=== PATIENT | female | born 1960 | race Caucasian/White ===

== ENCOUNTER → 2017-12-06 13:32 | Outpatient (CLI) | payer OTHER, SELFPAY ==
[2017-12-06 15:15] LABS: Amphetamine Urine VISTA POSITIVE (<1000 ng/mL); Barbiturate Urine VISTA NEGATIVE (< 200 ng/mL); Benzodiazepine Urine VISTA NEGATIVE (< 200 ng/mL); Cocaine Urine VISTA NEGATIVE (< 300 ng/mL); Ecstacy Urine VISTA NEGATIVE (< 500 ng/mL); Methadone Urine VISTA NEGATIVE (< 300 ng/mL); PCP Urine VISTA NEGATIVE (< 25 ng/mL); THC Urine VISTA NEGATIVE (< 50 ng/mL); Vista UDS pH Range 5
== END ==
PROVIDERS: Family Provider Family Medicine; PCP Family Medicine; Visit Provider Anesthesiology Pain Medicine
DX: F11.20 Opioid dependence, uncomplicated (principal)
CPT/HCPCS: 80307

== ENCOUNTER → 2018-03-29 10:58 | Outpatient (CLI) | payer OTHER, SELFPAY ==
--- NOTE | 2018-03-29 11:02 | RAD_ITS ---
STUDY: X-RAY - SACRUM/COCCYX REASON FOR EXAM: Female, 57 years old. Back pain TECHNIQUE: 3 view(s) of the sacrum and coccyx were obtained. COMPARISON: None. FINDINGS: Normal bilateral sacroiliac joints. Normal visualized sacral ala and fused sacral bodies. Normal sacrococcygeal junction with a normal angulation. Normal coccygeal segments. Anterior listhesis L4 on L5. Jaundiced disease at L5-S1. The presacral soft tissue structures are unremarkable. RAD/Sacrum-Coccyx min 2 Views IMPRESSION: Normal x-rays of the sacrum and coccyx. Degenerative changes lumbar spine. Electronically Signed: Stanislav Ceballos DO at 23:58 EDT , Service support ,
--- NOTE | 2018-03-29 11:35 | RAD_ITS ---
STUDY: X-RAY - LUMBAR SPINE REASON FOR EXAM: Female, 57 years old. Back pain times few months TECHNIQUE: 3 view(s) of the lumbar spine were obtained. COMPARISON: MRI lumbar spine 09/09/2017. FINDINGS: Normal lumbar lordosis. There is no substantial scoliosis. There is a normal alignment of the vertebrae. Normal vertebral bodies and endplates. Disc space narrowing with vacuum disc formation at L5-S1, adjacent sclerosis. Mild disc space narrowing L4-5. Grade 1 anterolisthesis L4 on L5 and L5-S1. There is facet arthropathy and hypertrophy L4-5, 5 S1. The soft tissue structures are unremarkable. RAD/Lumbar Spine 2 or 3 Views IMPRESSION: Degenerative changes with predominantly lower lumbar facet arthropathy, grade 1 anterolisthesis L4 on L5, L5-S1 without significant change. Electronically Signed: Ashley Escobar MD at 7:58 EDT , Service support ,
== END ==
PROVIDERS: Family Provider Family Medicine; PCP Family Medicine; Visit Provider Anesthesiology Pain Medicine
DX: M54.9 Dorsalgia, unspecified (principal); W19.XXXA Unspecified fall, initial encounter
CPT/HCPCS: 72100; 72220

== ENCOUNTER 2021-01-04 19:09 | Emergency (ER) | payer MEDICARE, SELFPAY ==
[2021-01-04 19:10] VITALS: BP 155/86; PULSE 88; RESP 18; TEMP 36.6; O2SAT 98; BMI 39.7
--- NOTE | 2021-01-04 19:20 | EKG12_ITS ---
Test Reason : ABD PAIN Blood Pressure : / mmHG Vent. Rate : 082 BPM Atrial Rate : 082 BPM P-R Int : 156 ms QRS Dur : 078 ms QT Int : 384 ms P-R-T Axes : 068 005 048 degrees QTc Int : 448 ms Normal sinus rhythm Normal ECG Confirmed by ALEJANDRO FLORES, DAISY ([id number]), news copy editor AGUSTÍN SIDDIQUI ([id number]) on 01/08/2021 7:47:58 AM Referred By: ROCIO Confirmed By:DAISY ALLEN MD
--- NOTE | 2021-01-04 19:20 | CT_ITS ---
STUDY: CT ABDOMEN AND PELVIS WITHOUT CONTRAST REASON FOR EXAM: Female, 60 years old. Pain RADIATION DOSAGE (If Supplied By Facility): CTDIvol = ( 21.43 ) mGy, DLP = ( 1102.9 ) mGycm TECHNIQUE: Transaxial images were obtained from the dome of the diaphragm to the symphysis pubis without oral contrast, and without intravenous contrast. Sagittal and coronal images were reconstructed. Individualized dose optimization techniques were used for this CT. COMPARISON: None. FINDINGS: The visualized lung bases are unremarkable. The visualized portions of the heart are within normal limits. Normal liver. Cholelithiasis. Mild dilatation of the extrahepatic biliary system. Normal spleen. Normal pancreas. Normal bilateral adrenal glands. Normal right kidney. Normal left kidney. Small hiatal hernia. Normal small intestine. Normal colon. The appendix is visualized and appears normal. Normal abdominal aorta. Normal inferior vena cava. Normal retroperitoneum. Normal urinary bladder. Normal abdominal wall. Degenerative vertebral changes. Lumbosacral surgical fusion.. CT/Abdomen/Pelvis without Cont IMPRESSION: Small hiatal hernia. Cholelithiasis. Dilated common bile duct. Electronically Signed: Redd Walton DO at 21:01 EDT Tel [phone], Service support ,
[2021-01-04 19:30] LABS: Absolute Lymphocyte Count 1.19 X10^3/uL (0.83-4.51); Absolute Neutrophil Count 7.1 X10^3/uL (2.0-7.7); Basophil# 0.06 X10^3/uL; Basophil% 0.6 % (0-1); Eosinophil# 0.12 X10^3/uL; Eosinophils% 1.3 % (0-5); Hematocrit 42.6 % (37-47); Hemoglobin 12.1 g/dL (12.0-15.0); Lymphocyte # 1.19 X10^3/ul (4.0); Lymphocyte % 12.8 % (19-41); Mean Corp Hgb Conc 28.4 g/dL (32-36); Mean Corpuscular Hgb 23.3 pg (27.0-32.0); Mean Corpuscular Volume 81.9 fL (81-99); Mean Platelet Vol. 10.6 fl (6.2-12.0); Monocyte# 0.77 X10^3/uL; Monocyte% 8.3 % (0-10); NRBC Flagged by Analyzer 0 % (0-5); Neutrophil % 76.7 % (47-70); Platelet Count 369 K/mm3 (150-450); RBC Distribution Width CV 16.5 % (11.6-14.6); RBC Distribution Width SD 49.1 fl (35.1-43.9); White Blood Count 9.3 K/mm3 (4.4-11.0)
[2021-01-04] MEDS: morphine 8 MG/ML Syringe IV ×3 (19:32→22:40)
[2021-01-04] MEDS: Ondansetron 4 MG/2 ML Vial IV (19:32)
--- NOTE | 2021-01-04 19:33 | ED.DCSUM_ITS ---
History of Present Illness Chief Complaint: Abd Pain Informant: Patient, Family Onset: Today, Weeks Maximum Severity: Mild Narrative: Patient presents complaining of right-sided abdominal pain that she has had on and off for weeks she did not see her provider has not had this evaluated it intensified today, for unspecified reasons, it is not associate with activity food or meals, her bowel and bladder habits are unremarkable she has not seen her providers in over a month so some of her meds are not been taken, she has no history of GI ailment, no history of hepatobiliary dysfunction ulcer gallbladder bowel problems, she has had no exposures to coronavirus no cough no fever Past Medical History - Allergies and Home Meds Allergies/Adverse Reactions: Allergies hydroxychloroquine [From Plaquenil] Allergy (Verified 01/04/21 19:12) Hives nalbuphine [From Nubain] Allergy (Verified 01/04/21 19:12) Itching flu vaccine Allergy (Mild, Uncoded 01/04/21 19:12) unknown Primary Care Physician: Rigo Marcano MD [Primary Care Provider] - Past Medical History: - - Multiple unspecified disorders she is not been taking her meds for about a month Surgical History: - - BLTL. Smoking Status: Current every day smoker - Family History Maternal Family History: Family History (Last Updated 11/26/17 @ 09:29 by Gabby Borja) Other Cancer Cardiovascular disease Diabetes Hypertension Family History: Reports: Cancer, Heart Disease, Hypertension Paternal Family History: Family History (Last Updated 11/26/17 @ 09:29 by Gabby Borja) Other Cancer Cardiovascular disease Diabetes Hypertension Family History: Reports: Cancer, Heart Disease, Hypertension Review of Systems General: Denies: Chills, Fever, Sweats Eyes: Denies: Visual changes - bilaterally, Diplopia ENT: Denies: Rhinorrhea, Sore throat Cardiovascular: Denies: Chest pain, Palpitations Respiratory: Denies: Dyspnea, Cough, Dyspnea on exertion Gastrointestinal: Reports: Abdominal pain. Denies: Nausea, Vomiting, Diarrhea, Melena, Hematochezia Genitourinary: Denies: Dysuria, Hematuria, Frequency Musculoskeletal: Denies: Back pain, Extremity Pain Skin: Denies: Rash, Wounds Neurological: Denies: Headache, Weakness, Numbness Physical Exam Vital Signs/Narrative: Vital Signs Temp Pulse Resp BP Pulse Ox 01/04/21 19:10 97.8 F 88 18 155/86 H 98 General: Well nourished, Well developed, No Acute Distress Head: Normocephalic, Atraumatic Eyes: Perrl, EOMI ENT: Moist mucous membranes, No rhinorrhea Neck: Supple, Nontender Cardiovascular: Regular rate, Regular rhythm, No murmurs Respiratory: No distress, CTA bilaterally, Chest nontender Abdomen: Soft, Nondistended, Normal bowel sounds, Tender Back: Nontender, Normal Inspection Extremities: Nontender, No edema Skin: Normal color, No rash Neurological: Alert, Oriented x3, Cranial nerves II-XII grossly intact, Normal Strength, Normal Sensation Psychological: Normal affect, Normal Mood Diagnostic/Tx/Re-eval - Medical Decision Making Has pain to the right upper abdomen there is no rebound or guarding the backs unremarkable vital signs are unremarkable given all the above ED screening evaluation Patient's ED evaluation shows a white count of 9, her liver enzymes are elevated, her lipase is 32,000, her CT abdomen pelvis shows intrahepatic duct dilatation and dilatation of common bile duct, Lashanda lithiasis, at this time she was started on IV antibiotics continue pain management fluids, we spoke with surgery they indicates she will require ERCP Reviewed the CT report with the radiologist again they do not note any major abnormalities of the gallbladder except for the gallstones there is a stone that may or may not be in the neck of the gallbladder there is no gallbladder wall edema Spoke with the patient about potentially transferring to tertiary care center she agreed to transfer to [facility] if that was necessary by the surgical team here informs me now that they are unable to perform ERCP at this time we spoke with the [facility] transfer center septic her and she is transfer to [facility] the management, she remains hemodynamically stable Transfer to [facility] ED Impression final Cholecystitis, likely common bile duct stone acute pancreatitis ED Disposition - Plan for ED Patient: Referrals: Rigo Marcano MD [Primary Care Provider] -
[2021-01-04] MEDS: 0.9% Normal Saline 1,000 ML 125 ML IV (19:53)
[2021-01-04 21:00] VITALS: O2SAT 83
[2021-01-04 21:01] VITALS: BP 143/39; PULSE 73; RESP 18; O2SAT 98
[2021-01-04 21:21] LABS: ALB/GLOB Ratio 0.8 RATIO (0.9-2.4); AST(SGOT) 197 U/L (15-37); Alanine Aminotransfer ALT/SGPT 269 U/L (13-56); Albumin, Serum 3.9 g/dL (3.2-5.0); Alkaline Phosphatase 502 U/L (45-117); Anion Gap 8 (5-15); BUN 8 mg/dL (7-18); Calcium,Total 9.6 mg/dL (8.5-10.1); Chloride 106 mmol/L (98-107); EST Glomerular Filtration Rate 78 mL/min (>60); Est Glom Filt Rate - Afr Amer 94 mL/min (>60); Estimated Creatinine Clearance 66.19 ml/min; Globulin 4.7 g/dL (2.2-4.2); Glucose 119 mg/dL (74-106); Lipase 32049 U/L (73-393); Potassium 3.7 mmol/L (3.5-5.1); Protein, Total 8.6 g/dL (6.4-8.2); Sodium Level 138 mmol/L (136-145)
[2021-01-04 21:41] LABS: Bacteria 0 SEEN /hpf (None Seen); White Blood Cells 0 SEEN /hpf (0-5)
[2021-01-04 21:43] LABS: Color, Urine Amber (Yellow); Glucose, Dipstick Normal (Normal); Ketone-Dipstick 50 mg/dl (Negative); Leukocyte Esterase-Dipstick 25 /ul (Negative); Nitrite-Dipstick Negative (Negative); Occult Blood-Urine 10 /ul (Negative); Protein-Dipstick 30 mg/dl (Negative); Urine Clarity Cloudy (Clear); Urine Urobilinogen 4 mg/dl (Normal)
[2021-01-04 21:50] LABS: Urine Bilirubin Dipstick 3 mg/dL (Negative)
[2021-01-04 21:51] LABS: Squamous Epithelial Cells - UA 0-5 SEEN /hpf (5-10)
[2021-01-04 21:53] LABS: Hyaline Cast 0-5 SEEN /lpf (0-5)
[2021-01-04 21:54] LABS: Red Blood Cells-Urine 0-5 SEEN /hpf (0-5)
[2021-01-04 21:57] LABS: Mucous, Urine RARE /hpf (<or=2+)
[2021-01-04 22:24] VITALS: BP 117/50; PULSE 57; RESP 18; O2SAT 95
== END 2021-01-04 23:04 | disposition short-term general hospital (02) ==
LOC: ED 21:43
PROVIDERS: Emergency Provider Emergency Medicine; PCP Family Medicine
DX: K80.20 Calculus of gallbladder without cholecystitis without obstruction (principal); K44.9 Diaphragmatic hernia without obstruction or gangrene; K83.8 Other specified diseases of biliary tract; F17.200 Nicotine dependence, unspecified, uncomplicated
CPT/HCPCS: 74176; 80053; 81001; 83690; 85025; 93005; 96361; 96365; 96375; 96376; 99285; J7030; A4216; J2405

== ENCOUNTER 2023-08-23 03:35 | Inpatient (IN) | payer MEDICARE, SELFPAY ==
[2023-08-23] VITALS (18 sets, daily range): BP systolic 143–209; BP diastolic 59–132; PULSE 78–172; RESP 16–26; TEMP 36.6–36.7; O2SAT 89–98; BMI 38.4; BMI 38.0
--- NOTE | 2023-08-23 03:44 | EKG12_ITS ---
Test Reason : DYSRHYTHMIA Blood Pressure : / mmHG Vent. Rate : 097 BPM Atrial Rate : 097 BPM P-R Int : 158 ms QRS Dur : 080 ms QT Int : 384 ms P-R-T Axes : 054 006 052 degrees QTc Int : 487 ms Normal sinus rhythm Prolonged QT Abnormal ECG Confirmed by ALEJANDRO FLORES, DAISY ([id number]), general expeditor MATTEO MAYO ([id number]) on 08/25/2023 12:43:24 PM Referred By: Confirmed By:DAISY ALLEN MD
--- NOTE | 2023-08-23 03:44 | RAD_ITS ---
EXAM: XR CHEST, 1 VIEW CLINICAL INDICATION: cough, dyspnea TECHNIQUE: Frontal view of the chest. COMPARISON: 02/12/2017. FINDINGS: LUNGS AND PLEURAL SPACES: Unremarkable. No consolidation or edema. No pneumothorax. No effusion. HEART: Unremarkable. Cardiac silhouette not enlarged. MEDIASTINUM: Central airways and mediastinal contour are unremarkable. BONES/JOINTS: Unremarkable. No acute fracture. SOFT TISSUES: Unremarkable. RAD/Chest 1 View (Portable) IMPRESSION: No radiographic evidence of acute cardiopulmonary disease. Electronically Signed: Richy Jeronimo MD at 4:55 EST ,
--- NOTE | 2023-08-23 03:45 | ED.VIS.DYS ---
HPI History of Present Illness Chief Complaint: Shortness of Breath Detail of Chief Complaint: Shortness of breath that woke her up tonight Informant: patient Narrative Narrative: Patient presents to the emergency department complaining of shortness of breath. Patient states that she has had a cough for about 6 weeks. Her last couple days cough bringing up some yellow phlegm. She denies chest pain. She denies recent travel or surgery. She states that her grandkids were sick 6 weeks ago but they have gotten better. Patient states that she has not gone to the doctors for years. Currently noncompliant with her blood pressure medicine. She has not had a fever. [facility] Medical History Other intervertebral disc degeneration, lumbar region Other intervertebral disc degeneration, lumbosacral region Radiculopathy, lumbar region Radiculopathy, lumbosacral region Home Medications NK 08/23/23 [History Last Taken Unknown] Allergy/AdvReac Type Severity Reaction Status Date / Time Influenza Virus Vaccines Allergy Mild PT UNABLE Verified 01/18/23 11:15 TO RESPOND-NEEDS F/U hydroxychloroquine Allergy Hives Verified 01/04/21 19:12 [From Plaquenil] nalbuphine [From Nubain] Allergy Itching Verified 01/04/21 19:12 Family History Other Cancer Cardiovascular disease Diabetes Hypertension Surgical History partial ovary removed Social History Smoking Status: Current some day smoker tobacco type: e-cigarettes ROS ROS ED Review of Systems ROS Unobtainable: other Constitutional Constitutional ED: Reports lethargy; Denies chills, fever(s), sweats or weight loss Eyes Eyes: Denies blurry vision, change in vision or diplopia ENT ENT ED: Denies rhinorrhea or sore throat Cardiovascular Cardiovascular: Denies chest pain, orthopnea or racing heartbeat Respiratory/Chest Respiratory/Chest: Reports dyspnea and dyspnea on exertion; Denies cough, orthopnea or sputum Gastrointestinal Gastrointestinal: Denies abdominal pain, diarrhea, nausea or vomiting Genitourinary Genitourinary ED: Denies dysuria, hematuria or urinary frequency Musculoskeletal Musculoskeletal: Denies arthralgias, back pain, myalgias or neck pain Integumentary Denies abscess, Abrasions or rash Neurologic Neurologic: Denies headache(s) or weakness Psychiatric Psychiatric: Denies anxiety, depression or suicidal thoughts Endocrine Endocrinology: Denies polydipsia, polyphagia or polyuria Hematologic/Lymphatic Hematologic/Lymphatic: Denies easy bleeding, easy bruising or lymphadenopathy Allergic/Immunologic Allergic/Immunologic ED: Denies mouth swelling, tongue swelling or urticaria EXAM Physical Exam Const Vital Signs: 08/23/23 03:36 08/23/23 03:39 08/23/23 03:48 Temperature 98.0 F Temperature Source Temporal Pulse Rate 118 H Respiratory Rate 22 H Respiratory Effort Short of Breath Respiratory Pattern Tachypnea Blood Pressure 209/69 H Blood Pressure Mean 115 Pulse Ox 93 93 Oxygen Delivery Method Room Air Room Air Room Air 08/23/23 03:50 08/23/23 06:22 08/23/23 07:26 Temperature Temperature Source Pulse Rate 112 H 172 H Respiratory Rate 26 H 26 H Respiratory Effort Respiratory Pattern Tachypnea Blood Pressure 143/93 H Blood Pressure Mean 109 Pulse Ox 98 94 Oxygen Delivery Method Room Air Room Air 08/23/23 08:02 Temperature Temperature Source Pulse Rate 129 H Respiratory Rate 23 H Respiratory Effort Respiratory Pattern Blood Pressure 150/132 H Blood Pressure Mean 138 Pulse Ox 92 Oxygen Delivery Method Room Air Positive well nourished and well developed General Appearance ED: well developed and NAD HEENT Reports TM's clear and moist mucous membranes normocephalic and atraumatic; Negative for trauma or tenderness Tympanic Membrane ED: Yes TM's clear Eyes PERRL and EOMs intact bilaterally General Eye ED: Negative for pale conjunctiva or scleral icterus Neck no lymphadenopathy, supple and no JVD General: Negative for tenderness Chest Wall inspection of chest normal and palpation of chest normal Chest: Negative for tenderness Resp normal respiratory effort and No clear to auscultation bilaterally Resp Narrative: Good aeration bilaterally. Patient has expiratory wheezes bilaterally. Mild tachypnea. Mild conversational dyspnea. No accessory muscle use or retractions. Effort and Inspection: Negative for respiratory distress or pain with movement Auscultation: wheezes; Negative for rhonchi or diminished lung sounds Cardio regular rate, regular rhythm, S1 normal heart sound, S2 normal heart sound and no murmurs Peripheral Pulses: pulses 2+ throughout GI normal to inspection, nondistended, normoactive bowel sounds, soft to palpation, non-tender, non-distended and no masses Back/Spine no CVA tenderness and no thoracic nor lumbar tenderness Extremity normal to inspection General Extremety ED: Negative for edema General Extremity: Negative for edema Neuro oriented x3, CN's II-XII intact bilaterally, no sensory deficits noted and gait normal Sensorium / Orientation: awake, alert, oriented to person, oriented to place and oriented to time Motor Exam: strength 5/5 throughout and strength abnormal Psych mental status grossly normal Skin no rashes or lesions noted and no wounds MDM MDM MDM Narrative Medical decision making narrative: Patient presented with cough and dyspnea with wheezing. In the differential would be pneumonia or asthmatic bronchitis. Patient also initially presented hypertensive but without treatment and her hypertension improved. Systolic down to the 160s and diastolic down into the 80s. Patient was given DuoNeb aerosol as well as Solu-Medrol 125 mg IV. She continued to complain of dyspnea and was given more breathing treatments. She continued to complain of feeling dyspneic therefore I obtained a D-dimer which was elevated. I ordered a CTA of the chest to rule out PE. While awaiting D-dimer results patient became tachycardic and repeat EKG shows A-fib RVR I ordered Cardizem 20 mg IV bolus. Ordered a heparin drip. Discussed case with hospitalist will evaluate patient for admission. Turn case over to morning physician awaiting CTA results. Lab Data Attestation: I reviewed the patient's lab results. Labs: Laboratory Results - last 24 hr 08/23/23 08/23/23 03:45 03:54 WBC 6.8 RBC 4.16 L Hgb 9.8 L Hct 34.2 L MCV 82.2 MCH 23.6 L MCHC 28.7 L RDW Std Deviation 49.7 H RDW Coeff of Mango 16.8 H Plt Count 392 MPV 9.2 Immature Gran % (Auto) 0.300 Neut % (Auto) 67.8 Lymph % (Auto) 18.9 L [place] % (Auto) 8.4 Eos % (Auto) 3.7 Baso % (Auto) 0.9 Absolute Neuts (auto) 4.6 Absolute Lymphs (auto) 1.28 Nucleated RBC % 0 D-Dimer Quant (PE/DVT) 1.08 H* Sodium 140 Potassium 3.6 Chloride 107 Carbon Dioxide 25.0 Anion Gap 8 BUN 8 Creatinine 0.59 Estim Creat Clear Calc 87.56 Est GFR (MDRD) Af Amer 133 Est GFR (MDRD) Non-Af 110 BUN/Creatinine Ratio 13.5 Glucose 121 H Lactic Acid 1.3 Calcium 8.9 Radiography Diagnostic Testing: Clinical Impression(s) from Imaging Studies Chest X-Ray 08/23/23 03:44 IMPRESSION: No radiographic evidence of acute cardiopulmonary disease. Electronically Signed: Richy Jeronimo MD at 4:55 EST , 1 view chest x-ray obtained interpreted by myself as no evidence of infiltrate or pneumothorax or acute process. Radiology in agreement. EKG Initial EKG: Attestation: I personally reviewed and interpreted this EKG as follows: Comments: Sinus rhythm with rate of 97 bpm with prolonged QT Repeat EKG secondary to tachycardia shows A-fib RVR with rate of [address] changes. Discharge Plan Triage Chief Complaint: Shortness of Breath ED Provider: Gabriella Conrad Dx/Rx/DC Orders Clinical Impression: Acute dyspnea, Reactive airway disease, Atrial fibrillation with rapid ventricular response Prescriptions: No Action NK Primary Care Provider: Rigo Marcano Referrals: Rigo Marcano MD [Primary Care Provider] - Disposition Disposition: Acute Care [facility]
[2023-08-23] MEDS: Ipratropium/Albuterol Sulfate 3 ML AMPUL.NEB INHALATION ×2 (03:50→05:21)
[2023-08-23 04:03] LABS: Absolute Lymphocyte Count 1.28 X10^3/uL (0.83-4.51); Absolute Neutrophil Count 4.6 X10^3/uL (2.0-7.7); Basophil# 0.06 X10^3/uL; Basophil% 0.9 % (0-1); Eosinophil# 0.25 X10^3/uL; Eosinophils% 3.7 % (0-5); Hematocrit 34.2 % (37-47); Hemoglobin 9.8 g/dL (12.0-15.0); Lymphocyte # 1.28 X10^3/ul (0.83-4.51); Lymphocyte % 18.9 % (19-41); Mean Corp Hgb Conc 28.7 g/dL (32-36); Mean Corpuscular Hgb 23.6 pg (27.0-32.0); Mean Corpuscular Volume 82.2 fL (81-99); Mean Platelet Vol. 9.2 fl (6.2-12.0); Monocyte# 0.57 X10^3/uL; Monocyte% 8.4 % (0-10); NRBC Flagged by Analyzer 0 % (0-5); Neutrophil # 4.58 X10^3/uL (2.7-7.7); Neutrophil % 67.8 % (47-70); Platelet Count 392 K/mm3 (150-450); RBC Distribution Width CV 16.8 % (11.6-14.6); RBC Distribution Width SD 49.7 fl (35.1-43.9); Red Blood Count 4.16 M/mm3 (4.2-5.4); White Blood Count 6.8 K/mm3 (4.4-11.0)
[2023-08-23] MEDS: MethylPREDNISolone 125 MG/2 ML Vial IV (04:07)
[2023-08-23] MEDS: 0.9% Normal Saline (1000mL) 1,000 ML 150 ML IV (04:07)
[2023-08-23 04:40] LABS: Anion Gap 8 (5-15); BUN 8 mg/dL (7-18); BUN/Creat Ratio 13.5 RATIO (10-20); Calcium,Total 8.9 mg/dL (8.5-10.1); Chloride 107 mmol/L (98-107); Creatinine, Serum 0.59 mg/dL (0.55-1.02); EST Glomerular Filtration Rate 110 mL/min (>60); Est Glom Filt Rate - Afr Amer 133 mL/min (>60); Estimated Creatinine Clearance 87.56 ml/min; Glucose 121 mg/dL (74-106); Potassium 3.6 mmol/L (3.5-5.1); Sodium Level 140 mmol/L (136-145)
[2023-08-23 04:41] LABS: Lactic Acid 1.3 mmol/L (0.4-1.9)
[2023-08-23] MEDS: Albuterol 2.5 MG/3 ML VIAL.NEB. INHALATION ×2 (05:21→05:32)
--- NOTE | 2023-08-23 05:55 | CPS ---
[8803] x1 Duoneb & x2 Albuterol given to pt. in ER. Pre-HR=96, RR=26 with diminished breath sounds with scattered wheezes throughout. Post-MW=109, RR=24 with clearer breath sounds throughout; scattered wheezes still present.
[2023-08-23 07:44] LABS: D-Dimer Quantitative (DVT/PE) 1.08 FEU/ug/m (0.27-0.49)
--- NOTE | 2023-08-23 07:46 | CT_ITS ---
STUDY: CTA CHEST WITH CONTRAST REASON FOR EXAM: Female, 62 years old. Dyspnea RADIATION DOSAGE (If Supplied By Facility): CTDIvol = ( 14.76 ) mGy, DLP = ( 440.53 ) mGycm TECHNIQUE: Transaxial imaging was performed following intravenous administration of 100 ml of Isovue-370 contrast material. Coronal and sagittal reformatted images were created. 3D post processed images were created. Individualized dose optimization techniques were used for this CT. COMPARISON: Prior study dated: 02/12/17 FINDINGS: LUNGS: There are no pulmonary infiltrates. There are no pulmonary nodules or masses. PLEURAL SPACE: There are no pleural effusions. There is no pneumothorax. MEDIASTINUM: The heart and pericardium are within normal limits. There is no pneumomediastinum. There is no thoracic lymphadenopathy. VESSELS There is no pulmonary embolus. The pulmonary artery is normal in caliber. There is a stable 4.8 cm aneurysm of the ascending aorta. The aortic arch and descending thoracic aorta are normal in caliber. There is no thoracic aortic dissection. UPPER ABDOMEN: Images through the upper abdomen demonstrate no significant abnormality. BONES: There are no destructive osseous lesions. SOFT TISSUES: The visualized soft tissues are unremarkable. CT/CTA Chest W/WO Contrast IMPRESSION: No pulmonary embolus. Stable 4.8 cm aneurysm of the ascending aorta. No thoracic aortic dissection. No pulmonary infiltrates or pleural effusions. Electronically Signed: Heriberto Christensen MD at 9:02 EST ,
--- NOTE | 2023-08-23 07:52 | PCM.HP.STD ---
HPI - General General Date of Admission: 08/23/23 Date of Service: 08/23/23 HPI Narrative BEE SIDDIQUI, is a 62 F who came to ED after she was short of breath, progressively worsening for 6 weeks along with cough. She stated she had episodes of shortness of breath on exertion for last 6 weeks and mild cough with clearish sputum which turned with thick yellowish-greenish sputum. Last night she woke up with shortness of breath therefore came to ED. Denies fever or chills. She has mild pleuritic chest pain on the left posterior chest wall on coughing. In ED, no hypoxia but was tachypneic and short of breath. She is also tachycardic and BP high 209/69. Initially was sinus tachycardia but turned into A-fib with RVR after sometimes giving DuoNeb. She had 20 mg IV Cardizem bolu. Heart rate slowed down later on converted. She has history of SVT and was recommended ablation long time ago but has not seen cardiology/EP for at least for 5 years. Currently, she is not on home medications. She used to take metoprolol. She had history of mild smoking quit cigarette 10 years ago but she is still symptoms due to e-cigarette/vaping. She stated she used to smoke sometimes and a pack used to last for 7 days. Denies history of COPD and asthma and chronic shortness of breath. [facility] Medical History Other intervertebral disc degeneration, lumbar region Other intervertebral disc degeneration, lumbosacral region Radiculopathy, lumbar region Radiculopathy, lumbosacral region Home Medications NK 08/23/23 [History Last Taken Unknown] Allergy/AdvReac Type Severity Reaction Status Date / Time Influenza Virus Vaccines Allergy Mild PT UNABLE Verified 01/18/23 11:15 TO RESPOND-NEEDS F/U hydroxychloroquine Allergy Hives Verified 01/04/21 19:12 [From Plaquenil] nalbuphine [From Nubain] Allergy Itching Verified 01/04/21 19:12 Family History Other Cancer Cardiovascular disease Diabetes Hypertension Surgical History partial ovary removed Social History household members: spouse and children Smoking Status: Current some day smoker tobacco type: e-cigarettes ROS ROS Narrative Constitutional: Reports fatigue and weakness. No fever. HEENT: Reports systems reviewed and no addt'l complaints, except as documented Respiratory/Chest: Mild wheezing. Rest as described in HPI. CVS: Pleuritic chest pain as described in HPI Gastrointestinal: Denies coffee ground emesis, hematemesis or vomiting Genitourinary: Denies burning urination or new urinary tract symptoms Musculoskeletal: Denies acute joint pain or limited range of motion. No acute injury Neurologic: Denies seizure-like symptoms. No acute strokelike symptoms. skin: No ulcer. No rash Endocrinology: Reports systems reviewed and no addt'l complaints, except as documented Hematologic/Lymphatic: Reports systems reviewed and no addt'l complaints, except as documented Rest 14 ROS are negative except as mentioned in HPI Vital Signs Vital Signs Vital Signs: 08/23/23 03:36 08/23/23 03:39 08/23/23 03:48 Temperature 98.0 F Temperature Source Temporal Pulse Rate 118 H Respiratory Rate 22 H Respiratory Effort Short of Breath Respiratory Pattern Tachypnea Blood Pressure 209/69 H Blood Pressure Mean 115 Pulse Ox 93 93 Oxygen Delivery Method Room Air Room Air Room Air 08/23/23 03:50 08/23/23 06:22 08/23/23 07:26 Temperature Temperature Source Pulse Rate 112 H 172 H Respiratory Rate 26 H 26 H Respiratory Effort Respiratory Pattern Tachypnea Blood Pressure 143/93 H Blood Pressure Mean 109 Pulse Ox 98 94 Oxygen Delivery Method Room Air Room Air Weight Weight: 223 lb 12.307 oz Body Mass Index (BMI) 38.4 Physical Exam Narrative General: Alert, Oriented x3, Cooperative HEENT: Atraumatic, PERRLA, EOMI, Normocephalic Oral: No Gingival or Mucosal Lesions/ Ulcerations Neck: Supple, No JVD, Negative Carotid Bruits Lungs: Air entry diminished in bilateral lung bases. Bilateral expiratory wheezing. Tachypnea Cardiovascular: Regular rate, Regular Rhythm, mild sinus tachycardia, No murmurs Abdomen: Bowel Sounds Present, Soft, Non Tender, Non-Distended : No renal angle tenderness. No suprapubic tenderness. Extremities: No edema, Capillary Refill Less than 3 Seconds Skin: No rashes, No breakdown Musculoskeletal: No Tenderness to Palpation of Joints or Extremities. ROM intact. Neurological: Cranial nerves II-XII grossly intact, DTR 2+/4. No acute focal neurological deficit. Psych/Mental Status: Anxious, ADHD. Results Lab / Micro Data 08/23/23 03:45 08/23/23 03:45 Labs: Laboratory Results - last 24 hr 08/23/23 03:45: WBC 6.8, RBC 4.16 L, Hgb 9.8 L, Hct 34.2 L, MCV 82.2, MCH 23.6 L, MCHC 28.7 L, RDW Std Deviation 49.7 H, RDW Coeff of Mango 16.8 H, Plt Count 392, MPV 9.2, Immature Gran % (Auto) 0.300, Neut % (Auto) 67.8, Lymph % (Auto) 18.9 L, [place] % (Auto) 8.4, Eos % (Auto) 3.7, Baso % (Auto) 0.9, Absolute Neuts (auto) 4.6, Absolute Lymphs (auto) 1.28, Nucleated RBC % 0, Sodium 140, Potassium 3.6, Chloride 107, Carbon Dioxide 25.0, Anion Gap 8, BUN 8, Creatinine 0.59, Estim Creat Clear Calc 87.56, Est GFR (MDRD) Af Amer 133, Est GFR (MDRD) Non-Af 110, BUN/Creatinine Ratio 13.5, Glucose 121 H, Lactic Acid 1.3, Calcium 8.9 08/23/23 03:54: D-Dimer Quant (PE/DVT) 1.08 H* Micro: Microbiology 08/23/23 04:10 Nasal Secretion SARS-CoV-2 & FLU Antigen (Rapid) - Final Imagaing Radiology Impression Chest X-Ray 08/23/23 03:44 IMPRESSION: No radiographic evidence of acute cardiopulmonary disease. Electronically Signed: Richy Jeronimo MD at 4:55 EST , Assessment & Plan Assessment/Plan (1) Reactive airway disease: QUALIFIERS: Asthma severity: severe Asthma persistence: persistent Asthma complication type: with acute exacerbation Qualified Code(s): J45.51 - Severe persistent asthma with (acute) exacerbation (2) Atrial fibrillation with rapid ventricular response: PLAN: Plan 62-year-old female being admitted for progressive worsening shortness of breath/dyspnea, cough with sputum production 1. Subacute worsening shortness of breath/dyspnea, transient new onset A-fib with history of SVT: Patient is being admitted to PCU. It is unclear whether patient shortness of breath/dyspnea on exertion is a cardiac or pulmonary in origin. She might have airway reactive disease. BNP and 2D echo ordered. Respiratory panel and COVID PCR ordered. Sputum culture ordered. Patient is being managed on scheduled bronchodilator, IV Solu-Medrol, Mucinex, incentive spirometry and Pep. Chest x-ray individually does not show acute cardiopulmonary abnormality. CTPA did not show pulmonary embolism 2. History of SVT with transient new onset A-fib, resolved. Had transient A-fib probably due to DuoNeb and later which got converted with 20 mg IV Cardizem. Started on metoprolol 25 mg twice daily. 3. Ascending thoracic aortic Aneurysm: CTA chest showed stable 0.8 cm, AA thoracic aneurysm but no thoracic aortic dissection. No pulmonary infiltrate. No effusions. (4) Essential hypertension, hypertensive urgency: Systolic blood pressure is still high. Started on HCTZ was Lisinopril. From previous admission in 2017 it seems patient was on metoprolol, hydrochlorothiazide, Lasix. (5) Hypothyroidism: Patient not taking Synthroid. TSH and free T4 tomorrow AM. (6) ADHD: Patient was on Adderall in the past (7) morbid strange obesity: BMI 38.0 kg/m?. 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 (8) DVT prophylaxis: SCDs, lovenox. Living will/advanced directive/end of life care: Patient does not have living will or advanced directive. She does not have designated power of health care attorney for health office and states she lives with her dog/pets. After discussion of benefits/risks procedures involved with full code, DNR CC arrest and DNR CC, the patient opted for full code. Patient does want artificial life support including intubation, tube feed, ventilator and/chest compression, central venous catheter, vasopressor and DC shock if needed Total time spent in [id number] encounter in discussion of advanced directive 17 minutes. Microbiology Past 72 Hours 08/23/23 04:10 Nasal Secretion SARS-CoV-2 & FLU Antigen (Rapid) - Final Laboratory Results 08/23/23 03:45: WBC 6.8, RBC 4.16 L, Hgb 9.8 L, Hct 34.2 L, MCV 82.2, MCH 23.6 L, MCHC 28.7 L, RDW Std Deviation 49.7 H, RDW Coeff of Mango 16.8 H, Plt Count 392, MPV 9.2, Immature Gran % (Auto) 0.300, Neut % (Auto) 67.8, Lymph % (Auto) 18.9 L, [place] % (Auto) 8.4, Eos % (Auto) 3.7, Baso % (Auto) 0.9, Absolute Neuts (auto) 4.6, Absolute Lymphs (auto) 1.28, Nucleated RBC % 0, Sodium 140, Potassium 3.6, Chloride 107, Carbon Dioxide 25.0, Anion Gap 8, BUN 8, Creatinine 0.59, Estim Creat Clear Calc 87.56, Est GFR (MDRD) Af Amer 133, Est GFR (MDRD) Non-Af 110, BUN/Creatinine Ratio 13.5, Glucose 121 H, Lactic Acid 1.3, Calcium 8.9 08/23/23 03:54: D-Dimer Quant (PE/DVT) 1.08 H* Clinical Impression(s) from Imaging Studies Chest X-Ray 08/23/23 03:44 IMPRESSION: No radiographic evidence of acute cardiopulmonary disease. Charges/Coding Visit Charges Inpatient E&M: 77229 Init Hosp L3 Procedures Hospitalists Procedures: 97382 Advncd Care Plan 30 Min
[2023-08-23] MEDS: dilTIAZem 25 MG/5 ML Vial 20 MG IV BOLUS (07:56)
[2023-08-23 08:13] LABS: Prothrombin Time (Protime)PT. 13.6 SECONDS (11.7-14.9)
[2023-08-23 08:14] LABS: Partial Thromboplast Time 29.2 Seconds (24.1-36.2)
[2023-08-23] MEDS: HEPARIN/D5w 25,000 UNITS 25,000 UNITS/250 ML IV.SOLN. 14 UNITS CONT INF (08:35)
[2023-08-23] MEDS: Heparin Injection (Vial) 5,000 UNIT/ML VIAL 7500 UNIT IV (08:36)
[2023-08-23 09:02] LABS: Magnesium 2.6 mg/dL (1.6-2.6); Phosphorus 3.6 mg/dL (2.5-4.9)
--- NOTE | 2023-08-23 09:10 | ECHOD_ITS ---
Reason For Study: DYSPNEA Procedure This was a 2D Doppler, Color Flow transthoracic echocardiogram. Technically difficult study due to patient movement. Exam performed portable in patient room. Left Ventricle Mildly dilated left ventricle. Mild concentric left ventricular hypertrophy. The left ventricular ejection fraction is 60 %. Diastolic function is indeterminate. Right Ventricle Normal right ventricle. Atria The left atrium is mildly enlarged. Normal right atrium. Mitral Valve Mild (1+) mitral valve insufficiency. Tricuspid Valve Mild tricuspid valve insufficiency. Aortic Valve Trisinus/trileaflet aortic valve. Moderately severe (3+) aortic valve insufficiency. Pulmonic Valve The pulmonic valve is not well visualized. Trivial pulmonic valve insufficiency. Great Vessels Severely dilated aortic root. Pericardium/Pleural No pericardial effusion. MMode/2D Measurements & Calculations LVIDd: 5.6 cm IVSd: 1.1 cm LVOT diam: 2.3 cm LVIDs: 3.3 cm LVPWd: 1.2 cm LVOT area: 4.0 cm2 RVDd: 2.9 cm FS: 40.5 % Ao root diam: 5.0 cm LAV(MOD-bp): 61.5 ml LVAd ap4: 29.4 cm2 LAV(MOD-bp) Indexed: 30.0 ml/m2 LVLd ap4: 8.2 cm LAV(MOD-sp2): 58.5 ml EDV(MOD-sp4): 86.4 ml LAV(MOD-sp4): 59.1 ml EDV(sp4-el): 89.2 ml LVAs ap4: 20.3 cm2 LVLs ap4: 7.2 cm ESV(MOD-sp4): 48.8 ml ESV(sp4-el): 48.4 ml EF(MOD-sp4): 43.6 % EF(sp4-el): 45.7 % SV(MOD-sp4): 37.7 ml SV(sp4-el): 40.8 ml LA A4 area: 20.8 cm2 LA dimension(2D): 3.6 cm RA A4 area: 16.4 cm2 TAPSE: 1.5 cm Time Measurements MV dec time: 0.30 sec Doppler Measurements & Calculations MV E max renny: 115.6 cm/sec Lat Peak E' Renny: 8.1 cm/sec Med Peak E' Renny: 6.0 cm/sec MV A max renny: 128.0 cm/sec E/E' lat: 14.3 E/E' med: 19.4 MV E/A: 0.90 MV V2 max: 170.4 cm/sec Ao V2 max: 181.5 cm/sec MV max P.7 mmHg MV dec slope: 390.8 cm/sec2 Ao max P.2 mmHg MV V2 mean: 115.1 cm/sec Ao V2 mean: 124.2 cm/sec MV mean P.8 mmHg Ao mean P.0 mmHg MV V2 VTI: 66.9 cm Ao V2 VTI: 42.4 cm AI max renny: 419.4 cm/sec PA V2 max: 93.4 cm/sec AI max P.4 mmHg PA V2 mean: 63.8 cm/sec AI dec slope: 337.5 cm/sec2 AI P1/2t: 364.0 msec ECHO/Echo Complete Interpretation Summary Mildly dilated left ventricle. Mild concentric left ventricular hypertrophy. The left ventricular ejection fraction is 60 %. Diastolic function is indeterminate. The left atrium is mildly enlarged. Mild tricuspid valve insufficiency. Moderately severe (3+) aortic valve insufficiency. Severely dilated aortic root. Ordering Physician: Dom Pepper Referring Physician: Rigo Nguyen Performed By: Candi Byrd RCS
--- NOTE | 2023-08-23 09:11 | ED.RN ---
HEPARIN DRIP RATE CONFIRMED WITH ROEL CHARGE NURSE ON PCU AT 0850. DRIP ADMINISTERING AT 14ML/HR. PT DENIES S/S INFILTRATION OR INFECTION AT IV SITES. PT A &OX3. PT STATES SHE WILL CALL SISTER AND UPDATE HER.
[2023-08-23 09:48] LABS: BNP,B-Type NATRIURETIC PEPTIDE 77.4 pg/mL (0-100)
[2023-08-23 10:50] LABS: Troponin-I HS 7 pg/mL (3.0-54.0)
[2023-08-23] MEDS: guaiFENesin/D-Methorphan TAB.SR.12H 2 TABLET PO ×2 (10:59→21:15)
[2023-08-23] MEDS: Metoprolol Tartrate 25 MG Tablet PO ×2 (10:59→21:16)
[2023-08-23] MEDS: Lisinopril 10 MG Tablet PO ×2 (10:59→21:15)
[2023-08-23 13:07] LABS: Troponin-I HS 6 pg/mL (3.0-54.0)
[2023-08-23] MEDS: 0.9% Saline Lock 10 ML Syringe IV ×2 (13:20→14:53)
[2023-08-23] MEDS: Ipratropium 0.5 MG/2.5 ML SOLUTION INHALATION ×2 (13:51→20:31)
[2023-08-23] MEDS: Acetaminophen 325 MG Tablet 650 MG PO ×2 (14:39→21:15)
[2023-08-23] MEDS: hydrALAZINE 20 MG/ML Vial 10 MG IV (14:52)
[2023-08-23 16:50] LABS: Troponin-I HS 6 pg/mL (3.0-54.0)
[2023-08-24] VITALS (11 sets, daily range): BP systolic 118–148; BP diastolic 44–63; PULSE 71–95; RESP 16–20; TEMP 36.6–36.8; O2SAT 92–98
[2023-08-24] MEDS: Acetaminophen 325 MG Tablet 650 MG PO (03:50)
[2023-08-24] MEDS: 0.9% Saline Lock 10 ML Syringe IV (06:47)
[2023-08-24] MEDS: Ipratropium 0.5 MG/2.5 ML SOLUTION INHALATION ×5 (07:35→23:06)
--- NOTE | 2023-08-24 07:54 | PN.HOSP_ITS ---
Reason for Visit Reason for Visit: Diagnoses Unspecified atrial fibrillation (08/23/23) Severe persistent asthma with (acute) exacerbation (08/23/23) Objective Data Objective Data Vital Signs: Vital Signs Temp Pulse Resp BP Pulse Ox O2 Del Method O2 Flow Rate 98.0 F 95 18 126/44 H 94 Nasal Cannula 1 08/24/23 02:15 08/24/23 07:36 08/24/23 07:36 08/24/23 02:15 08/24/23 07:36 08/24/23 07:36 08/24/23 07:36 Oxygen Flow Rate (L/min) 1 Oxygen Delivery Method Nasal Cannula Weight: 221 lb 9.033 oz Body Mass Index (BMI) 38.0 Intake & Output: Intake and Output for Last 24 Hours 08/22/23 08/23/23 08/24/23 23:59 23:59 23:59 Intake Total 1034.77 / 1534.77 1000 / 1000 Output Total 1000 / 1400 850 / 850 Balance 34.77 / 134.77 150 / 150 Lab / Micro Data 08/24/23 07:15 08/24/23 07:15 Labs: Laboratory Results - last 24 hr 08/23/23 03:45: Phosphorus 3.6, Magnesium 2.6, B-Natriuretic Peptide 77.4 08/23/23 03:54: PT 13.6, INR 1.0, APTT 29.2 08/23/23 10:22: Troponin I High Sens 7 08/23/23 12:23: Troponin I High Sens 6 08/23/23 16:22: Troponin I High Sens 6 Micro: Microbiology 08/23/23 11:00 Sputum, Expectorated/Coughed Gram Stain - Final 08/23/23 08:40 Mucosa - Nasopharyngeal Respiratory Panel (PCR) - Final 08/23/23 08:40 Mucosa - Nasopharyngeal Coronavirus COVID-19 PCR - Final 08/23/23 04:10 Nasal Secretion SARS-CoV-2 & FLU Antigen (Rapid) - Final Radiography Diagnostic Testing: Radiology Impression Chest CTA 08/23/23 07:46 IMPRESSION: No pulmonary embolus. Stable 4.8 cm aneurysm of the ascending aorta. No thoracic aortic dissection. No pulmonary infiltrates or pleural effusions. Electronically Signed: Heriberto Christensen MD at 9:02 EST , Physical Exam Narrative Seen and examined. Patient noted headache since last evening and Tylenol not helping her. Denies chronic headache including migraine or tension headache. It started after admission probably medication induced therefore Solu-Medrol or nebulization therefore Solu-Medrol changed to prednisone. Physical exam General: Alert, Oriented x3, Cooperative HEENT: Atraumatic, PERRLA, EOMI, Normocephalic Oral: No Gingival or Mucosal Lesions/ Ulcerations Neck: Supple, No JVD, Negative Carotid Bruits Lungs: Air entry diminished in bilateral lung bases. Wheezing and tachypnea has improved. Cardiovascular: Regular rate, Regular Rhythm, mild sinus tachycardia, No murmurs Abdomen: Bowel Sounds Present, Soft, Non Tender, Non-Distended : No renal angle tenderness. No suprapubic tenderness. Extremities: No edema, Capillary Refill Less than 3 Seconds Skin: No rashes, No breakdown Musculoskeletal: No Tenderness to Palpation of Joints or Extremities. ROM intact. Neurological: Cranial nerves II-XII grossly intact, DTR 2+/4. No acute focal neurological deficit. Psych/Mental Status: Anxious, ADHD. Assessment & Plan Assessment/Plan (1) Reactive airway disease: QUALIFIERS: Asthma complication type: with acute exacerbation Asthma persistence: persistent Asthma severity: severe Qualified Code(s): J45.51 - Severe persistent asthma with (acute) exacerbation (2) Atrial fibrillation with rapid ventricular response: PLAN: Plan 62-year-old female being admitted for progressive worsening shortness of breath/dyspnea, cough with sputum production 1. Subacute worsening shortness of breath/dyspnea, possible reactive airway disease, transient new onset A-fib with history of SVT: Patient is being admitted to PCU. It is unclear whether patient shortness of breath/dyspnea on exertion is a cardiac or pulmonary in origin. She might have airway reactive disease. BNP and 2D echo ordered. Respiratory panel and COVID PCR ordered. Sputum culture ordered. Patient is being managed on scheduled bronchodilator, IV Solu-Medrol, Mucinex, incentive spirometry and Pep. Chest x-ray individually does not show acute cardiopulmonary abnormality. CTPA did not show pulmonary embolism 08/24: Solu-Medrol changed to prednisone.On ipratropium nebulization. Advised to follow-up in pulmonary clinic for PFT and sleep study and evaluation. 2. History of SVT with transient new onset A-fib, resolved. Had transient A-fib probably due to DuoNeb and later which got converted with 20 mg IV Cardizem. Started on metoprolol 25 mg twice daily. 08/24: Patient remains in sinus rhythm. Heart rate is controlled. 3. Ascending thoracic aortic Aneurysm: CTA chest showed stable 0.8 cm, AA thoracic aneurysm but no thoracic aortic dissection. No pulmonary infiltrate. No effusions. (4) Essential hypertension, hypertensive urgency: Systolic blood pressure is still high. Started on HCTZ was Lisinopril. From previous admission in 2017 it seems patient was on metoprolol, hydrochlorothiazide, Lasix. (5) Hypothyroidism: Patient not taking Synthroid. TSH and free T4 tomorrow AM. (6) ADHD: Patient was on Adderall in the past (7) morbid strange obesity: BMI 38.0 kg/m?. 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 (8) DVT prophylaxis: SCDs, lovenox. Living will/advanced directive/end of life care: Patient does not have living will or advanced directive. She does not have designated power of corporate associate attorney for health office and states she lives with her dog/pets. After discussion of benefits/risks procedures involved with full code, DNR CC arrest and DNR CC, the patient opted for full code. Patient does want artificial life support including intubation, tube feed, ventilator and/chest compression, central venous catheter, vasopressor and DC shock if needed Total time spent in [id number] encounter in discussion of advanced directive 17 minutes. Microbiology Past 72 Hours 08/23/23 04:10 Nasal Secretion SARS-CoV-2 & FLU Antigen (Rapid) - Final Laboratory Results 08/23/23 03:45: WBC 6.8, RBC 4.16 L, Hgb 9.8 L, Hct 34.2 L, MCV 82.2, MCH 23.6 L , MCHC 28.7 L, RDW Std Deviation 49.7 H, RDW Coeff of Mango 16.8 H, Plt Count 392, MPV 9.2, Immature Gran % (Auto) 0.300, Neut % (Auto) 67.8, Lymph % (Auto) 18.9 L , [place] % (Auto) 8.4, Eos % (Auto) 3.7, Baso % (Auto) 0.9, Absolute Neuts (auto) 4.6, Absolute Lymphs (auto) 1.28, Nucleated RBC % 0, Sodium 140, Potassium 3.6, Chloride 107, Carbon Dioxide 25.0, Anion Gap 8, BUN 8, Creatinine 0.59, Estim Creat Clear Calc 87.56, Est GFR (MDRD) Af Amer 133, Est GFR (MDRD) Non-Af 110, BUN/Creatinine Ratio 13.5, Glucose 121 H, Lactic Acid 1.3, Calcium 8.9 08/23/23 03:54: D-Dimer Quant (PE/DVT) 1.08 H* Clinical Impression(s) from Imaging Studies Chest X-Ray 08/23/23 03:44 IMPRESSION: No radiographic evidence of acute cardiopulmonary disease. Charges/Coding Visit Charges Inpatient E&M: 68145 Subs Hosp L2
[2023-08-24 08:16] LABS: Absolute Lymphocyte Count 0.94 X10^3/uL (0.83-4.51); Hematocrit 33.8 % (37-47); Hemoglobin 9.7 g/dL (12.0-15.0); Lymphocyte # 0.94 X10^3/ul (0.83-4.51); Lymphocyte % 8.4 % (19-41); Mean Corp Hgb Conc 28.7 g/dL (32-36); Mean Corpuscular Hgb 23.5 pg (27.0-32.0); Mean Platelet Vol. 9.3 fl (6.2-12.0); Monocyte# 0.31 X10^3/uL; Monocyte% 2.8 % (0-10); NRBC Flagged by Analyzer 0 % (0-5); Neutrophil # 9.95 X10^3/uL (2.7-7.7); Neutrophil % 88.4 % (47-70); Platelet Count 466 K/mm3 (150-450); RBC Distribution Width CV 16.7 % (11.6-14.6); RBC Distribution Width SD 49.5 fl (35.1-43.9); Red Blood Count 4.12 M/mm3 (4.2-5.4); White Blood Count 11.2 K/mm3 (4.4-11.0)
[2023-08-24 09:05] LABS: Anion Gap 5 (5-15); BUN 13 mg/dL (7-18); BUN/Creat Ratio 19.8 RATIO (10-20); Calcium,Total 9.6 mg/dL (8.5-10.1); Chloride 108 mmol/L (98-107); Cholesterol 207 mg/dL (200); Creatinine, Serum 0.66 mg/dL (0.55-1.02); EST Glomerular Filtration Rate 98 mL/min (>60); Est Glom Filt Rate - Afr Amer 118 mL/min (>60); Estimated Creatinine Clearance 78.27 ml/min; Glucose 133 mg/dL (74-106); High Density Lipoprotein 60 mg/dL; Sodium Level 137 mmol/L (136-145); Thyroid Stim Hormone (TSH) 1.53 uIU/mL (0.358-3.74); Triglycerides 95 mg/dL; Very Low Density Lipoprotein 19 mg/dL (5-40)
[2023-08-24] MEDS: Lisinopril 10 MG Tablet PO ×2 (10:23→22:13)
[2023-08-24] MEDS: guaiFENesin/D-Methorphan TAB.SR.12H 2 TABLET PO ×2 (10:23→22:13)
[2023-08-24] MEDS: Ketorolac 15 MG/ML Vial IV (10:23)
[2023-08-24] MEDS: Metoprolol Tartrate 25 MG Tablet PO ×2 (10:23→22:14)
[2023-08-24] MEDS: Amox/Clavulanate 875 MG Tablet PO ×2 (10:23→22:13)
--- NOTE | 2023-08-24 10:35 | CASEMGMT ---
Addendum entered by Mike Seals 08/24/23 16:25: Call received back from Dr Marcano's office. He is unable to take pt back at this time as he is not accepting new pt's. Pt made aware and was provided w/local physician's directory. Pt made aware to let staff know if she needs assistance w/getting an appt to get established w/a new PCP. Original Note: RN?CM?[employer]?CM?to room to meet with patient for initial transition planning/care coordination?assessment.?RN?CM?introduced self and role at [facility].? Pt voices understanding and consents to?assessment?at this time.? Pt resting in bed in no distress at this time.? Pt is A/O at this time and answers all questions appropriately.?? Care providers, pharmacy, and demographics verified/updated at this time. PCP: Pt used to see Dr Marcano but states she has not been in to see him for a few years. She states she would like to return to him. Call to Dr Marcano's office who states they will send message to Dr Marcano to see if he will accept her again. Awaiting return call. Specialists: [facility] Type Copy Examiner in [place] Preferred Pharmacy: [facility] Retail @ discharge Insurance: TDX Prescription Benefit:?Yes Living Will/HPOA:?Pt does not currently have LW/HCPOA and declines info at this time.? Pt made aware that she can contact as an out-pt and make appt in the future if she decides she would like to talk with someone about this or would like to utilize [facility] social work for advanced directive completion.? Given Glass Products Inspector Rac card with information and contact number. Pt expresses understanding.? LNOK: . 7 children. Only contact listed is daughter, Janine, and pt states does not want anyone else listed at this time Living Arrangements: Lives w/ and son in 2-story home w/FFSU w/one step to enter. Pt states she is independent w/ADL's and IADL's. States most groceries are on-line/home delivered Transportation:?Family DME: ? Denies using any DME and denies needs.?No home O2. No preference of DME co, should she qualify for O2 @ discharge. Does not have a pulse ox. HHC/SNF: No hx of either. Discussed [facility] and pt agreeable to referral for new-onset A-Fib Pt wishes to return home and states has no concerns with going home at time of discharge.? CM?to follow for home oxygen needs and any further discharge planning/needs.? Pt voices no further concerns/needs at this time.? Advised pt to ask for?CM?if any further questions/concerns/needs arise.? Voices understanding. PLAN:??Home w/Pt Link Follow for anti-coag Karina DE JESUSN?RN?CM
[2023-08-24] MEDS: Ibuprofen 600 MG Tablet PO (22:13)
[2023-08-25] VITALS (12 sets, daily range): BP systolic 105–132; BP diastolic 46–60; PULSE 64–88; RESP 16–20; TEMP 36.1–37; O2SAT 96–98
[2023-08-25] MEDS: Ipratropium 0.5 MG/2.5 ML SOLUTION INHALATION ×5 (03:32→20:06)
[2023-08-25] MEDS: Acetaminophen 325 MG Tablet 650 MG PO ×2 (03:44→21:13)
[2023-08-25] MEDS: Ibuprofen 600 MG Tablet PO (04:31)
--- NOTE | 2023-08-25 05:12 | NURSING ---
Addendum entered by Jeannette Little Read 08/25/23 05:24: Pt. made a comment earlier on in the shift that she was upset about no longer receiving IV solumedrol- stated it just started working and the didn't even tell me they were taking me off of it. Original Note: pt. c/o difficulty breathing, feels like she needs to cough something up but can't; strong, barking cough- SpO2 @ 98% on room air, placed on 2L O2 for comfort; normal color to skin. LCTA. VS WNL. Pt. coughing into emesis bag but no mucus/ phlegm noted inside. Pt. provided with cool water and warm tea; breathing tx. given by resp. approx. 1.5 hrs. ago. No coughing heard when walking past room shortly after giving warm tea.
--- NOTE | 2023-08-25 05:33 | RAD_ITS ---
INDICATION: c/o SOB -- portable EXAMINATION/TECHNIQUE: X-RAY - XR Chest 1 View AP portable. 5:46 AM COMPARISON: 08/23/2023 FINDINGS: LINES/DEVICES: None. LUNGS: No consolidation. No pneumothorax. MEDIASTINUM: Unremarkable. CARDIAC SILHOUETTE: Not enlarged. BONES AND SOFT TISSUES: No acute abnormalities. RAD/Chest 1 View (Portable) IMPRESSION: No evidence of active intrathoracic disease. Electronically Signed: Anuradha Flores MD at 6:24 EST ,
[2023-08-25] MEDS: Ketorolac 15 MG/ML Vial IV (06:25)
[2023-08-25] MEDS: 0.9% Saline Lock 10 ML Syringe IV ×4 (06:25→23:48)
[2023-08-25] MEDS: Benzonatate 100 MG Capsule PO ×3 (06:26→23:58)
[2023-08-25] MEDS: BENZOCAINE/MENTHOL 1 LOZENGE MUCOUS MEM (06:26)
--- NOTE | 2023-08-25 07:00 | NURSING ---
Notified Dr. Jimenez of pt.'s change in status (SOB, coughing); ordered PRN tessalon pearles 100 mg 1 cap PO TID, cough drops po 1 drop q2h PRN, 1x dose of toradol 15 mg/1 ml, give 15 mg IV, and chest x-ray
[2023-08-25] MEDS: predniSONE 20 MG Tablet 40 MG PO (08:38)
[2023-08-25] MEDS: Metoprolol Tartrate 25 MG Tablet PO ×2 (09:02→21:11)
[2023-08-25] MEDS: Lisinopril 10 MG Tablet PO ×2 (09:02→21:11)
[2023-08-25] MEDS: Amox/Clavulanate 875 MG Tablet PO ×2 (09:02→21:12)
[2023-08-25] MEDS: guaiFENesin/D-Methorphan TAB.SR.12H 2 TABLET PO (09:02)
[2023-08-25] MEDS: guaiFENesin/Codeine 5 ML UDC 10 ML PO ×4 (12:41→21:11)
[2023-08-25] MEDS: MethylPREDNISolone 125 MG/2 ML Vial 60 MG IV ×3 (12:55→23:47)
--- NOTE | 2023-08-25 15:45 | CHAPLAIN ---
Type of Pastoral Visit _x__ Initial Visit ___ Follow-up Visit ___ On-call Visit ___ General Patient Visit ___ Spiritual Assessment ___ Family Conference ___ Bereavement ___ Rapid Response ___ Code Blue ___ Other (describe below) Pastoral Care Referral From _x__ Patient ___ Family ___ Nurse ___ Physician ___ Hygiene Teacher ___ R[employer] Press Operator ___ Other (describe below) Sacrament/Intervention _x__ Active listening ___ Anointing ___ Caodaism ___ Bereavement ___ Communion _x__ Courtney exploration ___ ___ Life review _x__ Prayer ___ Reconciliation ___ Sacrament of Sick _x__ Supportive presence ___ Wedding ___ Other (describe below) Pastoral Comments patient admits to concerns about her health and what is happening in her body; pt also reveals loneliness and dealing with family/people who do stupid; looking for the bright things in her life the patient has kittens and two grandchildren in [employer] school who are doing so well and learning good things in life and courtney; pt admits that this is about only thing that keeps her going; pt is open to presence and prayers for support;
--- NOTE | 2023-08-25 16:20 | PCM.PN.HOSP ---
Reason for Visit Reason for Visit: Diagnoses Unspecified atrial fibrillation (08/23/23) Severe persistent asthma with (acute) exacerbation (08/23/23) Objective Data Objective Data Vital Signs: Vital Signs Temp Pulse Resp BP Pulse Ox O2 Del Method O2 Flow Rate 97.2 F L 85 20 H 105/57 L 98 Nasal Cannula 2 08/25/23 10:00 08/25/23 13:28 08/25/23 13:28 08/25/23 10:00 08/25/23 10:00 08/25/23 10:00 08/25/23 10:03 Oxygen Flow Rate (L/min) 2 Oxygen Delivery Method Nasal Cannula Weight: 221 lb 9.033 oz Body Mass Index (BMI) 38.0 Intake & Output: Intake and Output for Last 24 Hours 08/23/23 08/24/23 08/25/23 23:59 23:59 23:59 Intake Total 1034.77 / 1534.77 1000 / 1000 1959 Output Total 1000 / 1400 850 / 850 Balance 34.77 / 134.77 150 / 150 1959 Lab / Micro Data 08/24/23 07:15 08/24/23 07:15 Micro: Microbiology 08/23/23 11:00 Sputum, Expectorated/Coughed Gram Stain - Final 08/23/23 11:00 Sputum, Expectorated/Coughed Respiratory Culture - Preliminary Staphylococcus aureus 08/23/23 08:40 Mucosa - Nasopharyngeal Respiratory Panel (PCR) - Final 08/23/23 08:40 Mucosa - Nasopharyngeal Coronavirus COVID-19 PCR - Final 08/23/23 04:10 Nasal Secretion SARS-CoV-2 & FLU Antigen (Rapid) - Final Radiography Diagnostic Testing: Radiology Impression Chest X-Ray 08/25/23 05:33 IMPRESSION: No evidence of active intrathoracic disease. Electronically Signed: Anuradha Flores MD at 6:24 EST , Physical Exam Narrative Seen and examined. Patient headache has improved and it seems probably from the cough. She still has wheezing and cough and he states that Solu-Medrol was helping therefore Solu-Medrol was restarted. Sputum culture shows Staph aureus. Patient on Augmentin. Vancomycin added Physical exam General: Alert, Oriented x3, Cooperative HEENT: Atraumatic, PERRLA, EOMI, Normocephalic Oral: No Gingival or Mucosal Lesions/ Ulcerations Neck: Supple, No JVD, Negative Carotid Bruits Lungs: Air entry diminished in bilateral lung bases. Bilateral wheezing, Intractable cough. Respiratory rate 20 mild tachypnea on 2 L of oxygen. Mild respiratory distress. Cardiovascular: Regular rate, Regular Rhythm, mild sinus tachycardia, diastolic murmur on right second ICS. Abdomen: Bowel Sounds Present, Soft, Non Tender, Non-Distended : No renal angle tenderness. No suprapubic tenderness. Extremities: No edema, Capillary Refill Less than 3 Seconds Skin: No rashes, No breakdown Musculoskeletal: No Tenderness to Palpation of Joints or Extremities. ROM intact. Neurological: Cranial nerves II-XII grossly intact, DTR 2+/4. No acute focal neurological deficit. Psych/Mental Status: Anxious, ADHD. Assessment & Plan Assessment/Plan (1) Reactive airway disease: QUALIFIERS: Asthma severity: severe Asthma persistence: persistent Asthma complication type: with acute exacerbation Qualified Code(s): J45.51 - Severe persistent asthma with (acute) exacerbation (2) Atrial fibrillation with rapid ventricular response: PLAN: Plan 62-year-old female being admitted for progressive worsening shortness of breath/dyspnea, cough with sputum production 1. Subacute worsening shortness of breath/dyspnea, possible reactive airway disease, transient new onset A-fib with history of SVT: Patient is being admitted to PCU. It is unclear whether patient shortness of breath/dyspnea on exertion is a cardiac or pulmonary in origin. She might have airway reactive disease. BNP and 2D echo ordered. Respiratory panel and COVID PCR ordered. Sputum culture ordered. Patient is being managed on scheduled bronchodilator, IV Solu-Medrol, Mucinex, incentive spirometry and Pep. Chest x-ray individually does not show acute cardiopulmonary abnormality. CTPA did not show pulmonary embolism 08/24: Solu-Medrol changed to prednisone.On ipratropium nebulization. Advised to follow-up in pulmonary clinic for PFT and sleep study and evaluation. 08/25: Patient was put back on Solu-Medrol. Repeat chest x-ray was done which does not show acute infiltrate but patient has cough with purulent sputum and sputum culture showing Staph aureus therefore vancomycin was started. Patient already on Augmentin. Respiratory panel and COVID PCR are negative. 2. History of SVT with transient new onset A-fib, resolved. Had transient A-fib probably due to DuoNeb and later which got converted with 20 mg IV Cardizem. Started on metoprolol 25 mg twice daily. 08/24: Patient remains in sinus rhythm. Heart rate is controlled. 3. Ascending thoracic aortic Aneurysm: CTA chest showed stable 0.8 cm, AA thoracic aneurysm but no thoracic aortic dissection. No pulmonary infiltrate. No effusions. (4) Essential hypertension, hypertensive urgency: Systolic blood pressure is still high. Started on HCTZ was Lisinopril. From previous admission in 2017 it seems patient was on metoprolol, hydrochlorothiazide, Lasix. (5) Hypothyroidism: Patient not taking Synthroid. TSH and free T4 tomorrow AM. (6) ADHD: Patient was on Adderall in the past (7) morbid strange obesity: BMI 38.0 kg/m?. [employer] consult weight loss and lifestyle changes encouraged. (8) DVT prophylaxis: SCDs, lovenox. Living will/advanced directive/end of life care: Patient does not have living will or advanced directive. She does not have designated power of securities attorney for health office and states she lives with her dog/pets. After discussion of benefits/risks procedures involved with full code, DNR CC arrest and DNR CC, the patient opted for full code. Patient does want artificial life support including intubation, tube feed, ventilator and/chest compression, central venous catheter, vasopressor and DC shock if needed Clinical Impression(s) from Imaging Studies Chest X-Ray 08/23/23 03:44 IMPRESSION: No radiographic evidence of acute cardiopulmonary disease. Electronically Signed: Richy Jeronimo MD at 4:55 EST , Chest CTA 08/23/23 07:46 IMPRESSION: No pulmonary embolus. Stable 4.8 cm aneurysm of the ascending aorta. No thoracic aortic dissection. No pulmonary infiltrates or pleural effusions. Electronically Signed: Heriberto Christensen MD at 9:02 EST , Echocardiogram 08/23/23 09:10 Interpretation Summary Mildly dilated left ventricle. Mild concentric left ventricular hypertrophy. The left ventricular ejection fraction is 60 %. Diastolic function is indeterminate. The left atrium is mildly enlarged. Mild tricuspid valve insufficiency. Moderately severe (3+) aortic valve insufficiency. Severely dilated aortic root. Chest X-Ray 08/25/23 05:33 IMPRESSION: No evidence of active intrathoracic disease. Charges/Coding Visit Charges Inpatient E&M: 96303 Subs Hosp L2
[2023-08-25] MEDS: Vancomycin HCl 1,500 MG in 0.9% Normal Saline (500mL Bag) 500 ML 250 MG IV (17:44)
--- NOTE | 2023-08-25 19:07 | PCM.RX.CS ---
Consult Antibiotic Management Pharmacy has been consulted to manage selected antiobiotic: Vancomycin Type of Intervention Type of Consult: New start Suspected Infection Suspected Infection: Pneumonia Labs Labs: Sodium 137 mmol/L (136-145) 08/24/23 07:15 Potassium 4.0 mmol/L (3.5-5.1) 08/24/23 07:15 Chloride 108 mmol/L (98-107) H 08/24/23 07:15 Carbon Dioxide 24.0 mmol/L (21.0-32.0) 08/24/23 07:15 Anion Gap 5 (5-15) 08/24/23 07:15 BUN 13 mg/dL (7-18) 08/24/23 07:15 Creatinine 0.66 mg/dL (0.55-1.02) 08/24/23 07:15 Est GFR (MDRD) Af Amer 118 mL/min (>60) 08/24/23 07:15 Est GFR (MDRD) Non-Af 98 mL/min (>60) 08/24/23 07:15 BUN/Creatinine Ratio 19.8 RATIO (10-20) 08/24/23 07:15 Glucose 133 mg/dL (74-106) H 08/24/23 07:15 Microbiology Microbiology: Microbiology 08/25/23 17:55 Urine, Random Legionella Antigen - Final 08/25/23 17:55 Urine, Random Streptococcus pneumoniae Antigen (M - Final 08/23/23 11:00 Sputum, Expectorated/Coughed Gram Stain - Final 08/23/23 11:00 Sputum, Expectorated/Coughed Respiratory Culture - Preliminary Staphylococcus aureus 08/23/23 08:40 Mucosa - Nasopharyngeal Respiratory Panel (PCR) - Final 08/23/23 08:40 Mucosa - Nasopharyngeal Coronavirus COVID-19 PCR - Final 08/23/23 04:10 Nasal Secretion SARS-CoV-2 & FLU Antigen (Rapid) - Final Goal Trough Goal Trough: 15-20 mcg/mL Pharmacy Plan for Drug Dosing Pharmacy Plan for Drug Dosing: NEW START IV VANCOMYCIN Consulting Physician: Dr. Pepper Indication: R/O pneumonia Goal Trough: 15-20 SrCr: 0.66 CrCl: 104 mL/min (using adjbw) Comments: Patient had initial dose of 1500mg IV x1 08/25/23 @7704 Vancomycin Dose: Based on CrCl using adjusted body weight, pt technically qualifies for Q8h dosing. However; due to her age and possible accumulation of vancomycin d/t habitus, am hesitant to start vancomycin at this frequency. Will Start patient on 2000mg IV Q12hr instead, and can adjust based on trough levels thereafter. Pending Level: 08/27/23 @4598 Pharmacy Service will continue to monitor and adjust dosing as required.
[2023-08-25 19:24] LABS: M R Staph aureus DNA By PCR Negative (Negative); Probe Check PASS; Specimen Processing Control PASS
[2023-08-25] MEDS: guaiFENesin/D-Methorphan TAB.SR.12H 1 TABLET PO (21:11)
[2023-08-26] VITALS (12 sets, daily range): BP systolic 118–156; BP diastolic 43–99; PULSE 63–96; RESP 14–20; TEMP 36.4–36.7; O2SAT 94–100
[2023-08-26] MEDS: guaiFENesin/Codeine 5 ML UDC 10 ML PO ×6 (02:21→21:42)
[2023-08-26] MEDS: 0.9% Saline Lock 10 ML Syringe IV (06:16)
[2023-08-26] MEDS: MethylPREDNISolone 125 MG/2 ML Vial 60 MG IV ×3 (06:16→18:42)
[2023-08-26] MEDS: Vancomycin HCl 2,000 MG in 0.9% Normal Saline (500mL Bag) 500 ML 250 MG IV (06:19)
[2023-08-26 06:49] LABS: Absolute Lymphocyte Count 0.68 X10^3/uL (0.83-4.51); Absolute Neutrophil Count 5.7 X10^3/uL (2.0-7.7); Hematocrit 31.8 % (37-47); Hemoglobin 9.2 g/dL (12.0-15.0); Lymphocyte # 0.68 X10^3/ul (0.83-4.51); Lymphocyte % 10.4 % (19-41); Mean Corp Hgb Conc 28.9 g/dL (32-36); Mean Corpuscular Hgb 23.6 pg (27.0-32.0); Mean Corpuscular Volume 81.5 fL (81-99); Mean Platelet Vol. 9.4 fl (6.2-12.0); Monocyte# 0.11 X10^3/uL; Monocyte% 1.7 % (0-10); NRBC Flagged by Analyzer 0 % (0-5); Neutrophil % 87.4 % (47-70); Platelet Count 413 K/mm3 (150-450); RBC Distribution Width CV 16.3 % (11.6-14.6); RBC Distribution Width SD 48.5 fl (35.1-43.9); White Blood Count 6.5 K/mm3 (4.4-11.0)
[2023-08-26] MEDS: Ipratropium 0.5 MG/2.5 ML SOLUTION INHALATION ×3 (07:16→22:00)
[2023-08-26 07:53] LABS: Anion Gap 4 (5-15); BUN 19 mg/dL (7-18); BUN/Creat Ratio 28.9 RATIO (10-20); Calcium,Total 8.9 mg/dL (8.5-10.1); Chloride 110 mmol/L (98-107); Creatinine, Serum 0.66 mg/dL (0.55-1.02); EST Glomerular Filtration Rate 97 mL/min (>60); Est Glom Filt Rate - Afr Amer 118 mL/min (>60); Estimated Creatinine Clearance 78.27 ml/min; Glucose 176 mg/dL (74-106); Sodium Level 138 mmol/L (136-145)
[2023-08-26] MEDS: Metoprolol Tartrate 25 MG Tablet PO ×2 (08:16→21:43)
[2023-08-26] MEDS: guaiFENesin/D-Methorphan TAB.SR.12H 1 TABLET PO ×2 (08:16→21:43)
[2023-08-26] MEDS: Amox/Clavulanate 875 MG Tablet PO ×2 (08:16→21:43)
[2023-08-26] MEDS: Lisinopril 10 MG Tablet PO ×2 (10:57→21:42)
--- NOTE | 2023-08-26 11:52 | CON.PCM.CA_ITS ---
Assessment & Plan Assessment/Plan (1) First detected episode of atrial fibrillation: PLAN: Presently normal sinus rhythm. Brief episode of A-fib in the setting of asthma exacerbation and pneumonia. Continue aspirin. Monitor. If any further episodes, then will recommend anticoagulation. Recommend 15-day event monitor upon discharge home. (2) Aortic regurgitation: PLAN: Moderate to severe aortic regurgitation noted on echocardiogram. Recommend cardiac MRI as an outpatient for further evaluation. (3) Thoracic aortic aneurysm: PLAN: 4.8 cm ascending thoracic aortic aneurysm. For optimal blood pressure control. Recommend establishing care with thoracic surgery for follow-up. (4) Reactive airway disease: QUALIFIERS: Asthma severity: severe Asthma persistence: persistent Asthma complication type: with acute exacerbation Qualified Co de(s): J45.51 - Severe persistent asthma with (acute) exacerbation PLAN: As per internal medicine. (5) Pneumonia: PLAN: As per internal medicine. (6) HTN (hypertension): QUALIFIERS: Hypertension type: essential hypertension Qualified Code(s): I10 - Essential (primary) hypertension PLAN: Beta-blockers and NIANA inhibitors. HPI Consult Data Date of Consult: 08/26/23 HPI Narrative Reason for Consultation: Atrial fibrillation HPI Narrative: This lady has history of thoracic aortic aneurysm and hypertension. Also history of asthma. She has been admitted to the hospital with asthma exacerbation with pneumonia. In the emergency room, she was noted to be in atrial fibrillation. Subsequently she converted on her own. Patient has had an echocardiogram done as part of her workup. It showed moderate to severe aortic regurgitation. Severely dilated ascending aorta was also reported. Normal LV systolic function with mildly dilated left ventricle. Patient denies any chest pain either at rest or with exertion. She does complain of shortness of breath with exertion. No orthopnea. No PND. No ankle edema. Denies any history of palpitations. Denies any bleeding disorders. [facility] Medical History (Updated 08/26/23 @ 11:[address] Melida Moore MD) Hypertension Other intervertebral disc degeneration, lumbar region Other intervertebral disc degeneration, lumbosacral region Radiculopathy, lumbar region Radiculopathy, lumbosacral region Home Medications NK 08/23/23 [History Last Taken Unknown] Allergy/AdvReac Type Severity Reaction Status Date / Time Influenza Virus Vaccines Allergy Mild PT UNABLE Verified 01/18/23 11:15 TO RESPOND-NEEDS F/U hydroxychloroquine Allergy Hives Verified 01/04/21 19:12 [From Plaquenil] [email or web address] [From Nubain] Allergy Itching Verified 01/04/21 19:12 Family History (Updated 08/23/23 @ 09:35 by Florence Purcell) Father Cancer Mother Cardiovascular disease Sister Diabetes Mother Hypertension Surgical History partial ovary removed Social History (Updated 08/23/23 @ 09:35 by Florence Purcell) household members: spouse and children Smoking Status: Current some day smoker tobacco type: e-cigarettes Physical Exam Narrative Comfortable. No apparent distress. Lying flat. Heart sounds 1 and 2 are noted. 3/6 systolic murmur and 2/6 diastolic murmur at base. Chest clear to auscultation. Alert oriented x 3. No ankle edema. Risk Stratification Risk Stratification Applicable: No Objective Data Vital Signs: Vital Signs Temp Pulse Resp BP Pulse Ox O2 Del Method O2 Flow Rate 97.6 F L 63 16 134/57 H 100 Room Air 2 08/26/23 10:54 08/26/23 10:54 08/26/23 10:54 08/26/23 10:54 08/26/23 10:54 08/26/23 10:54 08/26/23 07:16 Oxygen Flow Rate (L/min) 2 Oxygen Delivery Method Room Air Weight: 221 lb 9.033 oz Body Mass Index (BMI) 38.0 Intake & Output: Intake and Output for Last 24 Hours 08/24/23 08/25/23 08/26/23 23:59 23:59 23:59 Intake Total 1000 / 1000 3210 / 3210 Output Total 850 / 850 Balance 150 / 150 3210 / 3210 Lab / Micro Data 08/26/23 06:08 08/26/23 06:08 Labs: Laboratory Results - last 24 hr 08/25/23 17:55: MRSA (PCR) Negative 08/26/23 06:08: WBC 6.5, RBC 3.90 L, Hgb 9.2 L, Hct 31.8 L, MCV 81.5, MCH 23.6 L , MCHC 28.9 L, RDW Std Deviation 48.5 H, RDW Coeff of Mango 16.3 H, Plt Count 413, MPV 9.4, Immature Gran % (Auto) 0.500, Neut % (Auto) 87.4 H, Lymph % (Auto) 10.4 L, Josephine % (Auto) 1.7, Eos % (Auto) 0.0, Baso % (Auto) 0.0, Absolute Neuts (auto) 5.7, Absolute Lymphs (auto) 0.68 L, Nucleated RBC % 0, Sodium 138, Potassium 4.0, Chloride 110 H, Carbon Dioxide 24.0, Anion Gap 4 L, BUN 19 H, Creatinine 0.66, Estim Creat Clear Calc 78.27, Est GFR (MDRD) Af Amer 118, Est GFR (MDRD) Non-Af 97, BUN/Creatinine Ratio 28.9 H, Glucose 176 H, Calcium 8.9 Micro: Microbiology 08/23/23 11:00 Sputum, Expectorated/Coughed Gram Stain - Final 08/23/23 11:00 Sputum, Expectorated/Coughed Respiratory Culture - Preliminary Staphylococcus aureus 08/25/23 17:55 Urine, Random Legionella Antigen - Final 08/25/23 17:55 Urine, Random Streptococcus pneumoniae Antigen (M - Final Rhythm Strip Rhythm Strip: Sinus Rhythm Cardiology Labs/Tests 08/26/23 06:08: WBC 6.5, RBC 3.90 L, Hgb 9.2 L, Hct 31.8 L, MCV 81.5, MCH 23.6 L , MCHC 28.9 L, Plt Count 413, MPV 9.4, Immature Gran % (Auto) 0.500, Neut % (Auto) 87.4 H, Lymph % (Auto) 10.4 L, Josephine % (Auto) 1.7, Eos % (Auto) 0.0, Baso % (Auto) 0.0, Absolute Neuts (auto) 5.7, Nucleated RBC % 0, Sodium 138, Pota ssium 4.0, Chloride 110 H, Carbon Dioxide 24.0, Anion Gap 4 L, BUN 19 H, Creatinine 0.66, Est GFR (MDRD) Af Amer 118, Est GFR (MDRD) Non-Af 97, BUN/Creatinine Ratio 28.9 H, Glucose 176 H, Calcium 8.9 Rhythm: EKG: First ECG showed atrial fibrillation with rapid ventricular response. Subsequent ECG normal sinus rhythm. ECHO: Stress Test: Cardiac Cath: PCI: CT Surgery: Holter monitor: EPS: PPM: CXR: Chest CT Scan:
[2023-08-26] MEDS: Benzonatate 100 MG Capsule PO (14:08)
--- NOTE | 2023-08-26 14:29 | PN.HOSP_ITS ---
Reason for Visit Reason for Visit: Diagnoses Essential (primary) hypertension (08/23/23) Nonrheumatic aortic (valve) insufficiency (08/23/23) Unspecified atrial fibrillation (08/23/23) Thoracic aortic aneurysm, without rupture, unspecified (08/23/23) Pneumonia, unspecified organism (08/23/23) Severe persistent asthma with (acute) exacerbation (08/23/23) Objective Data Objective Data Vital Signs: Vital Signs Temp Pulse Resp BP Pulse Ox O2 Del Method O2 Flow Rate 97.6 F L 79 20 H 134/57 H 100 Room Air 2 08/26/23 10:54 08/26/23 13:19 08/26/23 13:19 08/26/23 10:54 08/26/23 10:54 08/26/23 10:54 08/26/23 07:16 Oxygen Flow Rate (L/min) 2 Oxygen Delivery Method Room Air Weight: 221 lb 9.033 oz Body Mass Index (BMI) 38.0 Intake & Output: Intake and Output for Last 24 Hours 08/24/23 08/25/23 08/26/23 23:59 23:59 23:59 Intake Total 1000 / 1000 3210 / 3210 1340 / 1340 Output Total 850 / 850 Balance 150 / 150 3210 / 3210 1340 / 1340 Lab / Micro Data 08/26/23 06:08 08/26/23 06:08 Labs: Laboratory Results - last 24 hr 08/25/23 17:55: MRSA (PCR) Negative 08/26/23 06:08: WBC 6.5, RBC 3.90 L, Hgb 9.2 L, Hct 31.8 L, MCV 81.5, MCH 23.6 L , MCHC 28.9 L, RDW Std Deviation 48.5 H, RDW Coeff of Mango 16.3 H, Plt Count 413, MPV 9.4, Immature Gran % (Auto) 0.500, Neut % (Auto) 87.4 H, Lymph % (Auto) 10.4 L, Wilkes % (Auto) 1.7, Eos % (Auto) 0.0, Baso % (Auto) 0.0, Absolute Neuts (auto) 5.7, Absolute Lymphs (auto) 0.68 L, Nucleated RBC % 0, Sodium 138, Potassium 4.0, Chloride 110 H, Carbon Dioxide 24.0, Anion Gap 4 L, BUN 19 H, Creatinine 0.66, Estim Creat Clear Calc 78.27, Est GFR (MDRD) Af Amer 118, Est GFR (MDRD) Non-Af 97, BUN/Creatinine Ratio 28.9 H, Glucose 176 H, Calcium 8.9 Micro: Microbiology 08/23/23 03:45 Blood Culture (Wb) - Anticubital Left Blood Culture - Preliminary No growth in 48 hours. 08/23/23 11:00 Sputum, Expectorated/Coughed Gram Stain - Final 08/23/23 11:00 Sputum, Expectorated/Coughed Respiratory Culture - Final Staphylococcus aureus Streptococcus group C 08/25/23 17:55 Urine, Random Legionella Antigen - Final 08/25/23 17:55 Urine, Random Streptococcus pneumoniae Antigen (M - Final 08/23/23 08:40 Mucosa - Nasopharyngeal Respiratory Panel (PCR) - Final 08/23/23 08:40 Mucosa - Nasopharyngeal Coronavirus COVID-19 PCR - Final 08/23/23 04:10 Nasal Secretion SARS-CoV-2 & FLU Antigen (Rapid) - Final Rhythm Strip Rhythm Strip: Sinus Rhythm Physical Exam Narrative Seen and examined. Patient headache has improved and it seems probably from the cough. She still has wheezing and cough and he states that Solu-Medrol was helping therefore Solu-Medrol was restarted. Sputum culture shows Staph aureus. Patient on Augmentin. Sputum culture shows MSSA. Will discontinue IV vancomycin. Physical exam General: Alert, Oriented x3, Cooperative HEENT: Atraumatic, PERRLA, EOMI, Normocephalic Oral: No Gingival or Mucosal Lesions/ Ulcerations Neck: Supple, No JVD, Negative Carotid Bruits Lungs: Air entry diminished in bilateral lung bases. Cough and wheezing is better. Respiratory rate 20 mild tachypnea. No hypoxia. Mild respiratory distress resolved. Cardiovascular: Regular rate, sinus rhythm, diastolic murmur on right second ICS. Abdomen: Bowel Sounds Present, Soft, Non Tender, Non-Distended : No renal angle tenderness. No suprapubic tenderness. Extremities: No edema, Capillary Refill Less than 3 Seconds Skin: No rashes, No breakdown Musculoskeletal: No Tenderness to Palpation of Joints or Extremities. ROM intact. Neurological: Cranial nerves II-XII grossly intact, DTR 2+/4. No acute focal neurological deficit. Psych/Mental Status: Anxious, ADHD. Assessment & Plan Assessment/Plan (1) Reactive airway disease: QUALIFIERS: Asthma severity: severe Asthma persistence: persistent Asthma complication type: with acute exacerbation Qualified Code(s): J45.51 - Severe persistent asthma with (acute) exacerbation (2) Atrial fibrillation with rapid ventricular response: PLAN: Plan 62-year-old female being admitted for progressive worsening shortness of breath/dyspnea, cough with sputum production 1. Subacute worsening shortness of breath/dyspnea, possible reactive airway disease, transient new onset A-fib with history of SVT: Patient is being admitted to PCU. It is unclear whether patient shortness of breath/dyspnea on exertion is a cardiac or pulmonary in origin. She might have airway reactive disease. BNP and 2D echo ordered. Respiratory panel and COVID PCR ordered. Sputum culture ordered. Patient is being managed on scheduled bronchodilator, IV Solu-Medrol, Mucinex, incentive spirometry and Pep. Chest x-ray individually does not show acute cardiopulmonary abnormality. CTPA did not show pulmonary embolism 08/24: Solu-Medrol changed to prednisone.On ipratropium nebulization. Advised to follow-up in pulmonary clinic for PFT and sleep study and evaluation. 08/25: Patient was put back on Solu-Medrol. Repeat chest x-ray was done which does not show acute infiltrate but patient has cough with purulent sputum and sputum culture showing Staph aureus therefore vancomycin was started. Patient already on Augmentin. Respiratory panel and COVID PCR are negative. 08/26: Sputum culture growing 1+ MSSA and strep group C 2+. Augmentin covers MSSA and strep therefore discontinue IV vancomycin discussed with ID. Chest x- ray does not show pneumonia or patient might have acute bronchitis due to MSSA and strep group C. Hypoxia resolved. 2. History of SVT with transient new onset A-fib, resolved. Had transient A-fib probably due to DuoNeb and later which got converted with 20 mg IV Cardizem. Started on metoprolol 25 mg twice daily. 08/24: Patient remains in sinus rhythm. Heart rate is controlled. 08/26: [employer] was consulted as per patient request. Recommended 15 days event monitor upon discharge. Moderate to severe AR on echo in commended cardiac MRI as an outpatient. Continue beta-adam and NAINA inhibitor. 3. Ascending thoracic aortic Aneurysm: CTA chest showed stable 4.8 cm, AA thoracic aneurysm but no thoracic aortic dissection. No pulmonary infiltrate. No effusions. [employer] recommended establishing care with thoracic surgery for follow-up as an outpatient for 4.8 cm ascending thoracic aortic aneurysm is stable. (4) Essential hypertension, hypertensive urgency: Systolic blood pressure is still high. Started on HCTZ was Lisinopril. From previous admission in 2017 it seems patient was on metoprolol, hydrochlorothiazide, Lasix. (5) Hypothyroidism: Patient not taking Synthroid. TSH and free T4 tomorrow AM. (6) ADHD: Patient was on Adderall in the past (7) morbid strange obesity: BMI 38.0 kg/m?. [employer] consult weight loss and lifestyle changes encouraged. (8) DVT prophylaxis: SCDs, lovenox. Living will/advanced directive/end of life care: Patient does not have living will or advanced directive. She does not have designated power of disability attorney for health office and states she lives with her dog/pets. After discussion of benefits/risks procedures involved with full code, DNR CC arrest and DNR CC, the patient opted for full code. Patient does want artificial life support including intubation, tube feed, ventilator and/chest compression, central venous catheter, vasopressor and DC shock if needed Clinical Impression(s) from Imaging Studies Chest X-Ray 08/23/23 03:44 IMPRESSION: No radiographic evidence of acute cardiopulmonary disease. Electronically Signed: Richy Jeronimo MD at 4:55 EST , Chest CTA 08/23/23 07:46 IMPRESSION: No pulmonary embolus. Stable 4.8 cm aneurysm of the ascending aorta. No thoracic aortic dissection. No pulmonary infiltrates or pleural effusions. Electronically Signed: Heriberto Christensen MD at 9:02 EST , Echocardiogram 08/23/23 09:10 Interpretation Summary Mildly dilated left ventricle. Mild concentric left ventricular hypertrophy. The left ventricular ejection fraction is 60 %. Diastolic function is indeterminate. The left atrium is mildly enlarged. Mild tricuspid valve insufficiency. Moderately severe (3+) aortic valve insufficiency. Severely dilated aortic root. Chest X-Ray 08/25/23 05:33 IMPRESSION: No evidence of active intrathoracic disease. Charges/Coding Visit Charges Inpatient E&M: 21074 Subs Hosp L2
[2023-08-26] MEDS: Benzonatate 100 MG Capsule 200 MG PO (18:41)
[2023-08-27] VITALS (8 sets, daily range): BP systolic 139–153; BP diastolic 59–78; PULSE 65–81; RESP 16–20; TEMP 36.6–36.7; O2SAT 94–98
[2023-08-27] MEDS: 0.9% Saline Lock 10 ML Syringe IV ×4 (00:01→12:12)
[2023-08-27] MEDS: guaiFENesin/Codeine 5 ML UDC 10 ML PO ×3 (02:05→10:24)
[2023-08-27] MEDS: MethylPREDNISolone 125 MG/2 ML Vial 60 MG IV ×3 (05:30→12:12)
[2023-08-27 06:38] LABS: Absolute Lymphocyte Count 0.99 X10^3/uL (0.83-4.51); Hematocrit 32.3 % (37-47); Hemoglobin 9.3 g/dL (12.0-15.0); Lymphocyte # 0.99 X10^3/ul (0.83-4.51); Lymphocyte % 12.1 % (19-41); Mean Corp Hgb Conc 28.8 g/dL (32-36); Mean Corpuscular Hgb 23.3 pg (27.0-32.0); Mean Platelet Vol. 9.6 fl (6.2-12.0); Monocyte# 0.17 X10^3/uL; Monocyte% 2.1 % (0-10); NRBC Flagged by Analyzer 0 % (0-5); Neutrophil # 6.99 X10^3/uL (2.7-7.7); Neutrophil % 85.2 % (47-70); Platelet Count 428 K/mm3 (150-450); RBC Distribution Width CV 16.4 % (11.6-14.6); RBC Distribution Width SD 48.3 fl (35.1-43.9); Red Blood Count 3.99 M/mm3 (4.2-5.4); White Blood Count 8.2 K/mm3 (4.4-11.0)
[2023-08-27 07:19] LABS: Anion Gap 3 (5-15); BUN 17 mg/dL (7-18); BUN/Creat Ratio 27.8 RATIO (10-20); Calcium,Total 8.8 mg/dL (8.5-10.1); Chloride 111 mmol/L (98-107); Creatinine, Serum 0.61 mg/dL (0.55-1.02); EST Glomerular Filtration Rate 106 mL/min (>60); Est Glom Filt Rate - Afr Amer 128 mL/min (>60); Estimated Creatinine Clearance 84.69 ml/min; Glucose 143 mg/dL (74-106); Potassium 3.8 mmol/L (3.5-5.1); Sodium Level 140 mmol/L (136-145)
--- NOTE | 2023-08-27 09:34 | DCINST_ITS ---
Discharge Instructions Diet Discharge Diet: 2000 mg Sodium Diet Activity Discharge Activity: Return to Normal Activity Weight Bearing Status: Weight bearing as tolerated Dressing / Incision Call your doctor if you observe: Fever of 101 or Higher, Coldness, Increased Pain, Numbness or Tingling, Change in Color, Inability to urinate, Inability to have a bowel movement, Using more than 1 pad per hour, Shortness of breath, Dizziness, Fainting spells, Swelling in the ankles, Chest pain, Prolonged hiccupping, Increased palpitations (irregular heartbeat) and Calf discomfort Follow Up Care When: IN 2 WEEKS Test Results: Test results from this visit will be discussed in further detail at your follow- up appointment, if applicable. Discharge Plan Admission Admit Date/Time: 08/23/23 07:57 Primary Reason for Your Visit: PNEUMONIA, AI Attending Provider: Dom Pepper Primary Care Provider: Care PhysicianMisty Primary Consulting Providers: Melida Moore Instructions Additional Instructions / Restrictions: Advised to follow-up with the thoracic surgery, referral by PCP to follow-up for thoracic ascending aortic aneurysm Discharge Orders/Prescriptions Prescriptions: New benzonatate 100 mg Capsule 200 mg PO TID PRN PRN (Reason: COUGH) Qty: 30 0RF amoxicillin-pot clavulanate 875-125 mg Tablet 1 tab PO BID 5 Days Qty: 10 0RF lisinopril 10 mg Tablet 10 mg PO BID 30 Days Qty: 60 2RF Rx Instructions: Hold for SBP less than 120 mmHg Mucinex DM 30-600 mg Tablet Extended Release 12 Hr 1 tab PO BID 7 Days Qty: 14 0RF metoprolol tartrate 25 mg Tablet 25 mg PO BID 30 Days Qty: 60 2RF Rx Instructions: Hold for heart less than 50 or systolic blood pressure less than 100 mmHg. Atrovent HFA 17 mcg/actuation HFA aerosol inhaler 2 puff inhalation Q6H PRN (Reason: shortness of breath or wheezing) 30 Days Qty: 12.9 0RF Rx Instructions: administer with spacer budesonide-formoterol [Symbicort] 160-4.5 mcg/actuation HFA aerosol inhaler 2 puff inhalation BID Qty: 10.2 0RF prednisone 10 mg tablet 10 mg PO DAILY Qty: 30 0RF Rx Instructions: 40 mg for 3 days 30 mg for 3 days, 20 mg for 3 days,and 10 mg for 3 days codeine-guaifenesin [Guaifenesin AC] 10-100 mg/5 mL liquid 5 ml PO Q6H PRN (Reason: SEVERE COUGH) 7 Days Qty: 120 0RF No Action NK Referrals / Follow Up: Melida Moore MD [Med Staff - Active Staff] - Within 1 Month Miguelito Gamez MD [Med Staff - Active Staff] - Within 2 Weeks (FOR Reactive airway disease r/o asthma, pneumonia) Rigo Marcano MD [Non-Staff] - Care Physician,No Primary [Primary Care Provider] - Disposition Disposition (needs filled in before D/C Order can be placed): Home, Self Care
--- NOTE | 2023-08-27 09:46 | PCM.DC.SUM ---
Providers Date of Admission: 08/23/23 Date of Discharge: 08/27/23 Primary Care Physician: Misty Primary Care Phys Consultations 08/26/23 09:05 Consult: Cardiology Routine Consulting Provider: Melida Moore Reason for Consult: New onset HF, Afib, 3+ AI, severely dilated aortic root EMERGENT Consult: No MD Notified: Yes Date Notified: 08/26/23 Time Notified: 09:06 Method of Notification: Text Reason For Visit: NEW ONSET AFIB WITH DYSPNEA Diagnosis Discharge Diagnosis (1) Reactive airway disease: Status: Acute Code(s): J45.909 - Unspecified asthma, uncomplicated Qualifiers: Asthma complication type: with acute exacerbation Asthma persistence: persistent Asthma severity: severe Qualified Code(s): J45.51 - Severe persistent asthma with (acute) exacerbation (2) Atrial fibrillation with rapid ventricular response: Status: Acute Code(s): I48.91 - Unspecified atrial fibrillation Plan 62-year-old female being admitted for progressive worsening shortness of breath/dyspnea, cough with sputum production 1. Subacute worsening shortness of breath/dyspnea, possible reactive airway disease, transient new onset A-fib with history of SVT: Patient is being admitted to PCU. It is unclear whether patient shortness of breath/dyspnea on exertion is a cardiac or pulmonary in origin. She might have airway reactive disease. BNP and 2D echo ordered. Respiratory panel and COVID PCR ordered. Sputum culture ordered. Patient is being managed on scheduled bronchodilator, IV Solu-Medrol, Mucinex, incentive spirometry and Pep. Chest x-ray individually does not show acute cardiopulmonary abnormality. CTPA did not show pulmonary embolism 08/24: Solu-Medrol changed to prednisone.On ipratropium nebulization. Advised to follow-up in pulmonary clinic for PFT and sleep study and evaluation. 08/25: Patient was put back on Solu-Medrol. Repeat chest x-ray was done which does not show acute infiltrate but patient has cough with purulent sputum and sputum culture showing Staph aureus therefore vancomycin was started. Patient already on Augmentin. Respiratory panel and COVID PCR are negative. 08/26: Sputum culture growing 1+ MSSA and strep group C 2+. Augmentin covers MSSA and strep therefore discontinue IV vancomycin discussed with ID. Chest x-ray does not show pneumonia or patient might have acute bronchitis due to MSSA and strep group C. Hypoxia resolved. 08/27: Prescription for Augmentin given to complete total of 8 days of antibiotic. Patient also given a prescription for Atrovent inhaler, Symbicort, tapering dose of prednisone, Mucinex DM, Tessalon Perles and codeine guaifenesin cough syrup. OARSS checked, Narc score is 0. Patient advised to continue incentive spirometry and PEP for at least 1 week. Advised follow-up in pulmonary clinic in 1 month. 2. History of SVT with transient new onset A-fib, resolved. Had transient A-fib probably due to DuoNeb and later which got converted with 20 mg IV Cardizem. Started on metoprolol 25 mg twice daily. 08/24: Patient remains in sinus rhythm. Heart rate is controlled. 08/26: Event Planning Manager was consulted as per patient request. Recommended 15 days event monitor upon discharge. Moderate to severe AR on echo in commended cardiac MRI as an outpatient. Continue beta-adam and NAINA inhibitor. 08/27: Prescription given for metoprolol and lisinopril. Patient is stated she is to follow-up with airport ramp attendant in [place] [facility] advised to follow-up and if not she can follow with Dr. Moore. 3. Ascending thoracic aortic Aneurysm: CTA chest showed stable 4.8 cm, AA thoracic aneurysm but no thoracic aortic dissection. No pulmonary infiltrate. No effusions. Event Planning Manager recommended establishing care with thoracic surgery for follow-up as an outpatient for 4.8 cm ascending thoracic aortic aneurysm is stable. 08/27: Advised follow-up thoracic surgery to be referred by PCP. (4) Essential hypertension, hypertensive urgency: Systolic blood pressure is still high. Started on HCTZ was Lisinopril. From previous admission in 2017 it seems patient was on metoprolol, hydrochlorothiazide, Lasix. (5) Hypothyroidism: Patient not taking Synthroid. TSH in normal range. (6) ADHD: Patient was on Adderall in the past (7) morbid strange obesity: BMI 38.0 kg/m?. Pump Machine Operator consult weight loss and lifestyle changes encouraged. (8) DVT prophylaxis: SCDs, lovenox. Discharge medication reconciliation done. Discharge follow-up instructions completed. Discharge process discussed with the patient and all questions were answered to patient's satisfaction. Follow with PCP in 1 to 2 weeks Total time spent, exact 35 minutes on discharge meds reconciliation, examination, coordination of care with nurses and ancillary staff, review of imaging and blood test and discussion with the patient on follow-up instructions. Living will/advanced directive/end of life care: Patient does not have living will or advanced directive. She does not have designated power of consumer attorney for health office and states she lives with her dog/pets. After discussion of benefits/risks procedures involved with full code, DNR CC arrest and DNR CC, the patient opted for full code. Patient does want artificial life support including intubation, tube feed, ventilator and/chest compression, central venous catheter, vasopressor and DC shock if needed Clinical Impression(s) from Imaging Studies Chest X-Ray 08/23/23 03:44 IMPRESSION: No radiographic evidence of acute cardiopulmonary disease. Electronically Signed: Richy Jeronimo MD at 4:55 EST , Chest CTA 08/23/23 07:46 IMPRESSION: No pulmonary embolus. Stable 4.8 cm aneurysm of the ascending aorta. No thoracic aortic dissection. No pulmonary infiltrates or pleural effusions. Electronically Signed: Heriberto Christensen MD at 9:02 EST , Echocardiogram 08/23/23 09:10 Interpretation Summary Mildly dilated left ventricle. Mild concentric left ventricular hypertrophy. The left ventricular ejection fraction is 60 %. Diastolic function is indeterminate. The left atrium is mildly enlarged. Mild tricuspid valve insufficiency. Moderately severe (3+) aortic valve insufficiency. Severely dilated aortic root. Chest X-Ray 08/25/23 05:33 IMPRESSION: No evidence of active intrathoracic disease. Medications at Discharge Home Medications amoxicillin 875 mg-potassium clavulanate 125 mg tablet 1 tab PO BID 5 days #10 tabs 08/27/23 benzonatate 100 mg capsule 200 mg (2 x 100 mg) PO TID PRN PRN COUGH #30 caps 08/27/23 budesonide-formoterol HFA 160 mcg-4.5 mcg/actuation aerosol inhaler (Symbicort) 2 puff inhalation BID #10.2 grams 08/27/23 codeine 10 mg-guaifenesin 100 mg/5 mL oral liquid (Guaifenesin AC) 5 ml PO Q6H PRN SEVERE COUGH 7 days #120 mL 08/27/23 dextromethorphan-guaifenesin 30 mg-600 mg tablet extended todfxtp15 hr (Mucinex DM) 1 tab PO BID 7 days #14 tabs 08/27/23 furosemide 40 mg tablet 40 mg PO DAILY PRN leg swelling/weight gain #30 tabs 08/27/23 ipratropium bromide 17 mcg/actuation HFA aerosol inhaler (Atrovent HFA) 2 puff inhalation Q6H PRN shortness of breath or wheezing 30 days #12.9 grams 08/27/23 lisinopril 10 mg tablet 10 mg PO BID 30 days #60 tabs 08/27/23 metoprolol tartrate 25 mg tablet 25 mg PO BID 30 days #60 tabs 08/27/23 prednisone 10 mg tablet 10 mg PO DAILY #30 tabs 08/27/23 Physical Exam Narrative Seen and examined. Patient headache resolved. Cough is better controlled on 3 medications. Improvement in shortness of breath and wheezing. Augmentin continued. Sputum culture shows Staph aureus. Patient on Augmentin. Sputum culture shows MSSA. Physical exam General: Alert, Oriented x3, Cooperative HEENT: Atraumatic, PERRLA, EOMI, Normocephalic Oral: No Gingival or Mucosal Lesions/ Ulcerations Neck: Supple, No JVD, Negative Carotid Bruits Lungs: Air entry diminished in bilateral lung bases. Cough and wheezing has improved. Tachypnea resolved. Patient not in respiratory distress. No hypoxia. Cardiovascular: Regular rate, sinus rhythm, diastolic murmur on right second ICS. Abdomen: Bowel Sounds Present, Soft, Non Tender, Non-Distended : No renal angle tenderness. No suprapubic tenderness. Extremities: No edema, Capillary Refill Less than 3 Seconds Skin: No rashes, No breakdown Musculoskeletal: No Tenderness to Palpation of Joints or Extremities. ROM intact. Neurological: Cranial nerves II-XII grossly intact, DTR 2+/4. No acute focal neurological deficit. Psych/Mental Status: Anxious, ADHD. Weight / BMI Weight Weight: 221 lb 9.033 oz Body Mass Index (BMI) 38.0 ABG / Lab / Microbiology Data 08/27/23 06:00 08/27/23 06:00 Laboratory: Laboratory Results - last 24 hr 08/27/23 06:00: WBC 8.2, RBC 3.99 L, Hgb 9.3 L, Hct 32.3 L, MCV 81.0, MCH 23.3 L, MCHC 28.8 L, RDW Std Deviation 48.3 H, RDW Coeff of Mango 16.4 H, Plt Count 428, MPV 9.6, Immature Gran % (Auto) 0.600, Neut % (Auto) 85.2 H, Lymph % (Auto) 12.1 L, Brantley % (Auto) 2.1, Eos % (Auto) 0.0, Baso % (Auto) 0.0, Absolute Neuts (auto) 7.0, Absolute Lymphs (auto) 0.99, Nucleated RBC % 0, Sodium 140, Potassium 3.8, Chloride 111 H, Carbon Dioxide 26.0, Anion Gap 3 L, BUN 17, Creatinine 0.61, Estim Creat Clear Calc 84.69, Est GFR (MDRD) Af Amer 128, Est GFR (MDRD) Non-Af 106, BUN/Creatinine Ratio 27.8 H, Glucose 143 H, Calcium 8.8 Microbiology: Microbiology 08/23/23 03:45 Blood Culture (Wb) - Anticubital Left Blood Culture - Preliminary No growth in 48 hours. 08/23/23 11:00 Sputum, Expectorated/Coughed Gram Stain - Final 08/23/23 11:00 Sputum, Expectorated/Coughed Respiratory Culture - Final Staphylococcus aureus Streptococcus group C 08/25/23 17:55 Urine, Random Legionella Antigen - Final 08/25/23 17:55 Urine, Random Streptococcus pneumoniae Antigen (M - Final 08/23/23 08:40 Mucosa - Nasopharyngeal Respiratory Panel (PCR) - Final 08/23/23 08:40 Mucosa - Nasopharyngeal Coronavirus COVID-19 PCR - Final 08/23/23 04:10 Nasal Secretion SARS-CoV-2 & FLU Antigen (Rapid) - Final D/C Instructions Discharge Diet: 2000 mg Sodium Diet Weight Bearing Status: Weight bearing as tolerated Call your doctor if you observe: Fever of 101 or Higher, Coldness, Increased Pain, Numbness or Tingling, Change in Color, Inability to urinate, Inability to have a bowel movement, Using more than 1 pad per hour, Shortness of breath, Dizziness, Fainting spells, Swelling in the ankles, Chest pain, Prolonged hiccupping, Increased palpitations (irregular heartbeat) and Calf discomfort When: IN 2 WEEKS Meaningful Use Info Meaningful Use Diagnoses (Choose all that apply): None applicable Discharge Plan Admission Admit Date/Time: 08/23/23 07:57 Primary Reason for Your Visit: PNEUMONIA, AI Attending Provider: Dom Pepper Primary Care Provider: Care Physician,Misty Primary Consulting Providers: Melida Moore Instructions Additional Instructions / Restrictions: Advised to follow-up with the thoracic surgery, referral by PCP to follow-up for thoracic ascending aortic aneurysm Discharge Orders/Prescriptions Prescriptions: New benzonatate 100 mg Capsule 200 mg PO TID PRN PRN (Reason: COUGH) Qty: 30 0RF amoxicillin-pot clavulanate 875-125 mg Tablet 1 tab PO BID 5 Days Qty: 10 0RF lisinopril 10 mg Tablet 10 mg PO BID 30 Days Qty: 60 2RF Rx Instructions: Hold for SBP less than 120 mmHg Mucinex DM 30-600 mg Tablet Extended Release 12 Hr 1 tab PO BID 7 Days Qty: 14 0RF metoprolol tartrate 25 mg Tablet 25 mg PO BID 30 Days Qty: 60 2RF Rx Instructions: Hold for heart less than 50 or systolic blood pressure less than 100 mmHg. Atrovent HFA 17 mcg/actuation HFA aerosol inhaler 2 puff inhalation Q6H PRN (Reason: shortness of breath or wheezing) 30 Days Qty: 12.9 0RF Rx Instructions: administer with spacer budesonide-formoterol [Symbicort] 160-4.5 mcg/actuation HFA aerosol inhaler 2 puff inhalation BID Qty: 10.2 0RF prednisone 10 mg tablet 10 mg PO DAILY Qty: 30 0RF Rx Instructions: 40 mg for 3 days 30 mg for 3 days, 20 mg for 3 days,and 10 mg for 3 days codeine-guaifenesin [Guaifenesin AC] 10-100 mg/5 mL liquid 5 ml PO Q6H PRN (Reason: SEVERE COUGH) 7 Days Qty: 120 0RF furosemide 40 mg tablet 40 mg PO DAILY PRN (Reason: leg swelling/weight gain) Qty: 30 0RF Other Ambulatory Orders: 14 Day Event Recorder Preventi (Urgent) Timeframe: 1 Day Facility: [facility] - Location: Cardiovascular Services Ordered By: Dr. Dom Pepper Referrals / Follow Up: Melida Moore MD [Med Staff - Active Staff] - Within 1 Month Miguelito Gamez MD [Med Staff - Active Staff] - Within 2 Weeks (FOR Reactive airway disease r/o asthma, pneumonia) Rigo Marcano MD [Non-Staff] - Care Physician,No Primary [Primary Care Provider] - Disposition Disposition (needs filled in before D/C Order can be placed): Home, Self Care Charges/Coding Visit Charges Inpatient E&M: 74718 Disch Hosp >30min
[2023-08-27] MEDS: Ipratropium 0.5 MG/2.5 ML SOLUTION INHALATION ×2 (10:12→16:33)
[2023-08-27] MEDS: Furosemide 20 MG/2 ML VIAL IV (10:24)
[2023-08-27] MEDS: Metoprolol Tartrate 25 MG Tablet PO (10:25)
[2023-08-27] MEDS: Amox/Clavulanate 875 MG Tablet PO (10:25)
[2023-08-27] MEDS: Lisinopril 10 MG Tablet PO (10:25)
[2023-08-27] MEDS: guaiFENesin/D-Methorphan TAB.SR.12H 1 TABLET PO (10:25)
--- NOTE | 2023-08-27 11:21 | CASEMGMT ---
Addendum entered by Mike Seals 08/27/23 15:46: Adi JOHANSEN, states pt is requesting a nebulizer as she feels this will be more affordable than Atrovent inhaler. ELENO ONEIL obtained a script for a nebulizer from Dr Pepper and he e-scribed ipratropium to [facility] retail pharmacy. Script provided to pt and she was made aware she can take to any DME co of choice. ELENO ONEIL later informed by ELENO Rodriguez CM director, that pt called her and pt having difficulty w/obtaining a nebulizer right away from [facility] unless she puts $100 down. ELENO ONEIL to room. Pt states she called [facility] and Michelle, who takes care of DME is out until Wednesday and nebulizer not able to be processed through her insurance until then, so that is why she would need to put $100 down. ELENO ONEIL inquired if she would like to get nebulizer for another DME co and she states is okay w/this. She was made aware [facility] is affiliated w/[facility] and they do have nebulizers available. She states would like to get from [email or web address]. Script sent to [email or web address] via [email or web address]. Call to Nona @ [email or web address] who states she can deliver the nebulizer to pt's room today. Pt made aware of same. Original Note: ELENO ONEIL NOTE: Pt being discharged home today. Home O2 testing has been completed and pt does not qualify for any O2. ELENO ONEIL to room. Pt resting in bed. She denies having any discharge/home-going needs. She states she has not found a PCP yet, as she was hoping to get in with [facility] PCP, but they are not taking new pt's at this time. She plans to make more calls to other PCP's on Wednesday and denies needing help/assistance from CM. Karina SAWANT RN, CM
--- NOTE | 2023-08-27 12:36 | CASEMGMT ---
Social Work SW met w/pt, asked her about LW/POA, pt does not have the forms, she is not interested in further information or completing the forms at this time. CAMILLE Yoon
== END 2023-08-27 16:57 | disposition home or self-care (01) | DRG 203 ==
LOC: ED 08:06 → PCU 08:13
PROVIDERS: Admitting Provider Internal Medicine; Emergency Provider Emergency Medicine; Visit Provider Internal Medicine
DX: J45.51 Severe persistent asthma with (acute) exacerbation (principal); B95.4 Other streptococcus as the cause of diseases classified elsewhere; I71.21 Aneurysm of the ascending aorta, without rupture; E66.01 Morbid (severe) obesity due to excess calories; I48.91 Unspecified atrial fibrillation; E03.9 Hypothyroidism, unspecified; I10 Essential (primary) hypertension; I35.1 Nonrheumatic aortic (valve) insufficiency; E87.6 Hypokalemia; F17.290 Nicotine dependence, other tobacco product, uncomplicated; J20.8 Acute bronchitis due to other specified organisms; J20.2 Acute bronchitis due to streptococcus; I16.0 Hypertensive urgency; F90.9 Attention-deficit hyperactivity disorder, unspecified type; B95.61 Methicillin susceptible Staphylococcus aureus infection as the cause of diseases classified elsewhere; Z68.38 Body mass index [BMI] 38.0-38.9, adult; Z71.3 Dietary counseling and surveillance; Z79.82 Long term (current) use of aspirin; Z79.899 Other long term (current) drug therapy
CPT/HCPCS: 36415; 71045; 71275; 80048; 80061; 83605; 83735; 83880; 84100; 84443; 84484; 85025; 85379; 85610; 85730; 87040; 87070; 87077; 87186; 87205; 87428; 87449; 87633; 87635; 87641; 93005; 93306; 94640; 94668; 99285; 99406; J7030; J7040; Q9967; A4216; J1940

== ENCOUNTER 2023-09-05 02:35 | Emergency (ER) | payer MEDICARE, SELFPAY ==
[2023-09-05] VITALS (7 sets, daily range): BP systolic 107–134; BP diastolic 50–78; PULSE 80–188; RESP 13–21; TEMP 36.3–36.6; O2SAT 97–100; BMI 39.9
--- NOTE | 2023-09-05 02:49 | EKG12_ITS ---
Test Reason : CP Blood Pressure : / mmHG Vent. Rate : 183 BPM Atrial Rate : 000 BPM P-R Int : 000 ms QRS Dur : 080 ms QT Int : 218 ms P-R-T Axes : 000 -07 197 degrees QTc Int : 380 ms Critical Test Result: High HR Supraventricular tachycardia Left ventricular hypertrophy with repolarization abnormality ( R in aVL ) Abnormal ECG Confirmed by DAISY ALLEN MD ([id number]), editor map DICK SEALS ([id number]) on 09/06/2023 10:11:24 AM Referred By: BB Confirmed By:DAISY ALLEN MD
[2023-09-05] MEDS: Adenosine 6 MG/2 ML Syringe IV (02:53)
--- NOTE | 2023-09-05 02:58 | ED.VIS.CHEST ---
HPI History of Present Illness Chief Complaint: Palpitations Informant: patient Narrative Narrative: Patient presents around 2:30 AM for symptoms that started less than 1 hour ago suddenly, waking her up from sleep, rapid palpitations, a little dyspnea, and some mild retrosternal nonpleuritic chest pressure. She has a history of SVT in the past, she was just discharged almost 1 week ago from the hospital after being admitted for an asthma flareup and she went into A-fib with RVR for the first time while here. She cardioverted after being given Cardizem IV. She states she can tell her heart is racing, but she cannot tell exactly what is going on based on her prior experiences. She does states she is very uncomfortable. She had a little bit of dyspnea off and on this past day but no chest discomfort until she woke up this morning. She states these episodes of tachycardia have been off-and-on since she was discharged but not nearly as prolonged or severe as she has had tonight. Patient states she was discharged from the hospital with instructions to wear an event monitor when she received it, she states she received it this past day and has it, but has not put it on yet. She has yet to follow-up with cardiology since it has only been 1 week. She has not been using albuterol inhaler a lot at home. [facility] Medical History Aortic regurgitation Hypertension Other intervertebral disc degeneration, lumbar region Other intervertebral disc degeneration, lumbosacral region Pneumonia Radiculopathy, lumbar region Radiculopathy, lumbosacral region Home Medications amoxicillin 875 mg-potassium clavulanate 125 mg tablet 1 tab PO BID 5 days #10 tabs 08/27/23 [Rx Last Taken Unknown] benzonatate 100 mg capsule 200 mg (2 x 100 mg) PO TID PRN PRN COUGH #30 caps 08/27/23 [Rx Last Taken Unknown] budesonide-formoterol HFA 160 mcg-4.5 mcg/actuation aerosol inhaler (Symbicort) 2 puff inhalation BID #10.2 grams 08/27/23 [Rx Last Taken Unknown] codeine 10 mg-guaifenesin 100 mg/5 mL oral liquid (Guaifenesin AC) 5 ml PO Q6H PRN SEVERE COUGH 7 days #120 mL 08/27/23 [Rx Last Taken Unknown] dextromethorphan-guaifenesin 30 mg-600 mg tablet extended [id number] hr (Mucinex DM) 1 tab PO BID 7 days #14 tabs 08/27/23 [Rx Last Taken Unknown] furosemide 40 mg tablet 40 mg PO DAILY PRN leg swelling/weight gain #30 tabs 08/27/23 [Rx Last Taken Unknown] ipratropium bromide 0.02 % solution for inhalation 2.5 ml inhalation Q6H PRN shortness of breath or wheezing #150 mL 08/27/23 [Rx Last Taken Unknown] lisinopril 10 mg tablet 10 mg PO BID 30 days #60 tabs 08/27/23 [Rx Last Taken Unknown] apixaban 5 mg (74 tabs) tablets in a dose pack ([employer] DVT-PE Treat 30D Start) 5 mg PO BID #74 tabs 09/05/23 [Rx Last Taken Unknown] metoprolol tartrate 25 mg tablet 50 mg (2 x 25 mg) PO BID 30 days #120 tabs 09/05/23 [Rx Last Taken Unknown] Allergy/AdvReac Type Severity Reaction Status Date / Time Influenza Virus Vaccines Allergy Mild PT UNABLE Verified 09/05/23 02:35 TO RESPOND-NEEDS F/U hydroxychloroquine Allergy Hives Verified 09/05/23 02:35 [From Plaquenil] [email or web address] [From Nubain] Allergy Itching Verified 09/05/23 02:35 Family History (Updated 08/23/23 @ 09:35 by Florence Purcell) Father Cancer Mother Cardiovascular disease Sister Diabetes Mother Hypertension Surgical History partial ovary removed Social History household members: spouse and children Smoking Status: Current some day smoker tobacco type: e-cigarettes ROS ROS ED Constitutional Constitutional ED: Denies chills or fever(s) Eyes Eyes: Denies change in vision or diplopia ENT ENT ED: Denies rhinorrhea or sore throat Cardiovascular Cardiovascular: Reports chest pain, lightheadedness, palpitations and racing heartbeat; Denies leg edema or syncope Respiratory/Chest Respiratory/Chest: Reports dyspnea; Denies cough Gastrointestinal Gastrointestinal: Denies abdominal pain, diarrhea, nausea or vomiting Genitourinary Genitourinary ED: Denies dysuria or hematuria Musculoskeletal Musculoskeletal: Denies back pain or neck pain Integumentary Denies abscess or rash Neurologic Neurologic: Denies headache(s), paresthesias or weakness Psychiatric Psychiatric: Denies anxiety or suicidal thoughts EXAM Physical Exam Const Vital Signs: 09/05/23 02:36 09/05/23 02:41 09/05/23 02:55 Temperature 97.4 F L Temperature Source Temporal Pulse Rate 188 H Respiratory Rate 18 Respiratory Pattern Normal Blood Pressure 129/73 H Blood Pressure Mean 91 Pulse Ox 100 Oxygen Delivery Method Room Air Nasal Cannula Oxygen Flow Rate (L/min) 2 09/05/23 02:55 09/05/23 03:06 09/05/23 03:17 Temperature Temperature Source Pulse Rate 127 H 82 80 Respiratory Rate 14 21 H Respiratory Pattern Blood Pressure 129/74 H 107/50 L Blood Pressure Mean 92 69 Pulse Ox 98 98 Oxygen Delivery Method Room Air Room Air Oxygen Flow Rate (L/min) 09/05/23 04:54 09/05/23 05:26 Temperature Temperature Source Pulse Rate 87 82 Respiratory Rate 15 16 Respiratory Pattern Blood Pressure 134/66 H 120/67 Blood Pressure Mean 88 84 Pulse Ox 98 97 Oxygen Delivery Method Room Air Room Air Oxygen Flow Rate (L/min) Positive well nourished and well developed General Appearance ED: well developed and NAD HEENT Reports moist mucous membranes normocephalic and atraumatic Eyes PERRL and EOMs intact bilaterally Neck full ROM, supple and no JVD Resp normal respiratory effort and clear to auscultation bilaterally Cardio regular rate and regular rhythm Rate: tachycardic GI non-tender and non-distended Auscultation: normoactive bowel sounds Palpation: soft Back/Spine no CVA tenderness General Back: other FROM Extremity normal to inspection General Extremety ED: Negative for edema, pulses abnormal or tenderness General Extremity: Negative for edema or pulses abnormal Neuro oriented x3, CN's II-XII intact bilaterally and no sensory deficits noted Sensorium / Orientation: awake and alert Motor Exam: strength 5/5 throughout Psych Mood & Affect: anxious Skin no rashes or lesions noted and no wounds MDM MDM MDM Narrative Medical decision making narrative: Her EKG shows a narrow complex tachycardia at approximately 180. 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 Her blood pressure is good and she clinically is keenly alert, so after discussing with the patient she was amenable to starting with adenosine. With adenosine, she appeared to convert to normal sinus rhythm but this was very short-lived, and subsequently seemed to go back into tachycardia. Morphology did not change her does not appear to be an aberrancy or ventricular tachycardia. Blood pressure remained stable, so from there she was given Cardizem and workup was performed. She just had a scan 1-2 weeks ago for PE which was negative I do not feel that needs to be repeated. She appears to have a TAA and 3+ aortic insufficiency but good LV systolic function and no other significant structural heart disease. Soon after she was given Cardizem, her rate slowed to the 80s, it is irregular and my interpretation of the rhythm strip is that she is now in rate controlled atrial fibrillation, it is clear that there are no consistent P waves, and on reevaluation she is feeling much better. Blood pressure remained stable in the 100s. Reviewing the cardiology consultation from 10 days ago when she was admitted to the hospital, basically states she had a brief episode of A-fib in the setting of doing lots of nebulizers from her asthma exacerbation and continuing asthma was recommended, but if she had further episodes then anticoagulation recommended, and a 15-day event monitor was ordered for her. While awaiting second troponin, patient started to gradually get more tachycardic, she started feeling her heart pounding again, was noted that she was in the 130s in A-fib still. Therefore she was given another dose of Cardizem at 10 mg, which helped so we held off on the drip. Her blood pressure remained stable, 120/67 last check. Discussed with cardiology on-call Dr. Tellez, he agrees with prescribing the patient anticoagulants, advises doubling her metoprolol and having her follow-up as an outpatient if her delta is negative. Her repeat troponin came back well within normal limits at 19. Although this is an increase from 7, it is a minor increase and I believe she is stable to be discharged. She is comfortable with all of this we discussed the anticoagulant as well as her metoprolol we will give her a new prescription and I will have staff help her apply the monitor if she needs help putting it on and getting it started since she has it with her. History & Record Review Additional record(s) reviewed:: Prior inpatient record and Prior ED visit Lab Data Attestation: I reviewed the patient's lab results. Labs: Laboratory Results - last 24 hr 09/05/23 09/05/23 02:47 05:25 WBC 12.3 H RBC 4.14 L Hgb 9.6 L Hct 34.0 L MCV 82.1 MCH 23.2 L MCHC 28.2 L RDW Std Deviation 50.2 H RDW Coeff of Mango 17.2 H Plt Count 397 MPV 9.2 Immature Gran % (Auto) 1.200 H Neut % (Auto) 67.0 Lymph % (Auto) 22.9 [place] % (Auto) 7.8 Eos % (Auto) 0.8 Baso % (Auto) 0.3 Absolute Neuts (auto) 8.2 H Absolute Lymphs (auto) 2.81 Nucleated RBC % 0 Sodium 141 Potassium 4.2 Chloride 111 H Carbon Dioxide 24.0 Anion Gap 6 BUN 11 Creatinine 0.77 Estim Creat Clear Calc 67.09 Est GFR (MDRD) Af Amer 98 Est GFR (MDRD) Non-Af 81 BUN/Creatinine Ratio 14.3 Glucose 131 H Calcium 8.8 Troponin I High Sens 7 19 Radiography Diagnostic Testing: Clinical Impression(s) from Imaging Studies Chest X-Ray 09/05/23 03:05 IMPRESSION: No significant interval change or acute process. Electronically Signed: Chad Marin MD at 3:53 EST Reading Location ID and State: [address] [place] [address] Tel , Service support , Rhythm Strip Rhythm Strip: narrow complex tachycardia Rate: 180 Ectopy: None EKG Initial EKG: Attestation: I personally reviewed and interpreted this EKG as follows: Interpretation: No Acute Injury Pattern and - (SVT) Prior EKG tracings: available for review Prior: Changed (rhythm, but morphology unchanged) Management Discussion w/another healthcare provider: [employer] (Cardiology) Discharge Plan Triage Chief Complaint: Palpitations ED Provider: Sebastien Alvarez Dx/Rx/DC Orders Clinical Impression: Atrial fibrillation with rapid ventricular response, Chest pain, SVT (supraventricular tachycardia) Instructions: AFib Dc Prescriptions: New Eliquis DVT-PE Treat 30D Start 5 mg (74 tabs) tablets,dose pack 5 mg PO BID Qty: 74 0RF Rx Instructions: use as directed Continued benzonatate 100 mg Capsule 200 mg PO TID PRN PRN (Reason: COUGH) Qty: 30 0RF amoxicillin-pot clavulanate 875-125 mg Tablet 1 tab PO BID 5 Days Qty: 10 0RF lisinopril 10 mg Tablet 10 mg PO BID 30 Days Qty: 60 2RF Rx Instructions: Hold for SBP less than 120 mmHg Mucinex DM 30-600 mg Tablet Extended Release 12 Hr 1 tab PO BID 7 Days Qty: 14 0RF budesonide-formoterol [Symbicort] 160-4.5 mcg/actuation HFA aerosol inhaler 2 puff inhalation BID Qty: 10.2 0RF codeine-guaifenesin [Guaifenesin AC] 10-100 mg/5 mL liquid 5 ml PO Q6H PRN (Reason: SEVERE COUGH) 7 Days Qty: 120 0RF furosemide 40 mg tablet 40 mg PO DAILY PRN (Reason: leg swelling/weight gain) Qty: 30 0RF ipratropium bromide 0.02 % solution 2.5 ml inhalation Q6H PRN (Reason: shortness of breath or wheezing) Qty: 150 0RF Changed metoprolol tartrate 25 mg Tablet 50 mg PO BID 30 Days Qty: 120 0RF Rx Instructions: Hold for heart less than 50 or systolic blood pressure less than 100 mmHg. Discontinued prednisone 10 mg tablet 10 mg PO DAILY Qty: 30 0RF Rx Instructions: 40 mg for 3 days 30 mg for 3 days, 20 mg for 3 days,and 10 mg for 3 days Primary Care Provider: Care Physician,No Primary Referrals: Melida Moore MD [Med Staff - Active Staff] - None (call for appt to be seen in 3-4 weeks, after your event monitor is done and turned in) Activity Restrictions/Additional Instructions: When you get the Eliquis prescription filled, start it at the beginning of a day, rather than in the evening so that the number of doses evens out at the end. You already had this morning's dose of metoprolol 50 mg. You may double your old prescription until it runs out and then start the new one which is the same tablets. Disposition Disposition: Home, Self Care
[2023-09-05] MEDS: dilTIAZem 25 MG/5 ML Vial 20 MG IV BOLUS (03:02)
[2023-09-05 03:05] LABS: Absolute Lymphocyte Count 2.81 X10^3/uL (0.83-4.51); Absolute Neutrophil Count 8.2 X10^3/uL (2.0-7.7); Basophil# 0.04 X10^3/uL; Basophil% 0.3 % (0-1); Eosinophils% 0.8 % (0-5); Hemoglobin 9.6 g/dL (12.0-15.0); Lymphocyte # 2.81 X10^3/ul (0.83-4.51); Lymphocyte % 22.9 % (19-41); Mean Corp Hgb Conc 28.2 g/dL (32-36); Mean Corpuscular Hgb 23.2 pg (27.0-32.0); Mean Corpuscular Volume 82.1 fL (81-99); Mean Platelet Vol. 9.2 fl (6.2-12.0); Monocyte# 0.96 X10^3/uL; Monocyte% 7.8 % (0-10); NRBC Flagged by Analyzer 0 % (0-5); Neutrophil # 8.19 X10^3/uL (2.7-7.7); Platelet Count 397 K/mm3 (150-450); RBC Distribution Width CV 17.2 % (11.6-14.6); RBC Distribution Width SD 50.2 fl (35.1-43.9); Red Blood Count 4.14 M/mm3 (4.2-5.4); White Blood Count 12.3 K/mm3 (4.4-11.0)
--- NOTE | 2023-09-05 03:05 | RAD_ITS ---
EXAM: XR CHEST, 1 VIEW CLINICAL INDICATION: chest pain TECHNIQUE: Frontal view of the chest. COMPARISON: Previous chest radiographs of 08/25/2023 and 08/23/2023. CT chest of 08/25/2023. FINDINGS: LUNGS AND PLEURAL SPACES: Chronic atelectasis or scarring noted along the left hemidiaphragm, unchanged. A linear band of atelectasis has also developed laterally in the left midlung. No consolidation or edema. No pleural effusion or pneumothorax. HEART: Heart size is borderline enlarged, accentuated by technique. Normal pulmonary vasculature. MEDIASTINUM: Thoracic aorta remains mildly elongated. No mediastinal widening. BONES/JOINTS: There are thoracic degenerative spurring. No acute osseous abnormality. SOFT TISSUES: Unremarkable. RAD/Chest 1 View (Portable) IMPRESSION: No significant interval change or acute process. Electronically Signed: Chad Marin MD at 3:53 EST ,
[2023-09-05 03:46] LABS: Anion Gap 6 (5-15); BUN 11 mg/dL (7-18); BUN/Creat Ratio 14.3 RATIO (10-20); Calcium,Total 8.8 mg/dL (8.5-10.1); Chloride 111 mmol/L (98-107); Creatinine, Serum 0.77 mg/dL (0.55-1.02); EST Glomerular Filtration Rate 81 mL/min (>60); Est Glom Filt Rate - Afr Amer 98 mL/min (>60); Estimated Creatinine Clearance 67.09 ml/min; Glucose 131 mg/dL (74-106); Potassium 4.2 mmol/L (3.5-5.1); Sodium Level 141 mmol/L (136-145); Troponin-I HS (w/2H Reflex) 7 pg/mL (3.0-54.0)
--- NOTE | 2023-09-05 04:43 | ED.RN ---
patient called out complaining of increased sob with chest pressure. patient hr shows a fib with increased rhythm around 120. Dr. Alvarez made aware and cardizem drip to be ordered
[2023-09-05] MEDS: dilTIAZem 25 MG/5 ML Vial 10 MG IV BOLUS (04:55)
[2023-09-05 05:01] LABS: Reflex Troponin-HS? (from REC) Y
[2023-09-05] MEDS: Metoprolol Tartrate 25 MG Tablet 50 MG PO (05:39)
[2023-09-05 06:12] LABS: Troponin-I HS 19 pg/mL (3.0-54.0)
--- NOTE | 2023-09-05 06:50 | ED.RN ---
ASSISTED PATIENT IN APPLYING [employer] MONITOR THAT SHE RECEIVED IN THE MAIL YESTERDAY. PT STATES THAT SHE IS SUPPOSED TO HAVE ON FOR 2 WEEKS. SHOWED PATIENT HOW TO APPLY, HOW TO CONNECT TO PHONE, AND THAT THERE IS A SUPPORT NUMBER IN BOOKLET IF NEEDED.
== END 2023-09-05 07:05 | disposition home or self-care (01) ==
PROVIDERS: Emergency Provider Emergency Medicine; Visit Provider Emergency Medicine
DX: I48.91 Unspecified atrial fibrillation (principal); R07.9 Chest pain, unspecified; I47.10 Supraventricular tachycardia, unspecified; F17.290 Nicotine dependence, other tobacco product, uncomplicated; R06.00 Dyspnea, unspecified
CPT/HCPCS: 36415; 71045; 80048; 84484; 85025; 93005; 96374; 96375; 96376; 99285; J7030; A4216; J0153

== ENCOUNTER → 2023-12-15 | Outpatient (CLI) | payer MEDICARE, SELFPAY ==
[2023-12-15 15:08] LABS: Hematocrit 34.9 % (37-47); Hemoglobin 10.7 g/dL (12.0-15.0); Mean Corp Hgb Conc 30.7 g/dL (32-36); Mean Corpuscular Hgb 26.7 pg (27.0-32.0); Mean Platelet Vol. 9.6 fl (6.2-12.0); Platelet Count 309 K/mm3 (150-450); RBC Distribution Width CV 15.9 % (11.6-14.6); RBC Distribution Width SD 51.2 fl (35.1-43.9); Red Blood Count 4.01 M/mm3 (4.2-5.4); White Blood Count 6.4 K/mm3 (4.4-11.0)
[2023-12-15 15:36] LABS: ALB/GLOB Ratio 0.9 RATIO (0.9-2.4); AST(SGOT) 17 U/L (15-37); Alanine Aminotransfer ALT/SGPT 17 U/L (13-56); Albumin, Serum 3.5 g/dL (3.2-5.0); Alkaline Phosphatase 99 U/L (45-117); Anion Gap 6 (5-15); BUN 15 mg/dL (7-18); BUN/Creat Ratio 20.2 RATIO (10-20); Calcium,Total 9.5 mg/dL (8.5-10.1); Chloride 108 mmol/L (98-107); Cholesterol 215 mg/dL (200); Creatinine, Serum 0.74 mg/dL (0.55-1.02); EST Glomerular Filtration Rate 85 mL/min (>60); Est Glom Filt Rate - Afr Amer 102 mL/min (>60); Globulin 3.9 g/dL (2.2-4.2); Glucose 120 mg/dL (74-106); High Density Lipoprotein 57 mg/dL; Protein, Total 7.4 g/dL (6.4-8.2); Sodium Level 141 mmol/L (136-145); Triglycerides 156 mg/dL; Very Low Density Lipoprotein 31 mg/dL (5-40)
== END | disposition home or self-care (01) ==
LOC: LAB 14:29
PROVIDERS: Referring Provider Internal Medicine Cardiovascular Disease; Visit Provider Internal Medicine Cardiovascular Disease
DX: I10 Essential (primary) hypertension (principal); I48.0 Paroxysmal atrial fibrillation; E78.5 Hyperlipidemia, unspecified; I35.1 Nonrheumatic aortic (valve) insufficiency; E03.9 Hypothyroidism, unspecified; R06.00 Dyspnea, unspecified
CPT/HCPCS: 36415; 80053; 80061; 85027

== ENCOUNTER 2023-12-21 09:22 | Day surgery (SDC) | payer MEDICARE, SELFPAY ==
[2023-12-20 08:37] VITALS: BMI 39.6
--- NOTE | 2023-12-21 14:26 | CL.D_ITS ---
Patient Name: BEE SIDDIQUI Study Date: 12/21/2023 Performing: Melida Moore MD Ht: 64 inches 162.56 cm : 1960 Wt: 231 lbs 104.78 kg Age: 62 Gender: female BSA: 2.08 PROCEDURE(S) PERFORMED DC01-(88206)LHC/COR/LV DC11-(76530)AO ROOT ANGIO WITH HEART CATH CLINICAL PROFILE AND INDICATIONS Indications: Valvular Disease, Pre-Operative Evaluation Heart Failure: None Angina Classification Anginal Classification w/in 2 Weeks: No symptoms CONCLUSIONS Prox LAD 40-50% Mid RCA 50-60% LVEF 55% Dilated Aortic Root Severe Aortic Valve Regurgitation RECOMMENDATIONS CTS consult for Aortic Root dilatation and severe AR Risk factor modification DESCRIPTION OF PROCEDURE The patient arrived to the procedure lab. The risks and benefits of the procedure as well as a full description of our services here and current unavailability of surgical backup were fully explained to the patient and/or their significant other prior to the catheterization. The Timeout was completed, verifying the correct patient and procedure. The patient's procedural site was prepped and draped in the usual fashion. Local anesthetic was given subcutaneously to right radial region with Lidocaine 2%. Using a modified Seldinger technique, arterial access was obtained via the right radial artery, a 6Fr sheath was inserted. Left Coronary Artery selective angiography was performed in multiple views using a 5 Fr. 4.0 [place] catheter. Right Coronary Artery selective angiography was then performed in multiple views using a 5 Fr. JR 5 catheter. Left Ventriculography was performed in TOBIAS projection using a 5 Fr. Pigtail catheter. LV to AO pullback pressures were then recorded.The arterial sheath was pulled and a TR Band was applied for hemostasis CORONARY ANGIOGRAPHY DOMINANCE: Right Dominant LEFT HEART ASSESSMENT Left Ventricular Ejection Fraction: by LV Gram 55 % LVEDP: 20 mmHg Aortic Valve Mean Gradient: [id number] LEFT MAIN: Angiographically normal LEFT ANTERIOR DESCENDING ARTERY: LAD: Tubular 50% Proximal lesion in LAD CIRCUMFLEX ARTERY: Angiographically normal RIGHT CORONARY ARTERY: RCA: Tubular 60% Mid lesion in RCA VALVE FINDINGS: Aortic Valve Insufficiency: Grade 3 AORTIC ROOT: Dilated COMPLICATIONS No Complications PROCEDURE MEDICATIONS Versed 1 mg IV Fentanyl 50 mcg IV Versed 1 mg IV Fentanyl 50 mcg IV Oxygen: 2 L/min via nasal cannula Heparin 2000 unit(s) IV 12/21/2023 12:43:46 Heparin given IA 12/21/2023 12:47:50 Verapamil 2.5mg, Ntg 200mcgs, 2000 units of Heparin given IA 12/21/2023 12:47:50 SUMMARY OF HEMODYNAMIC DATA Time AIR REST AO 171/66 (103) SA 12:45:00 LV 184/19, 36 13:03:55 LV 188/21, 39 13:04:03 LV 172/20, 24 13:07:08 LV 185/31, 48 13:07:49 LV 178/28, 42 13:07:58 LVp 192/32, 49 13:08:12 AOp 190/76 (120) 13:08:20 ECG 13:23:37 13:23:41 Valve Area (c P-P/ms Time AIR REST Aortic 0.00 7.2 mn/166 ms 2.0 pk/166 ms 13:08:12 Signed By Melida Moore MD On 12/21/2023 13:25:53 Melida Moore MD
== END 2023-12-21 15:34 | disposition home or self-care (01) ==
PROVIDERS: PCP Family Medicine Geriatric Medicine; Referring Provider Internal Medicine Cardiovascular Disease; Visit Provider Internal Medicine Cardiovascular Disease
DX: I35.1 Nonrheumatic aortic (valve) insufficiency (principal); I71.20 Thoracic aortic aneurysm, without rupture, unspecified; I48.0 Paroxysmal atrial fibrillation; I10 Essential (primary) hypertension; E03.9 Hypothyroidism, unspecified; F17.290 Nicotine dependence, other tobacco product, uncomplicated; Z79.899 Other long term (current) drug therapy; Z79.01 Long term (current) use of anticoagulants
CPT/HCPCS: 93458; 99152; 99153; J7040; Q9967; C1769; C1894

== ENCOUNTER → 2023-12-24 | Outpatient (CLI) | payer MEDICARE, SELFPAY ==
[2023-12-24 12:12] LABS: Absolute Lymphocyte Count 1.85 X10^3/uL (0.83-4.51); Absolute Neutrophil Count 3.3 X10^3/uL (2.0-7.7); Basophil# 0.05 X10^3/uL; Basophil% 0.8 % (0-1); Eosinophil# 0.52 X10^3/uL; Eosinophils% 8.1 % (0-5); Hematocrit 36.6 % (37-47); Hemoglobin 11.2 g/dL (12.0-15.0); Lymphocyte # 1.85 X10^3/ul (0.83-4.51); Mean Corp Hgb Conc 30.6 g/dL (32-36); Mean Corpuscular Hgb 26.7 pg (27.0-32.0); Mean Corpuscular Volume 87.4 fL (81-99); Mean Platelet Vol. 9.6 fl (6.2-12.0); Monocyte# 0.61 X10^3/uL; Monocyte% 9.5 % (0-10); NRBC Flagged by Analyzer 0 % (0-5); Neutrophil # 3.27 X10^3/uL (2.7-7.7); Neutrophil % 51.2 % (47-70); Platelet Count 331 K/mm3 (150-450); RBC Distribution Width CV 15.8 % (11.6-14.6); RBC Distribution Width SD 49.4 fl (35.1-43.9); Red Blood Count 4.19 M/mm3 (4.2-5.4); White Blood Count 6.4 K/mm3 (4.4-11.0)
[2023-12-24 12:56] LABS: ALB/GLOB Ratio 0.9 RATIO (0.9-2.4); AST(SGOT) 14 U/L (15-37); Alanine Aminotransfer ALT/SGPT 18 U/L (13-56); Albumin, Serum 3.6 g/dL (3.2-5.0); Alkaline Phosphatase 100 U/L (45-117); Anion Gap 8 (5-15); BUN 14 mg/dL (7-18); BUN/Creat Ratio 17.2 RATIO (10-20); Calcium,Total 9.4 mg/dL (8.5-10.1); Chloride 103 mmol/L (98-107); Cholesterol 213 mg/dL (200); Creatinine, Serum 0.81 mg/dL (0.55-1.02); EST Glomerular Filtration Rate 76 mL/min (>60); Est Glom Filt Rate - Afr Amer 92 mL/min (>60); Globulin 4.2 g/dL (2.2-4.2); Glucose 103 mg/dL (74-106); High Density Lipoprotein 58 mg/dL; Potassium 4.2 mmol/L (3.5-5.1); Protein, Total 7.8 g/dL (6.4-8.2); Sodium Level 138 mmol/L (136-145); Thyroid Stim Hormone (TSH) 9.21 uIU/mL (0.358-3.74); Triglycerides 113 mg/dL; Very Low Density Lipoprotein 23 mg/dL (5-40)
[2023-12-24 13:02] LABS: Hepatitis C Antibody Non-Reactive (Nonreactive); Vitamin D,25 Hydroxy 22.6 ng/mL
[2023-12-24 17:15] LABS: Hemoglobin A1c 5.2 % (3.8-5.6)
== END | disposition home or self-care (01) ==
LOC: POLAB3 11:04
PROVIDERS: PCP Family Medicine Geriatric Medicine; Visit Provider Family Medicine Geriatric Medicine
DX: E03.9 Hypothyroidism, unspecified (principal); E78.5 Hyperlipidemia, unspecified; E55.9 Vitamin D deficiency, unspecified; R73.09 Other abnormal glucose; Z13.89 Encounter for screening for other disorder
CPT/HCPCS: 36415; 80053; 80061; 82306; 83036; 84443; 85025; 86803

== ENCOUNTER → 2024-02-03 | Outpatient (CLI) | payer MEDICARE, SELFPAY ==
[2024-02-03 16:28] LABS: AST(SGOT) 15 U/L (15-37); Alanine Aminotransfer ALT/SGPT 19 U/L (13-56); Albumin, Serum 3.9 g/dL (3.2-5.0); Alkaline Phosphatase 108 U/L (45-117); Anion Gap 5 (5-15); BUN 13 mg/dL (7-18); BUN/Creat Ratio 16.7 RATIO (10-20); CPK Total, Creatine Kinase 57 U/L (26-192); Calcium,Total 9.3 mg/dL (8.5-10.1); Chloride 106 mmol/L (98-107); Creatinine, Serum 0.78 mg/dL (0.55-1.02); EST Glomerular Filtration Rate 80 mL/min (>60); Est Glom Filt Rate - Afr Amer 97 mL/min (>60); Globulin 4.1 g/dL (2.2-4.2); Glucose 97 mg/dL (74-106); Sodium Level 138 mmol/L (136-145); Thyroid Stim Hormone (TSH) 5.28 uIU/mL (0.358-3.74)
== END | disposition home or self-care (01) ==
LOC: POLAB3 15:18
PROVIDERS: Internal Medicine Cardiovascular Disease; PCP Family Medicine Geriatric Medicine; Visit Provider Family Medicine Geriatric Medicine
DX: E03.9 Hypothyroidism, unspecified (principal)
CPT/HCPCS: 36415; 80053; 82550; 84443

== ENCOUNTER → 2024-04-27 | Outpatient (CLI) | payer MEDICARE, SELFPAY ==
[2024-04-27 11:37] LABS: Prothrombin Time (Protime)PT. 22.3 SECONDS (11.7-14.9)
== END | disposition home or self-care (01) ==
PROVIDERS: PCP Family Medicine Geriatric Medicine; Referring Provider Internal Medicine Cardiovascular Disease; Visit Provider Internal Medicine Cardiovascular Disease
DX: Z95.2 Presence of prosthetic heart valve (principal)
CPT/HCPCS: 36415; 85610

== ENCOUNTER → 2024-05-01 | Outpatient (CLI) | payer MEDICARE, SELFPAY ==
[2024-05-01 11:39] LABS: International Normalized Ratio 1.4
== END | disposition home or self-care (01) ==
PROVIDERS: PCP Family Medicine Geriatric Medicine; Referring Provider Internal Medicine Cardiovascular Disease; Visit Provider Internal Medicine Cardiovascular Disease
DX: I34.1 Nonrheumatic mitral (valve) prolapse (principal); Z95.2 Presence of prosthetic heart valve
CPT/HCPCS: 36415; 85610

== ENCOUNTER 2024-05-11 10:34 | Outpatient (RCR) | payer MEDICARE, SELFPAY ==
[2024-05-08 11:27] LABS: Prothrombin Time (Protime)PT. 30.9 SECONDS (11.7-14.9)
[2024-05-13 07:50] LABS: INR Fingerstick 3.6; Prothrombin Time Fingerstick 35.3 SEC (11.7-14.9)
== END 2024-05-11 18:00 | disposition home or self-care (01) ==
LOC: LAB 10:34
PROVIDERS: PCP Family Medicine Geriatric Medicine; Referring Provider Internal Medicine Cardiovascular Disease; Visit Provider Internal Medicine Cardiovascular Disease
DX: Z95.2 Presence of prosthetic heart valve (principal); I34.1 Nonrheumatic mitral (valve) prolapse
CPT/HCPCS: 36415; 36416; 85610

== ENCOUNTER 2024-05-17 05:59 | Emergency (ER) | payer MEDICARE, SELFPAY ==
[2024-05-17 06:00] VITALS: BP 128/72; PULSE 83; RESP 16; TEMP 36.2; O2SAT 99; BMI 39.4
--- NOTE | 2024-05-17 06:08 | RAD_ITS ---
EXAM: XR CHEST, 1 VIEW CLINICAL INDICATION: CP CP TECHNIQUE: Frontal view of the chest. COMPARISON: Chest x-ray 09/05/2023. FINDINGS: LUNGS AND PLEURAL SPACES: Unremarkable. No consolidation or edema. No pneumothorax. No effusion. HEART: There is a left atrial appendage clip. The heart is not enlarged. MEDIASTINUM: Central airways and mediastinal contour are unremarkable. BONES/JOINTS: There are sternotomy wires. There are multilevel degenerative changes in the visualized spine. No acute fracture. SOFT TISSUES: Unremarkable. RAD/Chest 1 View (Portable) IMPRESSION: No acute findings in the chest. Electronically Signed: Rafa Luong MD at 7:51 EDT Reading Location ID and State: [facility] / [place] , Service support ,
[2024-05-17 06:31] LABS: Absolute Lymphocyte Count 1.31 X10^3/uL (0.83-4.51); Absolute Neutrophil Count 4.2 X10^3/uL (2.0-7.7); Basophil# 0.04 X10^3/uL; Basophil% 0.6 % (0-1); Eosinophil# 0.42 X10^3/uL; Eosinophils% 6.4 % (0-5); Hematocrit 32.9 % (37-47); Hemoglobin 9.9 g/dL (12.0-15.0); Lymphocyte # 1.31 X10^3/ul (0.83-4.51); Lymphocyte % 19.8 % (19-41); Mean Corp Hgb Conc 30.1 g/dL (32-36); Mean Corpuscular Hgb 27.1 pg (27.0-32.0); Mean Corpuscular Volume 90.1 fL (81-99); Mean Platelet Vol. 8.8 fl (6.2-12.0); Monocyte# 0.66 X10^3/uL; NRBC Flagged by Analyzer 0 % (0-5); Neutrophil # 4.16 X10^3/uL (2.7-7.7); Neutrophil % 62.9 % (47-70); Platelet Count 298 K/mm3 (150-450); RBC Distribution Width CV 16.8 % (11.6-14.6); RBC Distribution Width SD 55.1 fl (35.1-43.9); Red Blood Count 3.65 M/mm3 (4.2-5.4); White Blood Count 6.6 K/mm3 (4.4-11.0)
[2024-05-17 06:50] LABS: Anion Gap 7 (5-15); BUN 10 mg/dL (7-18); BUN/Creat Ratio 10.8 RATIO (10-20); Calcium,Total 9.4 mg/dL (8.5-10.1); Chloride 102 mmol/L (98-107); Creatinine, Serum 0.93 mg/dL (0.55-1.02); EST Glomerular Filtration Rate 65 mL/min (>60); Est Glom Filt Rate - Afr Amer 79 mL/min (>60); Estimated Creatinine Clearance 74.71 ml/min; Glucose 114 mg/dL (74-106); Potassium 3.8 mmol/L (3.5-5.1); Sodium Level 137 mmol/L (136-145); Troponin-I HS (w/2H Reflex) < 3 pg/mL (3.0-54.0)
[2024-05-17 07:00] VITALS: BP 119/68; PULSE 107; RESP 14; O2SAT 95
--- NOTE | 2024-05-17 07:05 | CT_ITS ---
STUDY: CTA CHEST REASON FOR EXAM: Female, 63 years old. Chest pain RADIATION DOSAGE (If Supplied By Facility): CTDIvol = ( 11.06 ) mGy, DLP = ( 427.36 ) mGycm TECHNIQUE: The examination was performed with the intravenous administration of IV 100mL Isovue-370. Post-processing of the angiographic images was performed, with multiplanar reformation and 3D reconstruction. The protocol utilizes one or more of the following dose reduction techniques: automated exposure control, adjustment of mA and/or kV according to patient size,and/or use of iterative reconstruction technique. COMPARISON: Prior study dated: 09/02/2023 FINDINGS: Normal enhancement of the main pulmonary artery and right and left pulmonary arteries. Normal enhancement of the bilateral peripheral pulmonary arteries. There is no demonstrated pulmonary embolism. Stable 4.1 cm ascending thoracic aortic aneurysm. There is no demonstrated aortic dissection. Sternal cerclage wires are present from a prior sternotomy. Aortic valve prosthesis is seen. There are calcifications of the coronary arteries. There is mild fluid around the aortic root and ascending thoracic aorta. Normal mediastinum. Normal hilar regions. Normal visualized trachea and bronchi. The lungs are well expanded. There are no pulmonary infiltrates. Atelectatic changes in the lower lobes and lingula. There are no pleural effusions. Normal chest wall structures. No demonstrated acute osseous changes. The visualized portions of the upper abdomen demonstrate mild splenomegaly. CT/CTA Chest W/WO Contrast IMPRESSION: 1. No evidence of pulmonary embolism or aortic dissection. 2. Mild mediastinal fluid around the corticomedullary proximal ascending thoracic aorta. Correlation with echocardiogram [recommended. 3. Atelectatic changes in the lower lungs. No focal acute pulmonary infiltrate. 4. Mild splenomegaly. Electronically Signed: Sawyer Marcus MD at 10:03 EDT ,
[2024-05-17 07:16] LABS: International Normalized Ratio 1.8; Prothrombin Time (Protime)PT. 20.9 SECONDS (11.7-14.9)
[2024-05-17] MEDS: 0.9% Normal Saline (500mL Bag) 500 ML 999 ML IV (07:25)
[2024-05-17] MEDS: Ondansetron 4 MG/2 ML Vial IV (07:25)
--- NOTE | 2024-05-17 07:35 | EX.ED.DYSGE1 ---
HPI History of Present Illness Chief Complaint: Chest Pain Informant: patient Narrative Narrative: Patient is a 63-year-old female with past medical history of hypertension hypothyroidism proximal atrial fibrillation and mechanical aortic valve replacement. She states the valve was replaced roughly 4 weeks ago. She states she stayed in the hospital for 12 days and has been home for approximately 2 weeks. She states ever since the surgery she has had bouts of anxiety and intermittent bouts of chest discomfort. She states that over the last 1 to 2 days she simply has not felt well and she has noticed some discomfort in her left chest. She states that there is been no recent trauma or excessive activity and she reports she is taking her Coumadin as directed. However as she is concerned this could be related to a cardiac event or problem with her recent surgery she comes in for evaluation [facility] Medical History Paroxysmal atrial fibrillation Pneumonia Thoracic aortic aneurysm Aortic regurgitation First detected episode of atrial fibrillation Hypertension Atrial fibrillation with rapid ventricular response Reactive airway disease Acute dyspnea Other intervertebral disc degeneration, lumbar region Other intervertebral disc degeneration, lumbosacral region Radiculopathy, lumbar region Radiculopathy, lumbosacral region Aortic aneurysm Obesity (BMI 30-39.9) ADHD (attention deficit hyperactivity disorder) Hypothyroidism HTN (hypertension) Home Medications ?Medication ?Instructions ?Recorded ?Last Taken ?Type furosemide 40 mg tablet 40 mg PO DAILY leg swelling/weight 09/29/23 Unknown Rx gain #90 tabs potassium chloride 20 mEq 20 meq PO DAILY #90 tabs 09/29/23 Unknown Rx tablet,extended release ipratropium bromide 0.02 % 2.5 ml inhalation Q6H PRN 11/09/23 Unknown Rx solution for inhalation shortness of breath or wheezing #150 mL metoprolol tartrate 50 mg tablet 50 mg PO BID #180 tabs 11/24/23 12/21/23 Rx levothyroxine 25 mcg tablet 25 mcg PO DAILY 02/03/24 Unknown History aspirin 81 mg tablet,delayed 81 mg PO DAILY 04/28/24 Unknown History release (Adult Aspirin Regimen) warfarin 4 mg tablet 4 mg PO DAILY 05/17/24 Unknown History Allergy/AdvReac Type Severity Reaction Status Date / Time Influenza Virus Vaccines Allergy Mild PT UNABLE Verified 05/17/24 06:04 TO RESPOND-NEEDS F/U hydroxychloroquine (From Allergy Hives Verified 05/17/24 06:04 Plaquenil) nalbuphine (From Nubain) Allergy Itching Verified 05/17/24 06:04 Family History Father Cancer Mother Cardiovascular disease Sister Diabetes Mother Hypertension Surgical History (Updated 05/17/24 @ 07:[address] Virgilio Zarco, DO) S/P CABG x 1 H/O mechanical aortic valve replacement partial ovary removed Social History household members: spouse and children Smoking Status: Current some day smoker tobacco type: e-cigarettes ROS ROS ED Constitutional Constitutional ED: Denies chills or fever(s) Eyes Eyes: Denies blurry vision or change in vision ENT ENT ED: Denies sore throat Cardiovascular Cardiovascular: Reports chest pain; Denies palpitations or racing heartbeat Respiratory/Chest Respiratory/Chest: Denies cough or dyspnea Gastrointestinal Gastrointestinal: Denies abdominal pain, diarrhea, nausea or vomiting Genitourinary Genitourinary ED: Denies dysuria Musculoskeletal Musculoskeletal: Reports back pain Integumentary Denies rash Neurologic Neurologic: Denies headache(s) Psychiatric Psychiatric: Reports anxiety Hematologic/Lymphatic Hematologic/Lymphatic: Reports easy bleeding and easy bruising EXAM Physical Exam Const Vital Signs: 05/17/24 06:00 05/17/24 06:08 05/17/24 07:00 Temperature 97.1 F L Temperature Source Temporal Pulse Rate 83 107 H Respiratory Rate 16 14 Blood Pressure 128/72 H 119/68 Blood Pressure Mean 90 85 Pulse Ox 99 95 Oxygen Delivery Method Room Air Room Air Room Air 05/17/24 08:00 Temperature Temperature Source Pulse Rate 81 Respiratory Rate Blood Pressure 105/71 Blood Pressure Mean 82 Pulse Ox Oxygen Delivery Method Positive well nourished, well developed and obese General Appearance ED: well developed; Negative for pallor Nutritional Appearance: obese HEENT HEENT Narrative: Normocephalic atraumatic Eyes PERRL and EOMs intact bilaterally General Eye ED: Negative for pale conjunctiva or scleral icterus Neck supple Neck Narrative: No nuchal rigidity or meningeal signs noted Chest Wall palpation of chest normal Resp normal respiratory effort and clear to auscultation bilaterally Cardio regular rate and regular rhythm Rate: other Other Details: Heart is regular rate and rhythm with large systolic click consistent with history of mechanical aortic valve GI normal to inspection, nondistended, normoactive bowel sounds, non-tender, non-distended and no masses GI Narrative: No voluntary guarding or rigidity or pulsatile mass Auscultation: normoactive bowel sounds Palpation: soft Extremity normal to inspection Extremity Narrative: No asymmetric edema no pitting edema negative Homans' sign bilaterally Neuro oriented x3, CN's II-XII intact bilaterally and no sensory deficits noted Sensorium / Orientation: alert Motor Exam: strength 5/5 throughout Psych Psych Narrative: Patient has a nervous/anxious affect Mood & Affect: anxious Skin no rashes or lesions noted Skin Narrative: Postsurgical wound is clean dry and intact without secondary findings to suggest infection General Skin Exam: Negative for jaundice or pallor MDM MDM MDM Narrative Medical decision making narrative: Patient arrived to the ER with stable vitals. She reported simply feeling unwell but also noticed persistent chest discomfort since her surgery. She is anticoagulated on Coumadin but there is concern she could have failed this and developed a postoperative DVT/PE. There is concern for failure of the mechanical valve or potential dissection. There is also concern this could be acute coronary syndrome. Therefore an EKG was obtained which revealed no signs of ischemia or abnormal heart rhythm. Troponin was 3 going against acute coronary event. Her INR is slight low at 1.8 and therefore the decision was made to obtain a CTA in order to rule out postsurgical malfunction versus pulmonary embolus versus dissection. The patient CTA is still pending and therefore she will be signed out to the day physician Dr. Be. I feel that based on the patient's EKG stable vitals and negative troponin that if her CTA reveals no acute findings and she is otherwise safe for discharge History & Record Review Discussion w/independent historian: Patient Lab Data Attestation: I reviewed the patient's lab results. Labs: Laboratory Results - last 24 hr 05/17/24 06:20 WBC 6.6 RBC 3.65 L Hgb 9.9 L Hct 32.9 L MCV 90.1 MCH 27.1 MCHC 30.1 L RDW Std Deviation 55.1 H RDW Coeff of Mango 16.8 H Plt Count 298 MPV 8.8 Immature Gran % (Auto) 0.300 Neut % (Auto) 62.9 Lymph % (Auto) 19.8 [place] % (Auto) 10.0 Eos % (Auto) 6.4 H Baso % (Auto) 0.6 Absolute Neuts (auto) 4.2 Absolute Lymphs (auto) 1.31 Nucleated RBC % 0 PT 20.9 H INR 1.8 Sodium 137 Potassium 3.8 Chloride 102 Carbon Dioxide 28.0 Anion Gap 7 BUN 10 Creatinine 0.93 Estim Creat Clear Calc 74.71 Est GFR (MDRD) Af Amer 79 Est GFR (MDRD) Non-Af 65 BUN/Creatinine Ratio 10.8 Glucose 114 H Calcium 9.4 Troponin I High Sens < 3 L Radiography Diagnostic Testing: Clinical Impression(s) from Imaging Studies Chest X-Ray 05/17/24 06:08 IMPRESSION: No acute findings in the chest. Electronically Signed: Rafa Luong MD at 7:51 EDT Reading Location ID and State: [facility] / [place] , Service support , Chest x-ray as interpreted by the emergency medicine physician reveals postsurgical changes without acute infiltrate pneumothorax or pleural effusion Discharge Plan Triage Chief Complaint: Chest Pain ED Provider: David Be Dx/Rx/DC Orders Clinical Impression: H/O mechanical aortic valve replacement, HTN (hypertension), Paroxysmal atrial fibrillation, Nonspecific chest pain, Current use of mcc anticoagulation Instructions: Heart Surg Recovery 1st Few Weeks Prescriptions: No Action levothyroxine 25 mcg tablet 25 mcg PO DAILY aspirin [Adult Aspirin Regimen] 81 mg tablet,delayed release (DR/EC) 81 mg PO DAILY warfarin 4 mg tablet 4 mg PO DAILY furosemide 40 mg tablet 40 mg PO DAILY Qty: 90 3RF potassium chloride 20 mEq tablet extended release 20 meq PO DAILY Qty: 90 3RF ipratropium bromide 0.02 % solution 2.5 ml inhalation Q6H PRN (Reason: shortness of breath or wheezing) Qty: 150 0RF metoprolol tartrate 50 mg tablet 50 mg PO BID Qty: 180 3RF Primary Care Provider: Chino Patton Chi Referrals: Chino Patton Chi, MD [Primary Care Provider] - Activity Restrictions/Additional Instructions: Please continue all your medications as directed by your doctor and return to the ER should you have any further concerns Print Language: Bengali Disposition Disposition: Home, Self Care
[2024-05-17 08:00] VITALS: BP 105/71; PULSE 81
[2024-05-17 08:27] LABS: Reflex Troponin-HS? (from REC) Y
[2024-05-17 08:55] LABS: Troponin-I HS < 3 pg/mL (3.0-54.0)
[2024-05-17 09:00] VITALS: BP 122/70; PULSE 75; RESP 15; O2SAT 96
[2024-05-17 10:00] VITALS: BP 102/52; PULSE 84; RESP 19; O2SAT 97
[2024-05-17 10:35] VITALS: BP 123/75; PULSE 67; RESP 17; TEMP 36.7; O2SAT 96
== END 2024-05-17 10:36 | disposition home or self-care (01) ==
PROVIDERS: Emergency Medicine; Emergency Provider Emergency Medicine; PCP Family Medicine Geriatric Medicine; Visit Provider Emergency Medicine
DX: I10 Essential (primary) hypertension (principal); I48.0 Paroxysmal atrial fibrillation; R07.9 Chest pain, unspecified; F17.290 Nicotine dependence, other tobacco product, uncomplicated; E66.9 Obesity, unspecified; E03.9 Hypothyroidism, unspecified; Z79.82 Long term (current) use of aspirin; Z79.899 Other long term (current) drug therapy; Z79.01 Long term (current) use of anticoagulants
CPT/HCPCS: 71045; 71275; 80048; 84484; 85025; 85610; 93005; 96361; 96374; 99284; J7040; Q9967; A4216; J2405

== ENCOUNTER 2024-05-22 11:20 | Emergency (ER) | payer MEDICARE, SELFPAY ==
[2024-05-22] VITALS (8 sets, daily range): BP systolic 114–136; BP diastolic 62–102; PULSE 66–87; RESP 15–21; TEMP 36.6; O2SAT 94–98; BMI 37.1
--- NOTE | 2024-05-22 11:32 | EKG12_ITS ---
Test Reason : PALPS Blood Pressure : / mmHG Vent. Rate : 083 BPM Atrial Rate : 083 BPM P-R Int : 168 ms QRS Dur : 096 ms QT Int : 406 ms P-R-T Axes : 041 -16 070 degrees QTc Int : 477 ms Normal sinus rhythm Moderate voltage criteria for LVH, may be normal variant ( R in aVL , Silviano product ) Nonspecific ST abnormality Abnormal ECG Confirmed by DENA FLORES, CHER ([id number]), graphic editor MATTEO MAYO ([id number]) on 05/26/2024 9:40:02 AM Referred By: Confirmed By:JANNETH FERNANDES MD
--- NOTE | 2024-05-22 11:32 | RAD_ITS ---
INDICATION: chest pain EXAMINATION/TECHNIQUE: X-RAY - XR Chest 1 View COMPARISON: May 17, 2024 FINDINGS: LINES/DEVICES: None. LUNGS: No consolidation, edema or effusion. No pneumothorax. MEDIASTINUM AND CARDIOVASCULAR STRUCTURES: There are sternotomy wires in place. Cardiac silhouette not enlarged. There is a prosthetic cardiac valve in place. Central airways and mediastinal contour are unremarkable. BONES AND SOFT TISSUES: Unremarkable. RAD/Chest 1 View (Portable) IMPRESSION: No radiographic evidence of acute cardiopulmonary disease. Electronically Signed: Lauryn Nickerson MD at 12:32 EDT ,
--- NOTE | 2024-05-22 11:35 | EX.ED.DYSGE1 ---
HPI History of Present Illness Chief Complaint: Chest Pain Informant: patient and other (Cardiology) Narrative Narrative: Sent in from cardiology office I spoke with practitioner prior to arrival. History of atrial fibrillation. Status post one-vessel bypass with mechanical valve replacement April 14 up at [facility]. Patient was seen in the ED 4 days ago with A-fib with RVR she is rate controlled with increasing her metoprolol. Patient reported intermittent A-fib episodes for last 4 days. Reported in office heart rate 160s with blood pressure 90 over 50s. They reported recent subtherapeutic INR. There is send patient here for plan admission with rate control. She reports chronic left-sided chest discomfort. She has it right now. She has been taking her medications. She states recently started on Celexa and had loose stools. She has been weaker and fatigued. Denies bloody stools. Prior similar symptoms: Yes [facility] Medical History Paroxysmal atrial fibrillation Pneumonia Thoracic aortic aneurysm Aortic regurgitation First detected episode of atrial fibrillation Hypertension Atrial fibrillation with rapid ventricular response Reactive airway disease Acute dyspnea Other intervertebral disc degeneration, lumbar region Other intervertebral disc degeneration, lumbosacral region Radiculopathy, lumbar region Radiculopathy, lumbosacral region Aortic aneurysm Obesity (BMI 30-39.9) ADHD (attention deficit hyperactivity disorder) Hypothyroidism HTN (hypertension) Home Medications ?Medication ?Instructions ?Recorded ?Last Taken ?Type furosemide 40 mg tablet 40 mg PO DAILY leg swelling/weight 09/29/23 Unknown Rx gain #90 tabs levothyroxine 25 mcg tablet 25 mcg PO DAILY 02/03/24 Unknown History aspirin 81 mg tablet,delayed 81 mg PO DAILY 04/28/24 Unknown History release (Adult Aspirin Regimen) warfarin 4 mg tablet 4 mg PO DAILY 05/17/24 Unknown History amiodarone 200 mg tablet 200 mg PO DAILY 05/22/24 Unknown History amiodarone 200 mg tablet 200 mg PO DAILY #30 tabs 05/22/24 Unknown Rx citalopram 10 mg tablet 10 mg PO DAILY 05/22/24 Unknown History diltiazem HCl 120 mg 120 mg PO BID 05/22/24 Unknown History capsule,extended release 24 hr ipratropium 0.5 mg-albuterol 3 mg 3 ml inhalation Q6H 05/22/24 Unknown History (2.5 mg base)/3 mL nebulization soln lorazepam 1 mg tablet 1 mg PO DAILY 05/22/24 Unknown History methocarbamol 500 mg tablet 500 mg PO TID 05/22/24 Unknown History metoprolol tartrate 100 mg tablet 100 mg PO BID 05/22/24 Unknown History ondansetron 4 mg disintegrating 4 mg PO Q8H PRN PRN Nausea #10 tabs 05/22/24 Unknown Rx tablet oxycodone 5 mg tablet PO 05/22/24 Unknown History pantoprazole 40 mg tablet,delayed 40 mg PO DAILY 05/22/24 Unknown History release potassium chloride 20 mEq 20 meq PO DAILY 05/22/24 Unknown History tablet,extended release(part/cryst) rosuvastatin 40 mg tablet 40 mg PO DAILY 05/22/24 Unknown History Allergy/AdvReac Type Severity Reaction Status Date / Time Influenza Virus Vaccines Allergy Mild PT UNABLE Verified 05/22/24 11:22 TO RESPOND-NEEDS F/U hydroxychloroquine (From Allergy Hives Verified 05/22/24 11:22 Plaquenil) nalbuphine (From Nubain) Allergy Itching Verified 05/22/24 11:22 Family History Father Cancer Mother Cardiovascular disease Sister Diabetes Mother Hypertension Surgical History S/P CABG x 1 H/O mechanical aortic valve replacement partial ovary removed Social History household members: spouse and children Smoking Status: Current some day smoker tobacco type: e-cigarettes ROS ROS ED Constitutional Constitutional ED: Denies chills, fever(s) or sweats Eyes Eyes: Denies change in vision ENT ENT ED: Denies dysphagia or sore throat Cardiovascular Cardiovascular: Reports palpitations; Denies chest pain, leg edema or racing heartbeat Respiratory/Chest Respiratory/Chest: Denies cough, dyspnea or dyspnea on exertion Gastrointestinal Gastrointestinal: Denies abdominal pain, diarrhea, nausea or vomiting Genitourinary Genitourinary ED: Denies dysuria, hematuria or urinary frequency Musculoskeletal Musculoskeletal: Denies back pain, extremity pain or neck pain Integumentary Denies rash or wounds Neurologic Neurologic: Reports weakness; Denies headache(s) or paresthesias EXAM Physical Exam Const Vital Signs: 05/22/24 11:20 05/22/24 11:37 05/22/24 11:38 Temperature 98 F Temperature Source Temporal Pulse Rate 87 Respiratory Rate 16 Respiratory Pattern Normal Blood Pressure 134/83 H Blood Pressure Mean 100 Pulse Ox 98 96 Oxygen Delivery Method Room Air Room Air 05/22/24 12:43 05/22/24 13:00 05/22/24 13:54 Temperature Temperature Source Pulse Rate 66 68 69 Respiratory Rate 15 21 H 21 H Respiratory Pattern Blood Pressure 114/95 H 129/102 H 133/71 H Blood Pressure Mean 101 111 91 Pulse Ox 97 96 94 Oxygen Delivery Method Room Air Room Air Room Air 05/22/24 14:02 05/22/24 14:35 Temperature 97.8 F Temperature Source Pulse Rate 77 68 Respiratory Rate 18 16 Respiratory Pattern Blood Pressure 136/62 H 136/73 H Blood Pressure Mean 86 94 Pulse Ox 97 98 Oxygen Delivery Method Room Air Positive well nourished and well developed General Appearance ED: well developed and NAD HEENT Reports moist mucous membranes normocephalic and atraumatic Eyes EOMs intact bilaterally and conjunctivae normal General Eye ED: Yes normal appearance of both eyes; Negative for pale conjunctiva Neck no lymphadenopathy and supple General: Negative for tenderness Chest Wall Chest: Negative for tenderness Resp normal respiratory effort and normal air movement Effort and Inspection: symmetric chest movement; Negative for respiratory distress Cardio regular rate, regular rhythm and no murmurs Peripheral Pulses: pulses 2+ throughout GI normal to inspection, nondistended, normoactive bowel sounds and non-tender Palpation: Negative for guarding or rebound tenderness present Back/Spine no CVA tenderness and no thoracic nor lumbar tenderness Extremity normal to inspection General Extremety ED: Negative for edema or tenderness General Extremity: Negative for edema Neuro oriented x3, CN's II-XII intact bilaterally and no sensory deficits noted Sensorium / Orientation: awake and alert Skin no rashes or lesions noted and no wounds MDM MDM MDM Narrative Medical decision making narrative: Interventions / MDM: Differential diagnosis: Paroxysmal atrial fibrillation Diagnosis considered but do not suspect: ACS however negative workup. My EKG interpretation: Sinus rhythm rate of 83, no ST changes T wave inversion in anterior leads. Imaging independently reviewed and interpreted by myself: 1 view chest x-ray: No acute process. External documents reviewed: ER visit 4 days ago negative PE studies. Cardiac workup was negative. Test considered but not ordered:N/A ED course: Patient sinus rhythm on the monitor. Blood per systolic 120s. chronic chest pains however recent bypass. Laboratory studies checked, chest x-ray. 1230: Labs of only significant potassium 2.9 this is orally replaced. Troponin negative. Her INR therapeutic today at 2.9. Reevaluation remains sinus rhythm heart rate in the 60s. Blood pressure 120s. Further discussion with patient her cardiology team increased her metoprolol from 50 to 100 mg couple days ago on discussion. Reviewed records noted amiodarone she states she was transiently put on amiodarone while in the hospital postop and she was told she can stop it when she went home. She was taking it once a day. I will discuss with cardiology team plan of care with patient as she is currently in sinus rhythm. 1330: I discussed with Dr. Mejía. We discussed her paroxysmal A-fib episode last 4 days discussed her recent surgery history. Discussed she was transiently put on amiodarone daily. He states she should be back on amiodarone 20 mg daily. This was dose in the ED. Considered admission with her paroxysmal symptoms over 4 days however she has been stable. Discussed that she can continue amiodarone daily and follow-up as an outpatient with return precautions. This was discussed with the patient. She agrees with plan. She was able to ambulate in the ED with no return of symptoms. Re-evaluation: stable Disposition discussed with patient/family/significant other: Patient and family Case discussed with consulting clinician: Cardiology This note was generated with SHADO dictation software. It may contain incorrect words, spelling, and punctuation that were not noted in checking the note before signing. Lab Data Attestation: I reviewed the patient's lab results. Labs: Laboratory Results - last 24 hr 05/22/24 05/22/24 11:55 14:10 WBC 4.2 L RBC 3.64 L Hgb 9.8 L Hct 31.8 L MCV 87.4 MCH 26.9 L MCHC 30.8 L RDW Std Deviation 51.8 H RDW Coeff of Mango 16.2 H Plt Count 327 MPV 9.2 Immature Gran % (Auto) 0.200 Neut % (Auto) 54.0 Lymph % (Auto) 27.4 [place] % (Auto) 10.5 H Eos % (Auto) 6.9 H Baso % (Auto) 1.0 Absolute Neuts (auto) 2.3 Absolute Lymphs (auto) 1.15 Nucleated RBC % 0 PT 29.7 H INR 2.9 Sodium 138 Potassium 2.9 L Chloride 105 Carbon Dioxide 27.0 Anion Gap 6 BUN 7 Creatinine 0.91 Estim Creat Clear Calc 73.91 Est GFR (MDRD) Af Amer 81 Est GFR (MDRD) Non-Af 67 BUN/Creatinine Ratio 7.7 L Glucose 112 H Calcium 9.2 Troponin I High Sens < 3 L < 3 L Radiography Diagnostic Testing: Clinical Impression(s) from Imaging Studies Chest X-Ray 05/22/24 11:32 IMPRESSION: No radiographic evidence of acute cardiopulmonary disease. Electronically Signed: Lauryn Nickerson MD at 12:32 EDT , Discharge Plan Triage Chief Complaint: Chest Pain Other Complaint: Palpitations ED Provider: Brock Harding Dx/Rx/DC Orders Clinical Impression: H/O mechanical aortic valve replacement, Paroxysmal A-fib, S/P CABG x 1, Current use of detention anticoagulation, Hypokalemia Instructions: ED AFIB, ED Chest Pain, Uncertain Cause Prescriptions: New amiodarone 200 mg tablet 200 mg PO DAILY Qty: 30 0RF ondansetron 4 mg tablet,disintegrating 4 mg PO Q8H PRN PRN (Reason: Nausea) Qty: 10 0RF No Action levothyroxine 25 mcg tablet 25 mcg PO DAILY aspirin [Adult Aspirin Regimen] 81 mg tablet,delayed release (DR/EC) 81 mg PO DAILY warfarin 4 mg tablet 4 mg PO DAILY ipratropium-albuterol 0.5 mg-3 mg(2.5 mg base)/3 mL solution for nebulization 3 ml inhalation Q6H amiodarone 200 mg tablet 200 mg PO DAILY citalopram 10 mg tablet 10 mg PO DAILY diltiazem HCl 120 mg capsule,extended release 24hr 120 mg PO BID lorazepam 1 mg tablet 1 mg PO DAILY methocarbamol 500 mg tablet 500 mg PO TID metoprolol tartrate 100 mg tablet 100 mg PO BID potassium chloride 20 mEq tablet,ER particles/crystals 20 meq PO DAILY pantoprazole 40 mg tablet,delayed release (DR/EC) 40 mg PO DAILY oxycodone 5 mg tablet PO rosuvastatin 40 mg tablet 40 mg PO DAILY furosemide 40 mg tablet 40 mg PO DAILY Qty: 90 3RF Primary Care Provider: Chino Patton Chi Referrals: Chino Patton Chi, MD [Primary Care Provider] - Florence Vizcaino PA [Med Staff - [facility]] - 3-5 Days Activity Restrictions/Additional Instructions: You arrived back in normal sinus rhythm. Blood pressure systolic 120s. Potassium 2.9. INR therapeutic at 2.9. Discussed with Dr. Mejía in the ER. Continue your potassium at home. Restart back on amiodarone at 200 mg daily. Follow-up as an outpatient. If symptoms recur and worsens return to the ED for reevaluation. Print Language: Bermudian Disposition Disposition: Home, Self Care Discharge Date/Time: 05/22/24 14:37
[2024-05-22 12:06] LABS: Absolute Lymphocyte Count 1.15 X10^3/uL (0.83-4.51); Absolute Neutrophil Count 2.3 X10^3/uL (2.0-7.7); Basophil# 0.04 X10^3/uL; Eosinophil# 0.29 X10^3/uL; Eosinophils% 6.9 % (0-5); Hematocrit 31.8 % (37-47); Hemoglobin 9.8 g/dL (12.0-15.0); Lymphocyte # 1.15 X10^3/ul (0.83-4.51); Lymphocyte % 27.4 % (19-41); Mean Corp Hgb Conc 30.8 g/dL (32-36); Mean Corpuscular Hgb 26.9 pg (27.0-32.0); Mean Corpuscular Volume 87.4 fL (81-99); Mean Platelet Vol. 9.2 fl (6.2-12.0); Monocyte# 0.44 X10^3/uL; Monocyte% 10.5 % (0-10); NRBC Flagged by Analyzer 0 % (0-5); Neutrophil # 2.26 X10^3/uL (2.7-7.7); Platelet Count 327 K/mm3 (150-450); RBC Distribution Width CV 16.2 % (11.6-14.6); RBC Distribution Width SD 51.8 fl (35.1-43.9); Red Blood Count 3.64 M/mm3 (4.2-5.4); White Blood Count 4.2 K/mm3 (4.4-11.0)
[2024-05-22 12:16] LABS: International Normalized Ratio 2.9; Prothrombin Time (Protime)PT. 29.7 SECONDS (11.7-14.9)
[2024-05-22 12:18] LABS: Anion Gap 6 (5-15); BUN 7 mg/dL (7-18); BUN/Creat Ratio 7.7 RATIO (10-20); Calcium,Total 9.2 mg/dL (8.5-10.1); Chloride 105 mmol/L (98-107); Creatinine, Serum 0.91 mg/dL (0.55-1.02); EST Glomerular Filtration Rate 67 mL/min (>60); Est Glom Filt Rate - Afr Amer 81 mL/min (>60); Estimated Creatinine Clearance 73.91 ml/min; Glucose 112 mg/dL (74-106); Potassium 2.9 mmol/L (3.5-5.1); Sodium Level 138 mmol/L (136-145); Troponin-I HS (w/2H Reflex) < 3 pg/mL (3.0-54.0)
[2024-05-22] MEDS: Potassium Chloride Oral Tablet 20 MEQ 40 MEQ PO (13:12)
[2024-05-22] MEDS: Amiodarone 200 MG Tablet PO (13:53)
[2024-05-22] MEDS: Ondansetron 4 MG/2 ML Vial IV (13:53)
[2024-05-22 13:57] LABS: Reflex Troponin-HS? (from REC) Y
[2024-05-22 14:34] LABS: Troponin-I HS < 3 pg/mL (3.0-54.0)
== END 2024-05-22 14:37 | disposition home or self-care (01) ==
PROVIDERS: Emergency Provider Emergency Medicine; PCP Family Medicine Geriatric Medicine; Visit Provider Emergency Medicine
DX: I48.0 Paroxysmal atrial fibrillation (principal); E87.6 Hypokalemia; I10 Essential (primary) hypertension; F17.290 Nicotine dependence, other tobacco product, uncomplicated; Z95.1 Presence of aortocoronary bypass graft; Z95.2 Presence of prosthetic heart valve; Z79.01 Long term (current) use of anticoagulants; Z79.82 Long term (current) use of aspirin; Z79.899 Other long term (current) drug therapy
CPT/HCPCS: 71045; 80048; 84484; 85025; 85610; 93005; 96374; 99283; A4216; J2405

== ENCOUNTER 2024-05-25 14:51 | Outpatient (RCR) | payer MEDICARE, SELFPAY ==
[2024-05-25 15:18] LABS: Prothrombin Time (Protime)PT. 46.2 SECONDS (11.7-14.9)
== END 2024-06-03 23:59 ==
LOC: POLAB3 14:51
PROVIDERS: PCP Family Medicine Geriatric Medicine; Referring Provider Family Medicine Geriatric Medicine; Visit Provider Family Medicine Geriatric Medicine
DX: I48.91 Unspecified atrial fibrillation (principal)
CPT/HCPCS: 36415; 85610

== ENCOUNTER 2024-05-26 11:43 | Outpatient (CLI) | payer MEDICARE, SELFPAY ==
[2024-05-26 12:15] VITALS: BP 124/63; PULSE 80; RESP 16; TEMP 36.6; O2SAT 97
[2024-05-26] MEDS: 0.9% NaCl Peripheral Flush Adult/Peds IV (12:18)
[2024-05-26] MEDS: 0.9% Normal Saline (1000mL) 1,000 ML 999 ML IV (12:18)
[2024-05-26 13:29] VITALS: BP 128/68; PULSE 78; TEMP 36.6
--- NOTE | 2024-05-26 14:06 | RAD_ITS ---
STUDY: X-RAY - RIGHT HAND REASON FOR EXAM: Female, 63 years old. Swelling and pain. TECHNIQUE: 3 view(s) of the hand. COMPARISON: None. FINDINGS: Osteopenia. Mild arthrosis of the radiocarpal articulation. Mild arthrosis of the distal radioulnar joint. Moderate arthrosis of the radial carpal row. Moderate to severe arthrosis of the first CMC joint. Moderate arthrosis of the MCP and IP joints. Normal soft tissues. RAD/Hand Min 3 Views IMPRESSION: Osteopenia with diffuse osteoarthritic changes most marked at the first CMC joint as described. No acute abnormality or erosive changes. Electronically Signed: Bob Luu MD at 14:56 EDT ,
== END 2024-05-26 23:59 | disposition home or self-care (01) ==
LOC: MEDOUTP 11:44
PROVIDERS: PCP Family Medicine Geriatric Medicine; Referring Provider Family Medicine Geriatric Medicine; Visit Provider Family Medicine Geriatric Medicine
DX: E86.0 Dehydration (principal); M79.89 Other specified soft tissue disorders; M79.641 Pain in right hand
CPT/HCPCS: 96360; 73130; J7030; A4216

== ENCOUNTER 2024-06-11 19:28 | Emergency (ER) | payer MEDICARE, SELFPAY ==
[2024-06-11 19:29] VITALS: BP 165/78; PULSE 89; RESP 16; TEMP 36.4; O2SAT 98; BMI 37.4
[2024-06-11 19:50] VITALS: O2SAT 98
--- NOTE | 2024-06-11 20:14 | EKG12_ITS ---
Test Reason : DYSRHYTHMIA Blood Pressure : / mmHG Vent. Rate : 085 BPM Atrial Rate : 085 BPM P-R Int : 162 ms QRS Dur : 086 ms QT Int : 418 ms P-R-T Axes : 071 011 061 degrees QTc Int : 497 ms Normal sinus rhythm Prolonged QT Abnormal ECG When compared with ECG of 22-MAY-2024 11:29, No significant change was found Confirmed by ALEJANDRO FLORES, DAISY ([id number]), editor in chief MATTEO MAYO ([id number]) on 06/13/2024 9:52:59 AM Referred By: Confirmed By:DAISY ALLEN MD
--- NOTE | 2024-06-11 20:20 | RAD_ITS ---
STUDY: X-RAY CHEST REASON FOR EXAM: Female, 63 years old. SOB TECHNIQUE: PA and lateral COMPARISON: May 22, 2024 FINDINGS: The lungs are clear and expanded. There is no demonstrated pleural abnormality. Postop change status post median sternotomy and aortic valve replacement and clipping of left atrial appendage Normal size heart. Normal mediastinum and wendy. Normal visualized pulmonary arteries. Normal visualized aortic arch and descending thoracic aorta. Dorsal spine and shoulders demonstrate degenerative change. Normal visualized ribs, clavicles, and shoulders. There is no demonstrated abnormality of the visualized soft tissue structures of the upper abdomen. RAD/Chest PA and Lateral IMPRESSION: Postop change. No acute cardiopulmonary pathology Electronically Signed: Rigo Colorado MD at 20:46 EDT ,
[2024-06-11 20:41] LABS: Absolute Lymphocyte Count 2.43 X10^3/uL (0.83-4.51); Absolute Neutrophil Count 3.6 X10^3/uL (2.0-7.7); Basophil# 0.04 X10^3/uL; Basophil% 0.5 % (0-1); Eosinophil# 0.54 X10^3/uL; Eosinophils% 7.2 % (0-5); Hematocrit 34.8 % (37-47); Hemoglobin 10.3 g/dL (12.0-15.0); Lymphocyte # 2.43 X10^3/ul (0.83-4.51); Lymphocyte % 32.4 % (19-41); Mean Corp Hgb Conc 29.6 g/dL (32-36); Mean Corpuscular Hgb 26.6 pg (27.0-32.0); Mean Corpuscular Volume 89.9 fL (81-99); Monocyte# 0.87 X10^3/uL; Monocyte% 11.6 % (0-10); NRBC Flagged by Analyzer 0 % (0-5); Neutrophil # 3.58 X10^3/uL (2.7-7.7); Neutrophil % 47.9 % (47-70); Platelet Count 303 K/mm3 (150-450); RBC Distribution Width CV 16.6 % (11.6-14.6); RBC Distribution Width SD 53.6 fl (35.1-43.9); Red Blood Count 3.87 M/mm3 (4.2-5.4); White Blood Count 7.5 K/mm3 (4.4-11.0)
[2024-06-11 21:05] LABS: Anion Gap 6 (5-15); BUN 19 mg/dL (7-18); BUN/Creat Ratio 17.9 RATIO (10-20); Calcium,Total 9.4 mg/dL (8.5-10.1); Chloride 104 mmol/L (98-107); Creatinine, Serum 1.06 mg/dL (0.55-1.02); EST Glomerular Filtration Rate 56 mL/min (>60); Est Glom Filt Rate - Afr Amer 68 mL/min (>60); Estimated Creatinine Clearance 63.68 ml/min; Glucose 110 mg/dL (74-106); Sodium Level 138 mmol/L (136-145); Troponin-I HS < 3 pg/mL (3.0-54.0)
[2024-06-11 21:07] VITALS: PULSE 80; RESP 18
[2024-06-11] MEDS: Ipratropium 0.5 MG/2.5 ML SOLUTION INHALATION (21:07)
[2024-06-11 21:15] LABS: International Normalized Ratio 2.5; Prothrombin Time (Protime)PT. 26.6 SECONDS (11.7-14.9)
[2024-06-11 21:25] LABS: Blood Gas Specimen Type VEN; O2 Delivery Device Room Air; SITE Not entered; VBG BASE EXCESS 5 mmol/L (-1.0-3.5); VBG Bicarbonate 30 mmol/L (22-26); VBG PO2 34 mmHg (25-40); VBG SO2 66 % (50-70); VBG TCO2 31 mmol/L (23-33); VBG pCO2 47.1 mmHg (41-51); VBG pH 7.41 (7.32-7.42)
--- NOTE | 2024-06-11 21:27 | ED.VIS.DYS ---
HPI History of Present Illness Chief Complaint: Shortness of Breath Informant: patient Narrative Narrative: Patient is a 63-year-old female with history of hypothyroidism, hypertension, proximal atrial fibrillation, mechanical valve/status post CABG on chronic Coumadin therapy presenting from home for worsening shortness of breath. Patient states she has been having worsening shortness of breath for the past few days. Is worse when she lays flat. She notes that she has started coughing and has had some yellow phlegm production. She voices concern because she has had a 10 pound weight gain over the past 10 days. She saw the cardiology nurse practitioner on Wednesday (2 days ago) who did not seem concerned about this. Patient states she just feels full and thought she might be hold onto fluids and she did take an extra Lasix. Denies any swelling of her legs. Denies any chest pain. Tried multiple albuterol treatments with no relief at home. Came in for further evaluation. No report of any fevers or chills. [facility] Medical History Paroxysmal atrial fibrillation Pneumonia Thoracic aortic aneurysm Aortic regurgitation First detected episode of atrial fibrillation Hypertension Atrial fibrillation with rapid ventricular response Reactive airway disease Acute dyspnea Other intervertebral disc degeneration, lumbar region Other intervertebral disc degeneration, lumbosacral region Radiculopathy, lumbar region Radiculopathy, lumbosacral region Aortic aneurysm Obesity (BMI 30-39.9) ADHD (attention deficit hyperactivity disorder) Hypothyroidism HTN (hypertension) Home Medications ?Medication ?Instructions ?Recorded ?Last Taken ?Type furosemide 40 mg tablet 40 mg PO DAILY leg swelling/weight 09/29/23 Unknown Rx gain #90 tabs levothyroxine 25 mcg tablet 25 mcg PO DAILY 02/03/24 Unknown History warfarin 4 mg tablet 4 mg PO DAILY 05/17/24 Unknown History amiodarone 200 mg tablet 200 mg PO DAILY 05/22/24 Unknown History ipratropium 0.5 mg-albuterol 3 mg 3 ml inhalation Q6H 05/22/24 Unknown History (2.5 mg base)/3 mL nebulization soln methocarbamol 500 mg tablet 500 mg PO TID 05/22/24 Unknown History metoprolol tartrate 100 mg tablet 100 mg PO BID 05/22/24 Unknown History potassium chloride 20 mEq 20 meq PO DAILY 05/22/24 Unknown History tablet,extended release(part/cryst) ondansetron 4 mg disintegrating 4 mg PO Q8H PRN PRN Nausea #10 tabs 06/08/24 Unknown Rx tablet azithromycin 250 mg tablet 250 mg PO DAILY #4 TABLETS 06/11/24 Unknown Rx codeine 10 mg-guaifenesin 200 mg/5 5 ml PO Q6H PRN cough #200 mL 06/11/24 Unknown Rx mL oral liquid ipratropium bromide 0.02 % 2.5 ml inhalation Q6H PRN 06/11/24 Unknown Rx solution for inhalation shortness of breath or wheezing #62.5 mL prednisone 20 mg tablet 40 mg (2 x 20 mg) PO DAILY #8 tabs 06/11/24 Unknown Rx Allergy/AdvReac Type Severity Reaction Status Date / Time Influenza Virus Vaccines Allergy Mild PT UNABLE Verified 06/11/24 19:32 TO RESPOND-NEEDS F/U hydroxychloroquine (From Allergy Hives Verified 06/11/24 19:32 Plaquenil) nalbuphine (From Nubain) Allergy Itching Verified 06/11/24 19:32 Family History Father Cancer Mother Cardiovascular disease Sister Diabetes Mother Hypertension Surgical History S/P CABG x 1 H/O mechanical aortic valve replacement partial ovary removed Social History household members: spouse and children Smoking Status: Former smoker ROS ROS ED Constitutional Constitutional ED: Denies chills or fever(s) ENT ENT ED: Denies ear pain or rhinorrhea Cardiovascular Cardiovascular: Denies chest pain or palpitations Respiratory/Chest Respiratory/Chest: Reports cough, dyspnea, dyspnea on exertion and sputum Gastrointestinal Gastrointestinal: Denies nausea or vomiting Musculoskeletal Musculoskeletal: Denies arthralgias or myalgias Integumentary Denies rash Neurologic Neurologic: Denies headache(s) Hematologic/Lymphatic Hematologic/Lymphatic: Reports easy bleeding and easy bruising EXAM Physical Exam Const Vital Signs: 06/11/24 19:29 06/11/24 19:50 06/11/24 21:07 Temperature 97.6 F L Temperature Source Temporal Pulse Rate 89 80 Respiratory Rate 16 18 Respiratory Effort Non-Labored Short of Breath Respiratory Depth Normal Respiratory Pattern Normal Normal Blood Pressure 165/78 H Blood Pressure Mean 107 Pulse Ox 98 Oxygen Delivery Method Room Air Room Air 06/11/24 21:29 Temperature Temperature Source Pulse Rate 87 Respiratory Rate 18 Respiratory Effort Respiratory Depth Respiratory Pattern Blood Pressure 128/70 H Blood Pressure Mean 89 Pulse Ox 98 Oxygen Delivery Method Room Air Positive well nourished, well developed and obese General Appearance ED: well developed Nutritional Appearance: obese HEENT Reports TM's clear and moist mucous membranes Tympanic Membrane ED: Yes TM's clear Eyes PERRL and EOMs intact bilaterally Neck supple and no JVD Resp Resp Narrative: Decreased breath sounds at the bases. No crackles appreciated. No wheezing or rhonchi appreciated. Mild tachypnea present. Patient is speaking in prolonged sentences without having to take of breath. Cardio regular rate and regular rhythm Cardio Narrative: Systolic murmur with a click appreciated consistent GI non-tender and non-distended Extremity normal to inspection Neuro oriented x3 Motor Exam: general weakness Psych mental status grossly normal Skin no wounds and skin turgor normal MDM MDM MDM Narrative Medical decision making narrative: Patient evaluated for increased shortness of breath. She feels that she is wheezing and coughed up some sputum. She also is concerned because she has had some weight gain. Differential includes CHF exacerbation, COPD exacerbation, pneumonia, asthma exacerbation, bronchitis, symptomatic anemia. The patient is given breathing treatment of ipratropium as she has previously done albuterol treatments and did not feel like they were helping and does not want more albuterol because of my make her shaky. Patient is improvement with ipratropium.Lab work largely unremarkable. Hemoglobin is mildly low at 10.3 but this appears to be the patient's baseline. She is therapeutic on her INR of 2.5. VBG obtained does not show any decompensated acidosis. pH is normal. Creatinine mildly elevated but at her baseline (was 1.06). Troponin is negative. Low suspicion for acute cardiac process. BNP is also normal at 67 which is also her baseline. Chest x-ray viewed by myself as well as radiology does not show any acute process. COVID swab is negative. Suspect patient has some sort of viral illness that is causing her cough given her new mucus production. Will cover with steroids and azithromycin. Will give a prescription for ipratropium since she seem to respond well to this. Will also give a prescription for Robitussin AC which she is requesting. Is given return precautions. Patient is ambulated in the ER and does not desaturate tolerates this well. She is clinically improved on repeat evaluation. Will be discharged home. History & Record Review Additional record(s) reviewed:: Prior outpatient record (Cardiology note on 06/07. Is interested in cardiac rehab. Is recovering from CT surgery for antegrade dilation and severe AR with CABG x 1. This is performed by Dr. Dwyer at [facility].) Lab Data Attestation: I reviewed the patient's lab results. Labs: Laboratory Results - last 24 hr 06/11/24 19:49 WBC 7.5 RBC 3.87 L Hgb 10.3 L Hct 34.8 L MCV 89.9 MCH 26.6 L MCHC 29.6 L RDW Std Deviation 53.6 H RDW Coeff of Mango 16.6 H Plt Count 303 MPV 10.0 Immature Gran % (Auto) 0.400 Neut % (Auto) 47.9 Lymph % (Auto) 32.4 Cooke % (Auto) 11.6 H Eos % (Auto) 7.2 H Baso % (Auto) 0.5 Absolute Neuts (auto) 3.6 Absolute Lymphs (auto) 2.43 Nucleated RBC % 0 PT 26.6 H INR 2.5 Sodium 138 Potassium 4.0 Chloride 104 Carbon Dioxide 28.0 Anion Gap 6 BUN 19 H Creatinine 1.06 H Estim Creat Clear Calc 63.68 Est GFR (MDRD) Af Amer 68 Est GFR (MDRD) Non-Af 56 L BUN/Creatinine Ratio 17.9 Glucose 110 H Calcium 9.4 Troponin I High Sens < 3 L B-Natriuretic Peptide 67.0 ABG Data ABG results: ABG 06/11/24 21:22 Specimen Type DARBY Sample Site Not entered VBG pH 7.41 VBG pO2 34 VBG HCO3 30 H VBG Total CO2 31 VBG O2 Sat (Calc) 66 VBG Base Excess 5 H POC Mix VBG pCO2 Pt Tmp 47.1 O2 Delivery Device Room Air Radiography Chest X-Ray - ED: 2 View, Read by ED Physician, Read by Radiologist and No Acute Disease Diagnostic Testing: Clinical Impression(s) from Imaging Studies Chest X-Ray 06/11/24 20:20 IMPRESSION: Postop change. No acute cardiopulmonary pathology Electronically Signed: Rigo Colorado MD at 20:46 EDT , Rhythm Strip Rhythm Strip: Sinus Rhythm Rate: 85 Ectopy: None EKG Initial EKG: Attestation: I personally reviewed and interpreted this EKG as follows: Interpretation: Sinus Rhythm Comments: Normal sinus rhythm at a rate of 85 bpm Normal axis Prolonged QTc at [address] segments Prior EKG tracings: available for review Prior: Unchanged Differential Diagnosis Chest pain/SOB: pulmonary embolism Reason(s) PE less likely: Positive for D-Dimer negative, not tachycardic and not hypoxic, ACS ACS: Positive for no evidence of ACS based on cardiac biomarkers, EKG without ischemia and history not suggestive of ischemia pain, pneumonia Reason(s) pneumonia less likely: Positive for no infiltrate on CXR, no elevation in WBC count and no noted fever and CHF Reason(s) CHF less likely: Positive for no significant peripheral edema, no evidence of fluid overload on CXR and BtNP not significantly elevated over normal/baseline Discharge Plan Triage Chief Complaint: Shortness of Breath ED Provider: Anabelle Ortega Dx/Rx/DC Orders Clinical Impression: Acute dyspnea, Wheezing, Cough, Anticoagulant long-term use Instructions: ED Bronchitis with Wheezing (Adult), ED Dyspnea Prescriptions: New prednisone 20 mg tablet 40 mg PO DAILY Qty: 8 0RF azithromycin 250 mg tablet 250 mg PO DAILY Qty: 4 0RF codeine-guaifenesin 10-200 mg/5 mL liquid 5 ml PO Q6H PRN (Reason: cough) Qty: 200 0RF ipratropium bromide 0.02 % solution 2.5 ml inhalation Q6H PRN (Reason: shortness of breath or wheezing) Qty: 62.5 0RF No Action levothyroxine 25 mcg tablet 25 mcg PO DAILY ondansetron 4 mg tablet,disintegrating 4 mg PO Q8H PRN PRN (Reason: Nausea) Qty: 10 0RF warfarin 4 mg tablet 4 mg PO DAILY ipratropium-albuterol 0.5 mg-3 mg(2.5 mg base)/3 mL solution for nebulization 3 ml inhalation Q6H amiodarone 200 mg tablet 200 mg PO DAILY methocarbamol 500 mg tablet 500 mg PO TID metoprolol tartrate 100 mg tablet 100 mg PO BID potassium chloride 20 mEq tablet,ER particles/crystals 20 meq PO DAILY furosemide 40 mg tablet 40 mg PO DAILY Qty: 90 3RF Primary Care Provider: Chino Patton Chi Referrals: Chino Patton Chi, MD [Primary Care Provider] - Activity Restrictions/Additional Instructions: I suspect you have some type of bronchitis or possibly early pneumonia. Your white blood cell count and your chest x-ray were largely normal. No signs of acute fluid overload on your chest x-ray or your blood work. No signs of heart distress. Your INR today was 2.5. Take medication as prescribed. Follow-up with your primary care doctor. Return to the ER if you have a difficult time breathing or worsening of your symptoms. Print Language: Maltese Disposition Disposition: Home, Self Care
[2024-06-11 21:29] VITALS: BP 128/70; PULSE 87; RESP 18; O2SAT 98
[2024-06-11 21:42] VITALS: O2SAT 98
[2024-06-11] MEDS: predniSONE 20 MG Tablet 60 MG PO (22:30)
[2024-06-11] MEDS: Azithromycin 250 MG Tablet 500 MG PO (22:30)
[2024-06-11 22:31] VITALS: BP 116/74; PULSE 96; RESP 24; TEMP 36.6; O2SAT 97
== END 2024-06-11 22:47 | disposition home or self-care (01) ==
PROVIDERS: Emergency Provider Emergency Medicine; PCP Family Medicine Geriatric Medicine; Visit Provider Emergency Medicine
DX: R06.02 Shortness of breath (principal); I48.0 Paroxysmal atrial fibrillation; R06.2 Wheezing; R05.9 Cough, unspecified; I10 Essential (primary) hypertension; Z95.1 Presence of aortocoronary bypass graft; Z95.2 Presence of prosthetic heart valve; Z79.01 Long term (current) use of anticoagulants; Z79.899 Other long term (current) drug therapy; Z87.891 Personal history of nicotine dependence
CPT/HCPCS: 71046; 80048; 82803; 83880; 84484; 85025; 85610; 87631; 93005; 94640; 99285; A4216

== ENCOUNTER → 2024-06-28 | Outpatient (CLI) | payer MEDICARE, SELFPAY ==
[2024-06-28 15:21] LABS: Absolute Lymphocyte Count 1.69 X10^3/uL (0.83-4.51); Absolute Neutrophil Count 3.9 X10^3/uL (2.0-7.7); Basophil# 0.08 X10^3/uL; Basophil% 1.2 % (0-1); Eosinophils% 7.4 % (0-5); Hematocrit 34.3 % (37-47); Hemoglobin 10.1 g/dL (12.0-15.0); Lymphocyte # 1.69 X10^3/ul (0.83-4.51); Lymphocyte % 24.9 % (19-41); Mean Corp Hgb Conc 29.4 g/dL (32-36); Mean Corpuscular Volume 88.4 fL (81-99); Mean Platelet Vol. 9.4 fl (6.2-12.0); Monocyte# 0.57 X10^3/uL; Monocyte% 8.4 % (0-10); NRBC Flagged by Analyzer 0 % (0-5); Neutrophil # 3.91 X10^3/uL (2.7-7.7); Neutrophil % 57.5 % (47-70); Platelet Count 395 K/mm3 (150-450); RBC Distribution Width CV 15.7 % (11.6-14.6); RBC Distribution Width SD 50.9 fl (35.1-43.9); Red Blood Count 3.88 M/mm3 (4.2-5.4); White Blood Count 6.8 K/mm3 (4.4-11.0)
[2024-06-28 15:26] LABS: International Normalized Ratio 1.7; Prothrombin Time (Protime)PT. 20.3 SECONDS (11.7-14.9)
[2024-06-28 16:00] LABS: AST(SGOT) 18 U/L (15-37); Alanine Aminotransfer ALT/SGPT 21 U/L (13-56); Albumin, Serum 3.9 g/dL (3.2-5.0); Alkaline Phosphatase 102 U/L (45-117); Anion Gap 5 (5-15); BUN 17 mg/dL (7-18); BUN/Creat Ratio 17.5 RATIO (10-20); Calcium,Total 9.5 mg/dL (8.5-10.1); Chloride 105 mmol/L (98-107); Cholesterol 268 mg/dL (200); Creatinine, Serum 0.97 mg/dL (0.55-1.02); EST Glomerular Filtration Rate 62 mL/min (>60); Est Glom Filt Rate - Afr Amer 75 mL/min (>60); Globulin 4.1 g/dL (2.2-4.2); Glucose 91 mg/dL (74-106); High Density Lipoprotein 65 mg/dL; Potassium 4.4 mmol/L (3.5-5.1); Sodium Level 139 mmol/L (136-145); Triglycerides 116 mg/dL; Very Low Density Lipoprotein 23 mg/dL (5-40)
== END | disposition home or self-care (01) ==
LOC: POLAB3 14:44
PROVIDERS: PCP Family Medicine Geriatric Medicine; Visit Provider Family Medicine Geriatric Medicine
DX: I48.91 Unspecified atrial fibrillation (principal); E78.5 Hyperlipidemia, unspecified; R53.83 Other fatigue
CPT/HCPCS: 36415; 80053; 80061; 84443; 85025; 85610

== ENCOUNTER → 2024-08-21 | Outpatient (CLI) | payer MEDICARE, SELFPAY ==
[2024-05-29 16:05] LABS: Absolute Lymphocyte Count 1.34 X10^3/uL (0.83-4.51); Absolute Neutrophil Count 2.5 X10^3/uL (2.0-7.7); Basophil# 0.03 X10^3/uL; Basophil% 0.7 % (0-1); Eosinophil# 0.17 X10^3/uL; Eosinophils% 3.7 % (0-5); Hematocrit 32.9 % (37-47); Lymphocyte # 1.34 X10^3/ul (0.83-4.51); Lymphocyte % 29.1 % (19-41); Mean Corp Hgb Conc 30.4 g/dL (32-36); Mean Corpuscular Hgb 26.5 pg (27.0-32.0); Mean Corpuscular Volume 87.3 fL (81-99); Mean Platelet Vol. 9.7 fl (6.2-12.0); Monocyte% 10.9 % (0-10); NRBC Flagged by Analyzer 0 % (0-5); Neutrophil # 2.53 X10^3/uL (2.7-7.7); Neutrophil % 54.9 % (47-70); Platelet Count 359 K/mm3 (150-450); RBC Distribution Width CV 16.3 % (11.6-14.6); RBC Distribution Width SD 52.1 fl (35.1-43.9); Red Blood Count 3.77 M/mm3 (4.2-5.4); White Blood Count 4.6 K/mm3 (4.4-11.0)
[2024-05-29 16:16] LABS: Erythrocyte Sedimentation Rate 25 mm/hr (0-30); International Normalized Ratio 2.6; Prothrombin Time (Protime)PT. 27.5 SECONDS (11.7-14.9)
[2024-05-29 16:45] LABS: Anion Gap 6 (5-15); BUN 9 mg/dL (7-18); BUN/Creat Ratio 8.8 RATIO (10-20); Calcium,Total 9.5 mg/dL (8.5-10.1); Chloride 105 mmol/L (98-107); Creatinine, Serum 1.02 mg/dL (0.55-1.02); EST Glomerular Filtration Rate 59 mL/min (>60); Est Glom Filt Rate - Afr Amer 71 mL/min (>60); Glucose 136 mg/dL (74-106); Potassium 3.2 mmol/L (3.5-5.1); Sodium Level 137 mmol/L (136-145)
== END | disposition home or self-care (01) ==
LOC: LAB 11:12
PROVIDERS: PCP Family Medicine Geriatric Medicine; Referring Provider Family Medicine Geriatric Medicine; Visit Provider Family Medicine Geriatric Medicine
DX: E78.5 Hyperlipidemia, unspecified (principal); M79.641 Pain in right hand; M79.89 Other specified soft tissue disorders; E86.0 Dehydration
CPT/HCPCS: 36415; 80048; 85025; 85610; 85652; 86140

== ENCOUNTER 2024-09-13 11:57 | Outpatient (RCR) | payer MEDICARE, SELFPAY ==
[2024-09-13 12:31] LABS: International Normalized Ratio 2.3; Prothrombin Time (Protime)PT. 25.5 SECONDS (11.7-14.9)
== END 2024-09-13 18:00 | disposition home or self-care (01) ==
LOC: LAB 11:57
PROVIDERS: PCP Family Medicine Geriatric Medicine; Referring Provider Internal Medicine Cardiovascular Disease; Visit Provider Internal Medicine Cardiovascular Disease
DX: Z95.2 Presence of prosthetic heart valve; E03.9 Hypothyroidism, unspecified
CPT/HCPCS: 36415; 84443; 85610

== ENCOUNTER → 2024-09-13 | Outpatient (CLI) | payer MEDICARE, SELFPAY ==
--- NOTE | 2024-09-13 14:02 | NEURO ---
NCS and/or EMG Patient Report Ordering Doctor: Chino Patton Chi DATE OF SERVICE: 09/13/24 Janine presents for electrodiagnostic testing of the lower limbs. She reports numbness and tingling in both legs, primarily below the knees. She has intermittent low back pain with history of spinal surgery. Electrodiagnostic findings: Right peroneal motor nerve demonstrates normal distal latency, amplitude with a drop in conduction across the fibular head. Left peroneal motor nerve demonstrates normal distal latency, amplitude and conduction velocity. Tibial motor responses within normal limits bilaterally. Normal tibial and peroneal F?waves. Borderline prolonged H?reflex bilaterally. Prolonged sural latency is noted bilaterally. Normal superficial peroneal response bilaterally. Needle EMG testing was performed the lower limbs. All muscles tested showed no evidence of denervation with normal motor unit action potentials. Electrodiagnostic impression: This an abnormal study in the lower limbs 1. Electrodiagnostic findings suggestive of a mild peripheral polyneuropathy in the lower limbs, sensory greater than motor. 2. No electrodiagnostic evidence is noted for lumbosacral radiculopathy. Multi Select Codes Neurology Neurology Interp Codes: 59477-67 Musc test done w/n test comp (interp) (2) and 95151-29 Nrv cndj test 9-10 studies (interp)
== END | disposition home or self-care (01) ==
LOC: PSN 11:58
PROVIDERS: PCP Family Medicine Geriatric Medicine; Referring Provider Family Medicine Geriatric Medicine; Visit Provider Family Medicine Geriatric Medicine
DX: M79.605 Pain in left leg (principal); I77.9 Disorder of arteries and arterioles, unspecified; G62.9 Polyneuropathy, unspecified
CPT/HCPCS: 95886; 95911

== ENCOUNTER → 2024-09-19 | Outpatient (CLI) | payer MEDICARE, SELFPAY ==
[2024-09-19 17:06] LABS: Absolute Lymphocyte Count 1.85 X10^3/uL (0.83-4.51); Absolute Neutrophil Count 2.9 X10^3/uL (2.0-7.7); Basophil# 0.05 X10^3/uL; Basophil% 0.9 % (0-1); Eosinophil# 0.38 X10^3/uL; Eosinophils% 6.7 % (0-5); Hematocrit 33.1 % (37-47); Hemoglobin 10.4 g/dL (12.0-15.0); Lymphocyte # 1.85 X10^3/ul (0.83-4.51); Lymphocyte % 32.5 % (19-41); Mean Corp Hgb Conc 31.4 g/dL (32-36); Mean Corpuscular Hgb 27.4 pg (27.0-32.0); Mean Corpuscular Volume 87.3 fL (81-99); Mean Platelet Vol. 9.2 fl (6.2-12.0); Monocyte# 0.52 X10^3/uL; Monocyte% 9.1 % (0-10); NRBC Flagged by Analyzer 0 % (0-5); Neutrophil # 2.88 X10^3/uL (2.7-7.7); Neutrophil % 50.6 % (47-70); Platelet Count 288 K/mm3 (150-450); RBC Distribution Width CV 19.2 % (11.6-14.6); Red Blood Count 3.79 M/mm3 (4.2-5.4); White Blood Count 5.7 K/mm3 (4.4-11.0)
[2024-09-19 17:42] LABS: ALB/GLOB Ratio 0.8 RATIO (0.9-2.4); AST(SGOT) 17 U/L (15-37); Alanine Aminotransfer ALT/SGPT 15 U/L (13-56); Albumin, Serum 3.4 g/dL (3.2-5.0); Alkaline Phosphatase 105 U/L (45-117); Anion Gap 3 (5-15); BUN 13 mg/dL (7-18); BUN/Creat Ratio 17.3 RATIO (10-20); Calcium,Total 9.4 mg/dL (8.5-10.1); Chloride 108 mmol/L (98-107); Cholesterol 251 mg/dL (200); Creatinine, Serum 0.75 mg/dL (0.55-1.02); EST Glomerular Filtration Rate 83 mL/min (>60); Est Glom Filt Rate - Afr Amer 101 mL/min (>60); Globulin 4.2 g/dL (2.2-4.2); Glucose 85 mg/dL (74-106); High Density Lipoprotein 56 mg/dL; Potassium 4.1 mmol/L (3.5-5.1); Protein, Total 7.6 g/dL (6.4-8.2); Sodium Level 139 mmol/L (136-145); Triglycerides 234 mg/dL; Very Low Density Lipoprotein 47 mg/dL (5-40)
== END | disposition home or self-care (01) ==
LOC: LAB 16:45
PROVIDERS: PCP Family Medicine Geriatric Medicine; Visit Provider Family Medicine Geriatric Medicine
DX: R53.83 Other fatigue (principal); Z68.41 Body mass index [BMI] 40.0-44.9, adult
CPT/HCPCS: 36415; 80053; 80061; 84443; 85025

== ENCOUNTER 2024-10-18 13:32 | Outpatient (RCR) | payer MEDICARE, SELFPAY ==
[2024-10-18 13:46] LABS: INR Fingerstick 1.5; Prothrombin Time Fingerstick 16.1 SEC (11.7-14.9)
== END 2024-10-18 18:00 | disposition home or self-care (01) ==
LOC: LAB 13:32
PROVIDERS: PCP Family Medicine Geriatric Medicine; Referring Provider Internal Medicine Cardiovascular Disease; Visit Provider Internal Medicine Cardiovascular Disease
DX: E03.9 Hypothyroidism, unspecified (principal); Z95.2 Presence of prosthetic heart valve
CPT/HCPCS: 36416; 85610

== ENCOUNTER → 2024-10-18 | Outpatient (CLI) | payer MEDICARE, SELFPAY ==
--- NOTE | 2024-10-18 14:32 | NEURO_ITS ---
NCS and/or EMG Patient Report Ordering Doctor: Chino Patton Chi DATE OF SERVICE: 10/18/24 Janine presents with complaints of numbness and tingling in both hands. Electrodiagnostic findings: Right median motor nerve demonstrates normal distal latency, amplitude and conduction velocity. Left median motor nerve demonstra dulce normal distal latency, amplitude and conduction velocity. Ulnar motor response is normal bilaterally. Prolonged median sensory latency at the wrist bilaterally. Normal median and ulnar F?waves. Needle EMG testing was performed the upper limbs. All muscles tested showed no evidence of denervation with normal motor unit action potentials. Electrodiagnostic impression: This is an abnormal study in the upper limbs 1. Electrodiagnostic findings suggestive of bilateral median mononeuropathy. This is consistent with a mild bilateral carpal tunnel syndrome. Multi Select Codes Neurology Neurology Interp Codes: 38274-67 Musc test done w/n test comp (interp) (2) and 25307-21 Nrv cndj test 11-12 studies (interp)
== END | disposition home or self-care (01) ==
LOC: PSN 12:22
PROVIDERS: PCP Family Medicine Geriatric Medicine; Referring Provider Family Medicine Geriatric Medicine; Visit Provider Family Medicine Geriatric Medicine
DX: R20.0 Anesthesia of skin (principal)
CPT/HCPCS: 95886; 95912

== ENCOUNTER 2024-12-26 13:36 | Outpatient (RCR) | payer MEDICARE, SELFPAY ==
[2024-12-26 14:26] LABS: Absolute Lymphocyte Count 1.88 X10^3/uL (0.83-4.51); Absolute Neutrophil Count 3.6 X10^3/uL (2.0-7.7); Basophil# 0.04 X10^3/uL; Basophil% 0.6 % (0-1); Eosinophil# 0.36 X10^3/uL; Eosinophils% 5.5 % (0-5); Hematocrit 35.7 % (37-47); Hemoglobin 11.3 g/dL (12.0-15.0); Lymphocyte # 1.88 X10^3/ul (0.83-4.51); Lymphocyte % 28.6 % (19-41); Mean Corp Hgb Conc 31.7 g/dL (32-36); Mean Corpuscular Hgb 29.5 pg (27.0-32.0); Mean Corpuscular Volume 93.2 fL (81-99); Mean Platelet Vol. 9.6 fl (6.2-12.0); Monocyte# 0.64 X10^3/uL; Monocyte% 9.7 % (0-10); NRBC Flagged by Analyzer 0 % (0-5); Neutrophil # 3.64 X10^3/uL (2.7-7.7); Neutrophil % 55.3 % (47-70); Platelet Count 330 K/mm3 (150-450); RBC Distribution Width CV 16.3 % (11.6-14.6); RBC Distribution Width SD 55.3 fl (35.1-43.9); Red Blood Count 3.83 M/mm3 (4.2-5.4); White Blood Count 6.6 K/mm3 (4.4-11.0)
[2024-12-26 14:33] LABS: International Normalized Ratio 1.5; Prothrombin Time (Protime)PT. 18.9 SECONDS (11.7-14.9)
[2024-12-27 01:10] LABS: ALB/GLOB Ratio 1.2 RATIO (0.9-2.4); AST(SGOT) 24 U/L (<=31); Alanine Aminotransfer ALT/SGPT 9 U/L (<=34); Albumin, Serum 4.4 g/dL (3.4-4.8); Alkaline Phosphatase 84 U/L (35-104); Anion Gap 12 (5-15); BUN 19 mg/dL (4-19); BUN/Creat Ratio 28.4 RATIO (10-20); Calcium,Total 7.4 mg/dL (7.6-11.0); Carbon Dioxide 20.4 mmol/L (21.0-32.0); Chloride 105 mmol/L (98-108); Cholesterol 236 mg/dL (<=200); Creatinine, Serum 0.68 mg/dL (0.70-1.20); EST Glomerular Filtration Rate 99 (>60); Globulin 3.6 g/dL (2.2-4.2); Glucose 95 mg/dL (70-99); High Density Lipoprotein 47 mg/dL; Low Density Lipoprotein Calc. 155 mg/dL; Potassium 4.6 mmol/L (3.3-5.1); Protein, Total 7.9 g/dL (5.9-8.4); Sodium Level 138 mmol/L (133-145); Total Bilirubin 0.34 mg/dL (0.00-1.30); Triglycerides 172 mg/dL; Very Low Density Lipoprotein 34 mg/dL (5-40); cholesterol:hdl ratio screen 5.02
== END 2024-12-26 18:00 | disposition home or self-care (01) ==
LOC: LAB 13:36
PROVIDERS: PCP Family Medicine Geriatric Medicine; Referring Provider Family Medicine Geriatric Medicine; Visit Provider Family Medicine Geriatric Medicine
DX: R53.83 Other fatigue (principal); E78.5 Hyperlipidemia, unspecified; I48.91 Unspecified atrial fibrillation; E03.9 Hypothyroidism, unspecified
CPT/HCPCS: 36415; 80053; 80061; 84443; 85025; 85610

== ENCOUNTER → 2025-01-03 | Outpatient (CLI) | payer MEDICARE, SELFPAY ==
--- NOTE | 2025-01-03 15:55 | RAD_ITS ---
EXAM: XR Lumbosacral Spine, 2 or 3 Views CLINICAL INDICATION: POSTLAMINECTOMY SYNDROME, NOT ELSEWHERE CLASSIFIED TECHNIQUE: Frontal and lateral views of the lumbar spine and sacrum. COMPARISON: No relevant prior studies available. FINDINGS: VERTEBRAE: Status post posterior fusion of L4-S1. Intact hardware. Anatomic position. Grade 1 anterior spondylolisthesis L3 over L4. No acute fracture. SACRUM/COCCYX: Unremarkable as visualized. No acute fracture. DISC SPACES: See above. SOFT TISSUES: Unremarkable. RAD/Lumbar Spine 2 or 3 Views IMPRESSION: Postoperative changes as above. Reading Location: [facility]
== END | disposition home or self-care (01) ==
LOC: RAD 15:52
PROVIDERS: PCP Family Medicine Geriatric Medicine; Referring Provider Anesthesiology Pain Medicine; Visit Provider Anesthesiology Pain Medicine
DX: M96.1 Postlaminectomy syndrome, not elsewhere classified (principal)
CPT/HCPCS: 72100

== ENCOUNTER 2025-01-25 14:43 | Outpatient (RCR) | payer MEDICARE, SELFPAY ==
[2025-01-03 11:53] LABS: INR Fingerstick 1.9; Prothrombin Time Fingerstick 21.4 SEC (11.7-14.9)
[2025-01-09 13:16] LABS: INR Fingerstick 3.1; Prothrombin Time Fingerstick 32.3 SEC (11.7-14.9)
[2025-01-19 13:41] LABS: Prothrombin Time (Protime)PT. 62.6 SECONDS (11.7-14.9)
[2025-01-19 14:10] LABS: International Normalized Ratio 7.1
[2025-01-25 14:53] LABS: Prothrombin Time Fingerstick 21.9 SEC (11.7-14.9)
[2025-01-31 13:07] LABS: INR Fingerstick 1.8; Prothrombin Time Fingerstick 20.4 SEC (11.7-14.9)
[2025-01-31 17:10] LABS: AST(SGOT) 22 U/L (<=31); Alanine Aminotransfer ALT/SGPT 15 U/L (<=34)
== END 2025-01-31 18:00 | disposition home or self-care (01) ==
LOC: LAB 14:43
PROVIDERS: Internal Medicine Clinical Cardiac Electrophysiology; PCP Family Medicine Geriatric Medicine; Referring Provider Family Medicine Geriatric Medicine; Visit Provider Family Medicine Geriatric Medicine
DX: Z95.2 Presence of prosthetic heart valve; I48.0 Paroxysmal atrial fibrillation
CPT/HCPCS: 36415; 36416; 84443; 84450; 84460; 85610

== ENCOUNTER → 2025-01-25 | Outpatient (CLI) | payer MEDICARE, SELFPAY ==
--- NOTE | 2025-01-25 13:57 | ECHOD_ITS ---
Reason For Study Reason For Study: PROSTHETIC AORTIC VALVE Procedure This was a 2D Doppler, Color Flow transthoracic echocardiogram. The study was technically difficult. Due to OHS. Left Ventricle Normal size and thickness. The LV systolic function is normal. EF is 60 %. No evidence for diastolic dysfunction. Right Ventricle Normal right ventricle. Atria The left atrium is mildly enlarged. The right atrium is moderately enlarged. Mitral Valve Moderate mitral annular calcification. Mild (1+) mitral valve insufficiency. Tricuspid Valve Moderate (2+) tricuspid valve insufficiency. Normal pulmonary artery pressure. Aortic Valve Trivial to mild mechanical prosthetic aortic valvular or perivalvular leak. Recommend cardiac MRI or MERARI for further evaluation. Pulmonic Valve The pulmonic valve is not well visualized. Great Vessels Mildly dilated aortic root. Pericardium/Pleural No pericardial effusion. MMode/2D Measurements & Calculations LVIDd: 4.9 cm IVSd: 1.1 cm Ao root diam: 3.7 cm LVIDs: 3.1 cm LVPWd: 1.1 cm RVDd: 3.9 cm FS: 35.3 % LAV(MOD-bp): 47.2 ml LVAd ap4: 25.1 cm2 LVAd ap2: 24.6 cm2 LAV(MOD-bp) Indexed: 23.0 ml/m2 LVLd ap4: 7.0 cm LVLd ap2: 7.3 cm LAV(MOD-sp2): 49.1 ml EDV(MOD-sp4): 72.4 ml EDV(MOD-sp2): 70.3 ml LAV(MOD-sp4): 42.8 ml EDV(sp4-el): 76.1 ml EDV(sp2-el): 70.4 ml LVAs ap4: 13.0 cm2 LVAs ap2: 13.8 cm2 LVLs ap4: 5.9 cm LVLs ap2: 6.0 cm ESV(MOD-sp4): 25.4 ml ESV(MOD-sp2): 28.0 ml ESV(sp4-el): 24.3 ml ESV(sp2-el): 26.9 ml EF(MOD-sp4): 65.0 % EF(MOD-sp2): 60.2 % EF(sp4-el): 68.0 % SV(MOD-sp4): 47.1 ml SV(MOD-sp2): 42.3 ml SV(sp4-el): 51.7 ml SI(MOD-sp4): 22.9 ml/m2 SI(MOD-sp2): 20.6 ml/m2 LA A4 area: 16.4 cm2 LA dimension(2D): 4.1 cm RA A4 area: 18.7 cm2 TAPSE: 1.7 cm Time Measurements MV dec time: 0.19 sec Doppler Measurements & Calculations MV E max renny: 105.5 cm/sec Lat Peak E' Renny: 13.2 cm/sec Med Peak E' Renny: 7.4 cm/sec MV A max renny: 84.1 cm/sec E/E' lat: 8.0 E/E' med: 14.2 MV E/A: 1.3 Ao V2 max: 177.9 cm/sec PA V2 max: 90.7 cm/sec MV dec slope: 554.7 cm/sec2 Ao max P.7 mmHg PA V2 mean: 70.6 cm/sec Ao V2 mean: 130.8 cm/sec Ao mean P.3 mmHg Ao V2 VTI: 36.4 cm TR max renny: 264.2 cm/sec TR max P.9 mmHg ECHO/Echo Complete Interpretation Summary The LV systolic function is normal. EF is 60 %. No evidence for diastolic dysfunction. The left atrium is mildly enlarged. The right atrium is moderately enlarged. Moderate mitral annular calcification. Mild (1+) mitral valve insufficiency. Moderate (2+) tricuspid valve insufficiency. Trivial to mild mechanical prosthetic aortic valvular or perivalvular leak. Rec ommend cardiac MRI or MERARI for further evaluation. Mildly dilated aortic root. Ordering Physician: Melida Moore Referring Physician: Chino Patton Chi Performed By: Poppy Arce, BRENDA, RVT
== END | disposition home or self-care (01) ==
LOC: CVS 13:56
PROVIDERS: PCP Family Medicine Geriatric Medicine; Referring Provider Internal Medicine Cardiovascular Disease; Visit Provider Internal Medicine Cardiovascular Disease
DX: I35.1 Nonrheumatic aortic (valve) insufficiency (principal); I71.20 Thoracic aortic aneurysm, without rupture, unspecified; Z95.2 Presence of prosthetic heart valve
CPT/HCPCS: 93306

== ENCOUNTER → 2025-02-20 | Outpatient (CLI) | payer MEDICARE, SELFPAY ==
--- NOTE | 2025-02-20 11:03 | ECHOTEE_ITS ---
Reason For Study Reason For Study: Valve Replacement Eval Medication MERARI probe 6VT-D (SN [id number]) passed without difficulty. No complications were noted. Cetacaine Topical [place] given X3 orally. Versed 2 mg given slow IVP. Fentanyl 50 mcg given slow IVP. Left Ventricle Normal LV size. The left ventricular ejection fraction is 55 %. No regional wall motion abnormalities noted. Right Ventricle Normal RV size. Normal systolic function. Atria Bubble contrast study negative for right to left interatrial shunt. The left atrium is moderately enlarged. No thrombus is detected in the left atrial appendage. The right atrium is mildly enlarged. Mitral Valve Bileaflet diffuse mitral valve thickening. Mild-Moderate (1-2+) eccentric mitral valve insufficiency. Tricuspid Valve Normal tricuspid valve. Aortic Valve Trivial aortic valve insufficiency. Stable appearing mechanical aortic valve apparatus. Pulmonic Valve Normal pulmonic valve. Vessels Normal aortic root. Pericardium No pericardial effusion. Doppler Measurements & Calculations TR max loreta: 231.4 cm/sec ECHO/Echo Transesophageal (MERARI) Interpretation Summary Normal LV size. The left ventricular ejection fraction is 55 %. Trivial aortic valve insufficiency. Stable appearing mechanical aortic valve apparatus. Ordering Physician: Florence Vizcaino Referring Physician: Chino Patton Chi Performed By: Taisha Odom, BRENDA, RVT
== END | disposition home or self-care (01) ==
LOC: CVS 11:03
PROVIDERS: PCP Family Medicine Geriatric Medicine; Referring Provider Physician Assistant Medical; Visit Provider Physician Assistant Medical
DX: Z95.2 Presence of prosthetic heart valve (principal)
CPT/HCPCS: 93312; 93320; 93325; A4216

== ENCOUNTER 2025-02-28 13:46 | Outpatient (RCR) | payer MEDICARE, SELFPAY ==
[2025-02-12 11:25] LABS: INR Fingerstick 2.7; Prothrombin Time Fingerstick 28.4 SEC (11.7-14.9)
[2025-02-20 14:11] LABS: International Normalized Ratio 2.1; Prothrombin Time (Protime)PT. 24.2 SECONDS (11.7-14.9)
[2025-02-28 14:21] LABS: INR Fingerstick 2.2; Prothrombin Time Fingerstick 24.3 SEC (11.7-14.9)
== END 2025-02-28 18:00 | disposition home or self-care (01) ==
LOC: LAB 13:46
PROVIDERS: PCP Family Medicine Geriatric Medicine; Referring Provider Family Medicine Geriatric Medicine; Visit Provider Family Medicine Geriatric Medicine
DX: Z95.2 Presence of prosthetic heart valve; I48.0 Paroxysmal atrial fibrillation
CPT/HCPCS: 36416; 85610

== ENCOUNTER 2025-03-12 19:33 | Emergency (ER) | payer MEDICARE, SELFPAY ==
[2025-03-12 19:33] VITALS: BP 156/88; PULSE 91; RESP 16; TEMP 36.8; O2SAT 98; BMI 41.1
--- NOTE | 2025-03-12 20:33 | EX.ED.DYSGE1 ---
HPI History of Present Illness Chief Complaint: General Illness [facility] Medical History Acute dyspnea ADHD (attention deficit hyperactivity disorder) Aortic aneurysm Aortic regurgitation Atrial fibrillation with rapid ventricular response First detected episode of atrial fibrillation HTN (hypertension) Hypertension Hypothyroidism Obesity (BMI 30-39.9) Other intervertebral disc degeneration, lumbar region Other intervertebral disc degeneration, lumbosacral region Paroxysmal atrial fibrillation Pneumonia Radiculopathy, lumbar region Radiculopathy, lumbosacral region Reactive airway disease Thoracic aortic aneurysm Home Medications ?Medication ?Instructions ?Recorded ?Last Taken ?Type furosemide 40 mg tablet 40 mg PO DAILY leg swelling/weight 09/29/23 Unknown Rx gain #90 tabs ipratropium 0.5 mg-albuterol 3 mg 3 ml inhalation Q6H 05/22/24 Unknown History (2.5 mg base)/3 mL nebulization soln potassium chloride 20 mEq 20 meq PO DAILY 05/22/24 Unknown History tablet,extended release(part/cryst) ipratropium bromide 0.02 % 2.5 ml inhalation Q6H PRN 06/11/24 Unknown Rx solution for inhalation shortness of breath or wheezing #62.5 mL metoprolol tartrate 100 mg tablet 100 mg PO BID #180 tabs 07/05/24 Unknown Rx aspirin 81 mg tablet,delayed 81 mg PO QDAY #90 tabs 01/03/25 Unknown Rx release (Adult Aspirin Regimen) amiodarone 200 mg tablet 200 mg PO QDAY 30 days #30 tabs 01/19/25 Unknown Rx guaifenesin 600 mg tablet, 600 mg PO BID PRN congestion 01/19/25 Unknown History extended release 12 hr (Mucinex) levothyroxine 100 mcg tablet 100 mcg PO QDAY 01/19/25 Unknown History warfarin 6 mg tablet 6 mg PO .COMPLEX #90 tabs 02/15/25 Unknown Rx warfarin 1 mg tablet 1 mg PO .COMPLEX 03/12/25 Unknown History Allergy/AdvReac Type Severity Reaction Status Date / Time Influenza Virus Vaccines Allergy Mild PT UNABLE Verified 03/12/25 19:39 TO RESPOND-NEEDS F/U hydroxychloroquine (From Allergy Hives Verified 03/12/25 19:39 Plaquenil) nalbuphine (From Nubain) Allergy Itching Verified 03/12/25 19:39 Family History Father Cancer Mother Cardiovascular disease Sister Diabetes Mother Hypertension Surgical History H/O mechanical aortic valve replacement partial ovary removed S/P CABG x 1 Social History household members: spouse and children Smoking Status: Former smoker EXAM Physical Exam Const Vital Signs: 03/12/25 19:33 03/12/25 21:33 Temperature 98.3 F Temperature Source Oral Pulse Rate 91 59 L Respiratory Rate 16 16 Blood Pressure 156/88 H 143/52 H Blood Pressure Mean 110 82 Pulse Ox 98 96 Oxygen Delivery Method Room Air Room Air MDM MDM MDM Narrative Medical decision making narrative: HISTORY OF PRESENT ILLNESS: Chief complaint: Multiple complaint 64-year-old female presents with palpitations, anxiety, cough, metallic taste in mouth, concern for dehydrated. Patient states this began several days ago. Denies chest pain. Denies shortness of breath notes she think she may have ear infection. She states something is wrong. She denies headache. Denies fever. Does note a cough productive yellow sputum. She denies leg swelling. Denies trouble urinating. Denies abdominal pain. Denies diarrhea or constipation. Denies vaginal bleeding or discharge. REVIEW OF SYSTEMS: Pertinent positives: As per HPI Pertinent negatives: As per HPI PHYSICAL EXAM: Nursing triage notes reviewed, Vital signs reviewed Constitutional: please see mdm HENT: MMM Eyes: Pupils equal round and reactive to light, Extraocular muscles intact Neck: No stridor, no JVD, full neck ROM Lungs: Clear to auscultation, No wheezing or rales. No increased work of breathing, no conversational dyspnea, no accessory muscle use, no nasal flaring. No respiratory distress noted Heart: Regular rate and rhythm, No murmurs, No rubs and No gallops, 2+ distal pulses (radial, femoral, posterior tibial) in all extremities Abdomen: Soft, there is no tenderness, rigidity, rebound or guarding, no obvious peritoneal signs, no palpable pulsatile abdominal masses, no auscultated abdominal bruit : No CVAT Extremities: No edema Neuro: No new focal neurological deficits, cranial nerves II through XII intact, 5/5 strength in all present extremities. Intact sensation to light touch in all present extremities, 2+ reflexes bilateral patella tendons. Skin: No rash or lesions noted MEDICAL DECISION MAKING: Chief Complaint: please see HPI External records reviewed: Reviewed prior echocardiogram. Reviewed echocardiogram January 03, 2025 showed ejection fraction 60% Factors affecting care: Obesity, CAD status post CABG, A-fib on warfarin, hypertension, hypothyroidism, Social determinants of health: none History obtained from others: none Consults: none MDM Narrative: Patient was initially hemodynamically stable, afebrile, nontoxic-appearing. Exam without focal cardiopulmonary abnormalities. I considered the following differential diagnosis: ALL IMAGES (IF OBTAINED) HAVE BEEN PERSONALLY REVIEWED AND INTERPRETED BY MYSELF. I have personally reviewed the patient's chest x-ray. Chest x-ray is unremarkable for pulmonary edema, pneumothorax, pneumonia or focal cardiopulmonary abnormality. CBC without leukocytosis to suggest systemic examination, noted mild anemia that is worse than baseline, no thrombocytopenia CMP without evidence of acute kidney injury, significant electrolyte abnormality, anion gap to suggest end organ hypo-perfusion, no evidence of metabolic acidosis with a normal bicarbonate, no evidence of hepatobiliary obstructive pathology. High-sensitivity troponin is negative, no evidence of myocardial ischemia INR slightly supratherapeutic at 3.7 (will encourage patient to follow-up with her prescribing physician for outpatient titration) The synthesis of the patient's history, physical exam, labs images suggest no acute life or limb threatening etiology. No clear precipitating cause of her symptoms. The patient is appropriate for discharge home. Strict return precautions were discussed. Outpatient follow-up discussed. The patient and/or family, caregivers express understanding. The patient and/or family, caregivers agrees with the plan. Shared decision making: I will have a discussion with the patient and or visitors regarding risk/benefits of further testing or admission. They will be made aware of of the risk/benefits inherent in this decision they will be given the opportunity to voice understanding. Total critical care time today provided was at least 0 minutes. This excludes separately billable procedures. Critical care time (if documented) is secondary to the patient having high probability of clinically significant/life threatening deterioration in the patient's condition which required my urgent intervention. Impression: 1. Palpitations 2. Cough Dispo: Discharge home This note was generated with [employer] dictation software. It may contain incorrect words, spelling, and punctuation that were not noted in review of the chart prior to signing. Lab Data Labs: Laboratory Results - last 24 hr 03/12/25 20:58 WBC 4.9 RBC 3.27 L Hgb 9.6 L Hct 30.1 L MCV 92.0 MCH 29.4 MCHC 31.9 L RDW Std Deviation 54.4 H RDW Coeff of [place]ango 16.6 H Plt Count 232 MPV 8.9 PT 37.3 H INR 3.7 Sodium 138 Potassium 4.1 Chloride 104 Carbon Dioxide 23.2 Anion Gap 11 BUN 10 Creatinine 0.74 Estim Creat Clear Calc 94.91 Est GFR (MDRD) Non-Af 92 BUN/Creatinine Ratio 14.1 Glucose 87 Calcium 8.9 Total Bilirubin 0.33 AST 33 H ALT 16 Alkaline Phosphatase 108 H Troponin T High Sens < 6 Total Protein 7.0 Albumin 3.7 Globulin 3.3 Albumin/Globulin Ratio 1.1 Radiography Diagnostic Testing: Clinical Impression(s) from Imaging Studies Chest X-Ray 03/12/25 21:20 IMPRESSION: No Acute Findings. Reading Location: [id number] Discharge Plan Triage Chief Complaint: General Illness ED Provider: David Be Dx/Rx/DC Orders Clinical Impression: Heart palpitations Instructions: ED Palpitations Prescriptions: No Action aspirin [Adult Aspirin Regimen] 81 mg tablet,delayed release (DR/EC) 81 mg PO QDAY Qty: 90 3RF guaifenesin [Mucinex] 600 mg tablet extended release 12hr 600 mg PO BID PRN (Reason: congestion) levothyroxine 100 mcg tablet 100 mcg PO QDAY amiodarone 200 mg tablet 200 mg PO QDAY 30 Days Qty: 30 11RF warfarin 1 mg tablet 1 mg PO .COMPLEX Protocol: Dose Management Condition: Wednesday Dose/Route: 6.5 mg Instruction: 6.5 x 1 mg tablets Condition: Wednesday Dose/Route: 6.5 mg Instruction: 6.5 x 1 mg tablets Condition: Wednesday Dose/Route: 7 mg Instruction: 1 x 1 mg tablet, 1 x 6 mg tablet Condition: Wednesday Dose/Route: 6.5 mg Instruction: 6.5 x 1 mg tablets Condition: Dose/Route: 7 mg Instruction: 1 x 1 mg tablet, 1 x 6 mg tablet Condition: Wednesday Dose/Route: 6.5 mg Instruction: 6.5 x 1 mg tablets Condition: Wednesday Dose/Route: 6.5 mg Instruction: 6.5 x 1 mg tablets Protocol Text: Adjustment Start Date: Wednesday02/28/25 INR Value: 2.2 INR Date: 02/28/25 Recheck Date: 03/07/25 Rx Instructions: 1 mg orally tablet daily with a 6mg tablet to = 7 MG TOTAL ipratropium-albuterol 0.5 mg-3 mg(2.5 mg base)/3 mL solution for nebulization 3 ml inhalation Q6H potassium chloride 20 mEq tablet,ER particles/crystals 20 meq PO DAILY ipratropium bromide 0.02 % solution 2.5 ml inhalation Q6H PRN (Reason: shortness of breath or wheezing) Qty: 62.5 0RF furosemide 40 mg tablet 40 mg PO DAILY Qty: 90 3RF metoprolol tartrate 100 mg tablet 100 mg PO BID Qty: 180 3RF warfarin 6 mg tablet 6 mg PO .COMPLEX Qty: 90 3RF Protocol: Dose Management Condition: Wednesday Dose/Route: 6.5 mg Instruction: 6.5 x 1 mg tablets Condition: Wednesday Dose/Route: 6.5 mg Instruction: 6.5 x 1 mg tablets Condition: Wednesday Dose/Route: 7 mg Instruction: 1 x 1 mg tablet, 1 x 6 mg tablet Condition: Wednesday Dose/Route: 6.5 mg Instruction: 6.5 x 1 mg tablets Condition: Dose/Route: 7 mg Instruction: 1 x 1 mg tablet, 1 x 6 mg tablet Condition: Wednesday Dose/Route: 6.5 mg Instruction: 6.5 x 1 mg tablets Condition: Wednesday Dose/Route: 6.5 mg Instruction: 6.5 x 1 mg tablets Protocol Text: Adjustment Start Date: Wednesday02/28/25 INR Value: 2.2 INR Date: 02/28/25 Recheck Date: 03/07/25 Rx Instructions: 6 mg orally take daily with 1/2 of a 1 mg tablet to = 6.5 mg daily; Primary Care Provider: Care Physician,No Primary Referrals: Chino Patton Chi, MD [Med Staff - Active Staff] - Activity Restrictions/Additional Instructions: Thank you for trusting us with your care today! Your labs images were reassuring. Specifically no sign of damage to your heart, abnormal heart rhythms, pneumonia, significant systemic inflammation, etc. Please take Tylenol (2 pills, 650 mg), ibuprofen (2 pills, 400 mg) every 6 hours as needed for pain and fever control. Please return to the emergency department if your symptoms change or worsen. Please follow with your primary care physician for further outpatient evaluation and management. Print Language: [place] Disposition Disposition: Home, Self Care
--- NOTE | 2025-03-12 21:16 | EKG12_ITS ---
Test Reason : DYSRHYTHMIA Blood Pressure : */* mmHG Vent. Rate : 80 BPM Atrial Rate : 80 BPM P-R Int : 194 ms QRS Dur : 68 ms QT Int : 398 ms P-R-T Axes : 52 -10 20 degrees QTcB Int : 459 ms Normal sinus rhythm Minimal voltage criteria for LVH, may be normal variant ( R in aVL ) Borderline ECG Confirmed by Richy Sebastian ([id number]), industrial editor DICK SEALS ([id number]) on 03/13/2025 11:15:32 AM Referred By: CHINTAN Confirmed By: Richy Sebastian
--- NOTE | 2025-03-12 21:20 | RAD_ITS ---
PROCEDURE: CHEST 1 VIEW (PORTABLE) 03/12/2025 REASON FOR EXAM: COUGH TECHNIQUE: Frontal view of the chest. COMPARISON: Chest radiograph 06/11/2024. FINDINGS: Hardware: Prior median sternotomy, CABG and left atrial appendage clip. Heart: The heart size is normal. Lungs: No focal consolidation, pleural effusion or pneumothorax. Bones: Degenerative changes are identified within the thoracic spine. RAD/Chest 1 View (Portable) IMPRESSION: No Acute Findings. Reading Location: [id number]
[2025-03-12 21:33] VITALS: BP 143/52; PULSE 59; RESP 16; O2SAT 96
[2025-03-12 21:46] LABS: Hematocrit 30.1 % (37-47); Hemoglobin 9.6 g/dL (12.0-15.0); Mean Corp Hgb Conc 31.9 g/dL (32-36); Mean Corpuscular Hgb 29.4 pg (27.0-32.0); Mean Platelet Vol. 8.9 fl (6.2-12.0); Platelet Count 232 K/mm3 (150-450); RBC Distribution Width CV 16.6 % (11.6-14.6); RBC Distribution Width SD 54.4 fl (35.1-43.9); Red Blood Count 3.27 M/mm3 (4.2-5.4); White Blood Count 4.9 K/mm3 (4.4-11.0)
[2025-03-12 21:55] LABS: ALB/GLOB Ratio 1.1 RATIO (0.9-2.4); AST(SGOT) 33 U/L (<=31); Alanine Aminotransfer ALT/SGPT 16 U/L (<=34); Albumin, Serum 3.7 g/dL (3.4-4.8); Alkaline Phosphatase 108 U/L (35-104); Anion Gap 11 (5-15); BUN 10 mg/dL (4-19); BUN/Creat Ratio 14.1 RATIO (10-20); Calcium,Total 8.9 mg/dL (7.6-11.0); Carbon Dioxide 23.2 mmol/L (21.0-32.0); Chloride 104 mmol/L (98-108); Creatinine, Serum 0.74 mg/dL (0.70-1.20); EST Glomerular Filtration Rate 92 (>60); Estimated Creatinine Clearance 94.91 ml/min (50-250); Globulin 3.3 g/dL (2.2-4.2); Glucose 87 mg/dL (70-99); Potassium 4.1 mmol/L (3.3-5.1); Sodium Level 138 mmol/L (133-145); Total Bilirubin 0.33 mg/dL (0.00-1.30)
--- NOTE | 2025-03-12 22:05 | CM.ED ---
Social work Reason for referral: no PCP Referral source: case find This SW identified patient's lack of PCP and need for resources. SW entered patient's room, introducing self and role at [facility]. Patient confirmed lack of PCP and need for resources. Patient accepted resources of [facility] Provider Directory and Norma Albright information, though patient stated [place] struggling with doctors and nobody having openings for months. No further resources needed at this time. Betsey Hollins, SPORTING GOODS SALESPERSON, [employer] L[employer]OGRAPHER
[2025-03-12 22:24] LABS: Troponin T High Sensitivity < 6 ng/L (<=14)
[2025-03-12 22:50] LABS: International Normalized Ratio 3.7; Prothrombin Time (Protime)PT. 37.3 SECONDS (11.7-14.9)
--- NOTE | 2025-03-12 23:13 | ED.RN ---
pt was not happy with the Emergency Md,Dr Hinds because had asked her earlier what she was ok with us doing i.e. lab wrk,EKG and X-ray. pt was offendd attemped to explain to the pt and did not get the pt to comprehend that some pt's do not want certain things.
[2025-03-12 23:15] VITALS: BP 166/90; PULSE 69; RESP 18; TEMP 36.9; O2SAT 97
== END 2025-03-12 23:16 | disposition home or self-care (01) ==
PROVIDERS: Emergency Provider Emergency Medicine; Visit Provider Emergency Medicine
DX: I48.0 Paroxysmal atrial fibrillation (principal); R05.9 Cough, unspecified; Z79.01 Long term (current) use of anticoagulants; Z87.891 Personal history of nicotine dependence
CPT/HCPCS: 71045; 80053; 84484; 85027; 85610; 93005; 99283; A4216

== ENCOUNTER 2025-03-28 12:05 | Outpatient (RCR) | payer MEDICARE, SELFPAY ==
[2025-03-28 15:48] LABS: International Normalized Ratio 1.3; Prothrombin Time (Protime)PT. 16.6 SECONDS (11.7-14.9)
== END 2025-03-28 18:00 | disposition home or self-care (01) ==
LOC: LAB 12:05
PROVIDERS: Internal Medicine Clinical Cardiac Electrophysiology; Referring Provider Family Medicine Geriatric Medicine; Visit Provider Family Medicine Geriatric Medicine
DX: Z95.2 Presence of prosthetic heart valve; I48.0 Paroxysmal atrial fibrillation
CPT/HCPCS: 36415; 85610

== ENCOUNTER 2025-04-26 12:58 | Outpatient (RCR) | payer MEDICARE, SELFPAY ==
[2025-04-03 16:25] LABS: Prothrombin Time (Protime)PT. 25.8 SECONDS (11.7-14.9)
[2025-04-03 17:50] LABS: Hematocrit 33.8 % (37-47); Hemoglobin 10.5 g/dL (12.0-15.0); Immature Granulocytes Count 0.030 X10^3/uL (0.0-0.0); Mean Corp Hgb Conc 31.1 g/dL (32-36); Mean Corpuscular Volume 98.3 fL (81-99); Mean Platelet Vol. 9.6 fl (6.2-12.0); NRBC Flagged by Analyzer 0 % (0-5); POSITIVE MORPHOLOGY YES; Platelet Count 323 K/mm3 (150-450); RBC Distribution Width CV 18.3 % (11.6-14.6); RBC Distribution Width SD 66.5 fl (35.1-43.9); Red Blood Count 3.44 M/mm3 (4.2-5.4); White Blood Count 5.9 K/mm3 (4.4-11.0)
[2025-04-03 18:04] LABS: Iron 29 ug/dL (50-170); Iron Binding Capacity,Total 397 ug/dL (250-450); Iron Binding Capacity,Unsat 368 ug/dL (228-428)
[2025-04-03 18:05] LABS: FOLATES,SERUM (FOLIC ACID) 15.30 ng/mL (4.60-34.80); Ferritin 18 ng/mL (22-378); Vitamin B12 < 150 pg/mL (180-914)
[2025-04-03 19:09] LABS: Differential Indicated SCAN CRITERIA MET
[2025-04-03 22:05] LABS: Anisocytosis 2+; Differential Comment SCANNED
[2025-04-03 22:06] LABS: Polychromasia 1+
[2025-04-26 13:42] LABS: Prothrombin Time (Protime)PT. 37.8 SECONDS (11.7-14.9)
== END 2025-05-03 21:15 | disposition home or self-care (01) ==
LOC: LAB 12:58
PROVIDERS: Family Medicine Geriatric Medicine; Visit Provider Internal Medicine Cardiovascular Disease
DX: Z95.2 Presence of prosthetic heart valve; E03.9 Hypothyroidism, unspecified; D50.9 Iron deficiency anemia, unspecified; R73.01 Impaired fasting glucose; G62.9 Polyneuropathy, unspecified; I48.0 Paroxysmal atrial fibrillation
CPT/HCPCS: 36415; 82607; 82728; 82746; 83036; 83540; 83550; 84439; 84443; 85025; 85610

== ENCOUNTER → 2025-04-26 | Outpatient (CLI) | payer MEDICARE, SELFPAY ==
[2025-04-26 20:11] LABS: Barbiturate Urine NEGATIVE (< 200 ng/mL); Benzodiazepine Urine NEGATIVE (< 200 ng/mL); PCP Urine NEGATIVE (< 25 ng/mL); THC Urine NEGATIVE (< 50 ng/mL)
== END | disposition home or self-care (01) ==
LOC: LABSPEC 17:17
PROVIDERS: Visit Provider Anesthesiology Pain Medicine
DX: F11.20 Opioid dependence, uncomplicated (principal)
CPT/HCPCS: 80307

== ENCOUNTER 2025-05-31 12:01 | Outpatient (RCR) | payer MEDICARE, SELFPAY ==
[2025-05-31 12:54] LABS: Prothrombin Time (Protime)PT. 47.1 SECONDS (11.7-14.9)
[2025-05-31 13:48] LABS: Cholesterol 232 mg/dL (<=200); Low Density Lipoprotein Calc. 146 mg/dL; Triglycerides 162 mg/dL; Very Low Density Lipoprotein 32 mg/dL (5-40); cholesterol:hdl ratio screen 4.30
== END 2025-05-31 18:00 | disposition home or self-care (01) ==
LOC: LAB 12:01
PROVIDERS: Referring Provider Internal Medicine Cardiovascular Disease; Visit Provider Internal Medicine Cardiovascular Disease
DX: E78.5 Hyperlipidemia, unspecified (principal); Z79.01 Long term (current) use of anticoagulants
CPT/HCPCS: 36415; 80061; 85610

== ENCOUNTER 2025-06-28 09:54 | Outpatient (RCR) | payer MEDICARE, SELFPAY ==
[2025-06-05 16:32] LABS: Hematocrit 35.5 % (37-47); Hemoglobin 10.8 g/dL (12.0-15.0); Immature Granulocytes Count 0.020 X10^3/uL (0.0-0.0); Mean Corp Hgb Conc 30.4 g/dL (32-36); Mean Corpuscular Volume 89.6 fL (81-99); Mean Platelet Vol. 10.6 fl (6.2-12.0); NRBC Flagged by Analyzer 0 % (0-5); Platelet Count 309 K/mm3 (150-450); RBC Distribution Width CV 16.2 % (11.6-14.6); RBC Distribution Width SD 53.0 fl (35.1-43.9); Red Blood Count 3.96 M/mm3 (4.2-5.4); White Blood Count 7.2 K/mm3 (4.4-11.0)
[2025-06-05 16:55] LABS: Ferritin 16 ng/mL (22-378); Iron 29 ug/dL (50-170); Iron Binding Capacity,Total 408 ug/dL (250-450); Iron Binding Capacity,Unsat 379 ug/dL (228-428); Vitamin B12 407 pg/mL (180-914)
[2025-06-05 17:41] LABS: Prothrombin Time (Protime)PT. 25.7 SECONDS (11.7-14.9)
[2025-06-18 17:47] LABS: Anion Gap 11 (5-15); BUN 18 mg/dL (4-19); BUN/Creat Ratio 14.8 RATIO (10-20); Calcium,Total 9.4 mg/dL (7.6-11.0); Carbon Dioxide 26.4 mmol/L (21.0-32.0); Chloride 100 mmol/L (98-108); Glucose 110 mg/dL (70-99); Potassium 4.4 mmol/L (3.3-5.1)
[2025-06-18 18:19] LABS: Prothrombin Time (Protime)PT. 42.4 SECONDS (11.7-14.9)
[2025-06-22 12:44] LABS: Prothrombin Time (Protime)PT. 29.4 SECONDS (11.7-14.9)
[2025-06-28 11:00] LABS: Prothrombin Time (Protime)PT. 31.7 SECONDS (11.7-14.9)
== END 2025-07-03 18:00 | disposition home or self-care (01) ==
LOC: LAB 09:54
PROVIDERS: Referring Provider Nurse Practitioner Family; Visit Provider Internal Medicine Cardiovascular Disease
DX: Z79.01 Long term (current) use of anticoagulants (principal); Z95.2 Presence of prosthetic heart valve; D50.9 Iron deficiency anemia, unspecified; E03.9 Hypothyroidism, unspecified
CPT/HCPCS: 36415; 80048; 82607; 82728; 83540; 83550; 84439; 84443; 85025; 85610